=== PATIENT | female | born 1980 | race Caucasian/White ===

== ENCOUNTER → 2017-11-07 10:07 | Outpatient (CLI) | payer OTHER, SELFPAY ==
--- NOTE | 2017-11-07 10:09 | DI.US.S_ITS ---
PROCEDURE: US OB <= 14 WEEKS FETUS INDICATIONS: threatened ab OUTSIDE/PRIOR DATING DATA: Last menstrual period (LMP): Not available. LMP-based estimated date of delivery (MARCY): Not available. First dating scan (date and location): 11/07/17, this study. Estimated date of delivery (MARCY) from first dating scan: 06/23/18, plus or -5 days, assuming viable gestation. No cardiac activity was observed. TECHNIQUE: Real-time scanning was performed of the fetus and maternal pelvic organs, with image documentation. Endovaginal scanning was also performed to better visualize the fetus and maternal ovaries. COMPARISON: [facility], [place], KIDNEY/ URETER/BLADDER, 06/21/2014, 10:55. [facility], PELVIC COMPLETE, 06/21/2014, 12:38. [facility], OB COMPLETE LESS THAN 14 WKS, 10/18/2015, 16:40. [facility], OB COMPLETE LESS THAN 14 WKS, 10/27/2015, 15:34. [facility], PELVIC COMPLETE, 11/14/2015, 15:34. FINDINGS: Embryo: [place] rump length 1.2 cm correlates with a gestational age estimate of 7 weeks 3 days, but no cardiac activity was observed. Measurement variability in dating: +/- 4 weeks by LMP, +/- 7 days by mean sac diameter (use before 6 weeks gestation if crown-rump length not able to be measured), +/- 5 days by crown-rump length (up to 8 weeks 6 days gestation), +/- 7 days by crown-rump length (up to 13 weeks 6 days gestation). Maternal organs: Ovaries normal. Limited images through the kidneys demonstrate no hydronephrosis. Arcuate morphology of the uterus, right upper lateral positioning of the current gestational sac.. IMPRESSION: [place]-rump length of 1.2 cm correlates with a gestational age estimate of 7 weeks 3 days assuming viable gestation, but no cardiac activity was observed ( demise). The configuration of the upper uterus is arcuate in morphology, the gestational structures are located within the upper right margin of the endometrial space.. Dictated by: Varghese Ken M.D. on 11/07/2017 at 11:21 Approved by: Varghese Ken M.D. on 11/07/2017 at 11:29
== END ==
PROVIDERS: PCP Family Medicine; Visit Provider Obstetrics & Gynecology
DX: O20.0 Threatened abortion (principal)
CPT/HCPCS: 76801

== ENCOUNTER 2017-11-08 19:03 | Emergency (ER) | payer OTHER, SELFPAY ==
[2017-11-08 19:07] VITALS: BP 127/81; PULSE 112; RESP 23; TEMP 36.6; O2SAT 100; BMI 22.4
--- NOTE | 2017-11-08 19:29 | ED.PREGNANCY ---
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 She denies fever or chills and has had only minimal spotting but admits to very intense pelvic discomfort in the absence of provocation, palliation or radiation. She denies vaginal discharge or urinary complaints such as dysuria, frequency or urgency. She had a RhoGAM shot 2 days ago MD Complaint: vaginal bleeding Onset (ago): day(s) Pain Consistency: constant Location: pelvis Severity: moderate Quality: Aching, Burning and Constant Radiation: pelvis Relieving factors: none Exacerbating factors: movement Associated symptoms: nausea Vaginal discharge: none Vaginal bleeding: light OB History - Current : no complications OB History - Previous Pregnancies: miscarriage care: followed by OB Related Data Previous Rx's Medication Instructions Recorded alprazolam 0.5 mg PO QDAY #60 tab 02/12/17 ondansetron HCl [Zofran] 4 mg PO Q6-8H PRN #20 tab 11/08/17 tramadol [Ultram] 50 mg PO Q6H PRN #20 tab 11/08/17 Allergies Allergy/AdvReac Type Severity Reaction Status Date / Time hydromorphone [HYDROMORPHONE] AdvReac Severe severe Unverified 09/04/17 09:46 vomiting and dizziness amoxicillin [From AUGMENTIN] AdvReac Mild vomiting Unverified 09/04/17 09:46 ciprofloxacin [From CIPRO] AdvReac Mild vomiting Unverified 09/04/17 09:46 clavulanic acid AdvReac Mild vomiting Unverified 09/04/17 09:46 [From AUGMENTIN] favian [FAVIAN] AdvReac Mild vomiting Unverified 09/04/17 09:46 papaya [PAPAYA] AdvReac Mild vomiting Unverified 09/04/17 09:46 tramadol [TRAMADOL] AdvReac Mild vomiting Unverified 09/04/17 09:46 Review of Systems Review of Systems All systems reviewed & are unremarkable except as noted in HPI and below Constitutional Denies chills, Denies fever(s), Denies lethargy and Denies weakness Eyes Denies change in vision, Denies eye discharge, Denies irritation and Denies loss of vision ENT Ears, Nose, Mouth, and Throat: Denies change in voice, Denies neck pain and Denies sore throat Cardiovascular Denies chest pain, Denies irregular heart rhythm, Denies lightheadedness, Denies palpitations, Denies dyspnea, Denies dyspnea on exertion and Denies orthopnea Respiratory Denies cough, Denies dyspnea, Denies dyspnea on exertion and Denies wheezing Gastrointestinal Gastrointestinal: Denies abdominal pain, Denies change in bowel habits, Denies diarrhea, Denies nausea and Denies vomiting Genitourinary Reports abnormal vaginal bleeding, Denies hematuria, Reports pelvic pain, Denies flank pain, Denies urinary incontinence and Denies urinary urgency Musculoskeletal Denies neck pain Integumentary/Breasts Denies pruritus, Denies erythema, Denies rash and Denies wounds Neurologic Denies confusion, Denies loss of vision and Denies weakness Psychiatric Denies anxiety, Denies confusion, Denies depression, Denies homicidal ideation and Denies suicidal ideation Endocrine Denies palpitations Hematologic/Lymphatic Denies easy bruising Allergic/Immunologic Denies wheezing PMFSH - Past Medical History Medical history: Reports non-contributory 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 Extraoccular muscles are intact bilaterally. There is no subconjunctival hemorrhage or exudate. CHEST: Lungs are clear to auscultation bilaterally and free of wheezes, rales, or rhonchi. Heart rate is regular rhythm, there are no murmurs, clicks, rubs, or gallops. There is no chest wall tenderness. ABD: Abdomen is soft and moderately tender in her suprapubic region. There is no guarding or rebound. Bowel sounds are normal in all 4 quadrants. There is no mass or organomegaly. EXT: Full painless ROM of all extremities with no loss of sensation or strength. SKIN: Warm, pink, and dry. No erythema or rash Initial Vital Signs Initial Vital Signs: Vital Signs Temperature 97.8 F 11/08/17 19:07 Pulse Rate 112 H 11/08/17 19:07 Respiratory Rate 23 11/08/17 19:07 Blood Pressure 127/81 H 11/08/17 19:07 Pulse Oximetry 100 11/08/17 19:07 Course Orders Ordered: ED Orders 11/08/17 19:55 Basic Metabolic Panel Stat Complete Blood Count AUTO DIFF Stat HCG Quantitative Stat Discontinued Medications Sodium Chloride (Normal Saline 0.9%) 1,000 mls @ 1,000 mls/hr IV BOLUS ONE Stop: 11/08/17 20:44 Last Admin: 11/08/17 21:14 Dose: Not Given Misoprostol (Cytotec) 400 mcg PO NOW ONE Stop: 11/08/17 20:26 Last Admin: 11/08/17 21:14 Dose: Not Given Morphine Sulfate (Morphine) 4 mg IV NOW ONE Stop: 11/08/17 20:11 Last Admin: 11/08/17 20:12 Dose: 4 mg Ondansetron HCl (Zofran) 4 mg IV Q4HR PRN PRN Reason: Nausea And Vomiting Last Admin: 11/08/17 20:12 Dose: 4 mg Ondansetron HCl (Zofran Odt Prepack) 1 bottle MISC SEEINSTR ONE Stop: 11/08/17 21:05 Last Admin: 11/08/17 21:14 Dose: 1 bottle Tramadol HCl (Ultram 50mg Prepack) 1 bottle MISC SEEINSTR ONE Stop: 11/08/17 21:05 Last Admin: 11/08/17 21:14 Dose: 1 bottle Reevaluation(s) Reevaluation #1: Patient feels much better after above-stated medications. She refuses Cytotec given a bad experience in the past in which her pelvic discomfort was tremendously worsened after administration. She does state she just used the restroom and thinks she passed some tissue and now feels a bit better. She flushed the toilet and we are unable to see Consultations Consultation #1: Called to Dr. Ovalle whom recommends Cytotec 400 mg p.o. Vital Signs - 8 hr 11/08/17 19:07 11/08/17 20:23 11/08/17 21:18 Temperature 97.8 F 98.0 F Pulse Rate 112 H 71 72 Respiratory Rate 23 16 Blood Pressure 127/81 H Blood Pressure [Left Arm] 103/39 L 91/57 L Pulse Oximetry 100 99 99 MDM - OB/Uterine Contractions Lab Data Result diagrams: 11/08/17 19:55 11/08/17 19:55 Lab Results 11/08/17 11/08/17 11/08/17 Range/Units 19:55 19:55 19:55 WBC 12.2 H (4.5-11.0) X10^3/uL RBC 4.25 (4.0-5.2) X10^6/uL Hgb 12.7 (12.0-16.0) g/dL Hct 36.9 (36-46) % MCV 86.8 (80-100) fL MCH 29.9 (26-34) PG MCHC 34.5 (30-36) % RDW 12.0 (11.6-14.8) % Plt Count 307 (150-400) X10^3/uL Neut % (Auto) 68.4 (50-75) % Lymph % (Auto) 21.5 L (25-40) % [place] % (Auto) 6.4 (3-14) % Eos % (Auto) 3.0 (2-4) % Baso % (Auto) 0.7 (0-2) % Neut # (Auto) 8400 H (1262-8779) /uL Sodium 140 (137-145) mmol/L Potassium 4.5 (3.4-5.1) mmol/L Chloride 104 (98-107) mmol/L Carbon Dioxide 25 (22-32) mmol/L BUN 12 (7-17) mg/dL Creatinine 0.60 (0.52-1.04) mg/dL Estimated GFR > 60.0 (>60) mL/min BUN/Creatinine Ratio 20.0 (6-22) Glucose 93 (70-100) mg/dL Calcium 9.3 (8.4-10.2) mg/dL HCG, Quant 3269.6 mIU/mL Discharge Plan Departure Patient Disposition: Home Clinical Impression: , missed Discharge Date/Time: 11/08/17 21:25 Interventions: ED Discharge Assessment Last Done: 11/08/17 21:24 Instructions: DI for Miscarriage Activity Restrictions/Additional Instructions: *You have been diagnosed with [ missed ] *What to do: *Take medications as directed *Follow up with your primary care provider in 2-3 days, call for an appointment. Let them know you were seen in the Emergency Department and that we ask that you be seen in follow up *Return to ER if you should have any new, worsening or concerning symptoms Prescriptions: New ondansetron HCl [Zofran] 4 mg tablet 4 mg PO Q6-8H PRN (Reason: nausea and vomiting) Qty: 20 RF: 0 tramadol [Ultram] 50 mg tablet 50 mg PO Q6H PRN (Reason: pain) Qty: 20 RF: 0 No Action alprazolam 0.5 MG tablet 0.5 mg PO QDAY Qty: 60 RF: 5 Referrals: Jenifer Ovalle MD [Physician] -
[2017-11-08 20:02] LABS: Add Manual Diff / Slide Review NO; Basophils Percent Auto 0.7 % (0-2); Hematocrit 36.9 % (36-46); Hemoglobin 12.7 g/dL (12.0-16.0); Lymphocytes Percent Auto 21.5 % (25-40); Mean Corpuscular HGB Conc 34.5 % (30-36); Mean Corpuscular Hemoglobin 29.9 PG (26-34); Mean Corpuscular Volume 86.8 fL (80-100); Monocytes Percent Auto 6.4 % (3-14); Neutrophils Absolute Auto 8400 /uL (3000-5900); Neutrophils Percent Auto 68.4 % (50-75); Platelet Count 307 X10^3/uL (150-400); Red Blood Cell Count 4.25 X10^6/uL (4.0-5.2); White Blood Cell Count 12.2 X10^3/uL (4.5-11.0)
[2017-11-08] MEDS: ONDANSETRON 4 MG/2 ML INJ IV (20:12)
[2017-11-08] MEDS: MORPHINE 4 MG/ML INJ IV (20:12)
[2017-11-08 20:13] LABS: Blood Urea Nitrogen 12 mg/dL (7-17); Calcium 9.3 mg/dL (8.4-10.2); Carbon Dioxide 25 mmol/L (22-32); Chloride 104 mmol/L (98-107); Estimated Glomerular Filt Rate > 60.0 mL/min (>60); Glucose 93 mg/dL (70-100); Potassium 4.5 mmol/L (3.4-5.1); Sodium 140 mmol/L (137-145)
[2017-11-08 20:14] LABS: HEMOLYSIS 85 (0-50)
[2017-11-08 20:23] VITALS: BP 103/39; PULSE 71; RESP 16; TEMP 36.7; O2SAT 99
--- NOTE | 2017-11-08 20:25 | PC.NURSE ---
pt reports feeling passed sac while in the restroom.
[2017-11-08 20:38] LABS: HCG Quantitative /Beta subunit 3269.6 mIU/mL
[2017-11-08] MEDS: ONDANSETRON 4 MG ODT PREPACK 1 BOTTLE MISC (21:14)
[2017-11-08] MEDS: TRAMADOL 50 MG PREPACK 1 BOTTLE MISC (21:14)
[2017-11-08 21:18] VITALS: BP 91/57; PULSE 72; O2SAT 99
== END 2017-11-08 21:25 | disposition home or self-care (01) ==
PROVIDERS: Emergency Provider Emergency Medicine; PCP Family Medicine
DX: O02.1 Missed abortion (principal)
CPT/HCPCS: 36591; 80048; 84702; 85025; 96374; 96375; 99282; 99284; J2270; J2405

== ENCOUNTER → 2017-11-24 15:22 | Outpatient (CLI) | payer OTHER, SELFPAY | PROVIDERS: PCP Family Medicine; Visit Provider Obstetrics & Gynecology | DX: O03.9 Complete or unspecified spontaneous abortion without complication (principal) | CPT/HCPCS: 36415 ==

== ENCOUNTER → 2018-06-09 08:07 | Outpatient (CLI) | payer OTHER, SELFPAY ==
[2018-06-09 09:21] LABS: Add Manual Diff / Slide Review NO; Basophils Absolute Auto 0 /uL (0-100); Basophils Percent Auto 0.5 % (0-2); Eosinophils Absolute Auto 100 /uL (0-450); Eosinophils Percent Auto 0.9 % (2-4); Hemoglobin 14.1 g/dL (12.0-16.0); Lymphocytes Absolute Auto 2000 /uL (1100-4500); Lymphocytes Percent Auto 26.5 % (25-40); Mean Corpuscular HGB Conc 34.4 % (30-36); Mean Corpuscular Hemoglobin 30.9 PG (26-34); Mean Corpuscular Volume 89.9 fL (80-100); Monocytes Absolute Auto 500 /uL (0-900); Monocytes Percent Auto 7.1 % (3-14); Neutrophils Absolute Auto 4800 /uL (1500-7000); Platelet Count 305 X10^3/uL (150-400); Red Blood Cell Count 4.56 X10^6/uL (4.0-5.2); Red Cell Distribution Width 13.5 % (11.6-14.8); White Blood Cell Count 7.4 X10^3/uL (4.5-11.0)
[2018-06-09 09:43] LABS: Alanine Aminotransferase 26 IU/L (9-52); Albumin 4.4 g/dL (3.5-5.0); Albumin Globulin Ratio 1.5 (1.0-2.8); Alkaline Phosphatase 57 U/L (38-126); Aspartate Aminotransferase 27 IU/L (14-36); BUN Creatinine Ratio 18.3 (6-22); Bilirubin Total 0.8 mg/dL (0.2-1.3); Blood Urea Nitrogen 11 mg/dL (7-17); Calcium 9.3 mg/dL (8.4-10.2); Carbon Dioxide 22 mmol/L (22-32); Chloride 103 mmol/L (98-107); Cholesterol 232 mg/dL (140-199); Estimated Glomerular Filt Rate > 60.0 mL/min (>60); Glucose 81 mg/dL (70-100); HDL Cholesterol 59 mg/dL (40-60); HEMOLYSIS < 15 (0-50); LDL Cholesterol Calculated 150 mg/dL (<100); Potassium 4.1 mmol/L (3.4-5.1); Sodium 138 mmol/L (137-145); Total Protein 7.4 g/dL (6.3-8.2); Triglycerides 114 mg/dL (35-150)
[2018-06-09 09:59] LABS: Free T3, Triiodothyronine Free 3.31 pg/mL (2.77-5.27); Free T4, Direct Thyroxine 1.01 ng/dL (0.78-2.19)
[2018-06-09 10:20] LABS: Ferritin 40.9 ng/mL (6.27-137)
[2018-06-10 15:12] LABS: Thyroid Peroxidase Antibodies 1 IU/mL (< 9)
== END ==
PROVIDERS: PCP Family Medicine; Visit Provider Naturopath
DX: Z00.00 Encounter for general adult medical examination without abnormal findings (principal); R53.83 Other fatigue; Z83.49 Family history of other endocrine, nutritional and metabolic diseases
CPT/HCPCS: 36415; 80053; 80061; 82728; 84439; 84443; 84481; 85025; 86376

== ENCOUNTER → 2018-11-23 15:13 | Outpatient (CLI) | payer OTHER, SELFPAY ==
[2018-11-23 20:10] LABS: Urine N gonorrhoeae NOT DETECTED
[2018-11-23 20:12] LABS: Urine Chlamydia NOT DETECTED
== END ==
PROVIDERS: PCP Family Medicine; Visit Provider Specialist
DX: N76.0 Acute vaginitis (principal)
CPT/HCPCS: 87491; 87591

== ENCOUNTER → 2019-01-05 10:04 | Outpatient (CLI) | payer OTHER, SELFPAY ==
[2019-01-05 12:18] LABS: Appearance Urine UA CLEAR; Bilirubin Urine UA NEGATIVE (NEGATIVE); Color Urine UA YELLOW; Glucose Urine UA NEGATIVE (Negative); Ketones Urine UA NEGATIVE (NEGATIVE); Leukocyte Esterase Urine UA TRACE (NEGATIVE); Nitrite Urine UA NEGATIVE (Negative); Occult Blood Urine UA TRACE-LYSED (Negative); Protein Urine UA NEGATIVE (Negative); Specific Gravity Urine UA <=1.005 (1.000-1.035); Urobilinogen Urine UA 0.2 E.U./dL (0.2)
[2019-01-05 12:20] LABS: pH Urine UA 5.5 (4.5-8.0)
[2019-01-05 12:30] LABS: Bacteria Urine Occasional (0-1); Culture Indicated Urine Specimen Cultured; RBC Urine 0-1/HPF (0-5/HPF); Squamous Epithelial Cell Urine 1-5 /HPF (0-5/HPF); WBC Urine 0-1/HPF (0-5/HPF)
[2019-01-05 13:46] LABS: Urine N gonorrhoeae NOT DETECTED
[2019-01-05 13:51] LABS: Urine Chlamydia NOT DETECTED
== END ==
PROVIDERS: PCP Family Medicine; Visit Provider Nurse Practitioner
DX: R30.0 Dysuria (principal); R35.0 Frequency of micturition; Z72.51 High risk heterosexual behavior
CPT/HCPCS: 81003; 81015; 87077; 87086; 87147; 87491; 87591

== ENCOUNTER → 2019-01-26 07:15 | Outpatient (CLI) | payer OTHER, SELFPAY | PROVIDERS: PCP Family Medicine; Visit Provider Family Medicine | DX: N39.0 Urinary tract infection, site not specified (principal); R30.0 Dysuria | CPT/HCPCS: 87077; 87086; 87186 ==

== ENCOUNTER → 2019-01-28 08:53 | Outpatient (CLI) | payer OTHER, SELFPAY ==
[2019-01-28 09:51] LABS: Vitamin D 25 Hydroxy (D3) 60.6 ng/mL (30.0-100.0)
[2019-01-28 10:31] LABS: HIV 1 & 2 Ab/Ag 4th Gen Combo NEGATIVE (NEGATIVE)
== END ==
PROVIDERS: PCP Family Medicine; Visit Provider Obstetrics & Gynecology
DX: Z00.00 Encounter for general adult medical examination without abnormal findings (principal); R79.89 Other specified abnormal findings of blood chemistry
CPT/HCPCS: 36415; 82306; 87389

== ENCOUNTER → 2019-02-12 17:12 | Outpatient (CLI) | payer OTHER, SELFPAY | PROVIDERS: PCP Family Medicine; Visit Provider Nurse Practitioner | DX: N94.9 Unspecified condition associated with female genital organs and menstrual cycle (principal); R30.0 Dysuria | CPT/HCPCS: 87086; 87210 ==

== ENCOUNTER → 2020-01-24 09:47 | Outpatient (CLI) | payer OTHER, SELFPAY ==
[2020-01-24 12:11] LABS: Add Manual Diff / Slide Review NO; Basophils Absolute Auto 0 /uL (0-100); Basophils Percent Auto 0.6 % (0-2); Eosinophils Absolute Auto 100 /uL (0-450); Eosinophils Percent Auto 1.5 % (2-4); Hematocrit 43.2 % (36-46); Hemoglobin 14.3 g/dL (12.0-16.0); Lymphocytes Absolute Auto 1700 /uL (1100-4500); Lymphocytes Percent Auto 28.5 % (25-40); Mean Corpuscular Hemoglobin 30.6 PG (26-34); Mean Corpuscular Volume 92.8 fL (80-100); Monocytes Absolute Auto 600 /uL (0-900); Monocytes Percent Auto 9.3 % (3-14); Neutrophils Absolute Auto 3600 /uL (1500-7000); Neutrophils Percent Auto 60.1 % (50-75); Platelet Count 344 X10^3/uL (150-400); Red Blood Cell Count 4.65 X10^6/uL (4.0-5.2); Red Cell Distribution Width 12.1 % (11.6-14.8); White Blood Cell Count 5.9 X10^3/uL (4.5-11.0)
[2020-01-24 12:50] LABS: Alanine Aminotransferase 31 IU/L (<35); Albumin 4.3 g/dL (3.5-5.0); Albumin Globulin Ratio 1.5 (1.0-2.8); Alkaline Phosphatase 42 U/L (38-126); Aspartate Aminotransferase 35 IU/L (14-36); BUN Creatinine Ratio 12.7 (6-22); Bilirubin Total 0.5 mg/dL (0.2-1.3); Blood Urea Nitrogen 7 mg/dL (7-17); Calcium 9.3 mg/dL (8.4-10.2); Carbon Dioxide 20 mmol/L (22-32); Chloride 107 mmol/L (98-107); Cholesterol 201 mg/dL (140-199); Estimated Glomerular Filt Rate > 60.0 mL/min (>60); Globulin 2.9 g/dL (1.7-4.1); Glucose 70 mg/dL (70-100); HDL Cholesterol 37 mg/dL (40-60); HEMOLYSIS < 15 (0-50); LDL Cholesterol Calculated 145 mg/dL (<100); Potassium 4.6 mmol/L (3.4-5.1); Sodium 137 mmol/L (137-145); Total Protein 7.2 g/dL (6.3-8.2); Triglycerides 96 mg/dL (35-150)
[2020-01-24 13:08] LABS: Free T3, Triiodothyronine Free 2.71 pg/mL (2.77-5.27); Free T4, Direct Thyroxine 1.14 ng/dL (0.78-2.19)
[2020-01-24 13:21] LABS: Thyroid Stimulating Hormone 1.84 uIU/mL (0.47-4.68)
[2020-01-26 07:27] LABS: Ferritin 56 ng/mL (6-137)
== END ==
PROVIDERS: PCP Family Medicine; Referring Provider Family Medicine; Visit Provider Family Medicine
DX: L65.9 Nonscarring hair loss, unspecified (principal)
CPT/HCPCS: 36415; 80053; 80061; 82728; 83001; 83002; 84439; 84443; 84481; 85025

== ENCOUNTER → 2020-03-24 12:16 | Outpatient (CLI) | payer OTHER, SELFPAY ==
[2020-03-24 12:21] LABS: Bacteria Urine None Seen
[2020-03-24 12:51] LABS: Appearance Urine UA CLEAR; Bilirubin Urine UA NEGATIVE (NEGATIVE); Color Urine UA YELLOW; Glucose Urine UA NEGATIVE (Negative); Ketones Urine UA NEGATIVE (NEGATIVE); Leukocyte Esterase Urine UA NEGATIVE (NEGATIVE); Nitrite Urine UA NEGATIVE (Negative); Occult Blood Urine UA 3+ (Negative); Protein Urine UA NEGATIVE (Negative); Specific Gravity Urine UA <=1.005 (1.000-1.035); Urobilinogen Urine UA 0.2 E.U./dL (0.2)
[2020-03-24 12:52] LABS: pH Urine UA 6.5 (4.5-8.0)
[2020-03-24 13:13] LABS: Culture Indicated Urine Cult Not Indicated; RBC Urine 1-5/HPF (0-5/HPF); Squamous Epithelial Cell Urine 0-1 /HPF (0-5/HPF); WBC Urine 0-1/HPF (0-5/HPF)
== END ==
PROVIDERS: PCP Family Medicine; Referring Provider Family Medicine; Visit Provider Family Medicine
DX: R30.0 Dysuria (principal); R35.0 Frequency of micturition
CPT/HCPCS: 81001

== ENCOUNTER → 2020-06-09 08:39 | Outpatient (CLI) | payer OTHER, SELFPAY ==
[2020-06-09 09:47] LABS: Cholesterol 244 mg/dL (140-199); HDL Cholesterol 50 mg/dL (40-60); LDL Cholesterol Calculated 167 mg/dL (<100); Triglycerides 136 mg/dL (35-150)
[2020-06-09 10:13] LABS: Free T3, Triiodothyronine Free 3.13 pg/mL (2.77-5.27); Free T4, Direct Thyroxine 1.08 ng/dL (0.78-2.19)
[2020-06-09 10:27] LABS: Thyroid Stimulating Hormone 1.01 uIU/mL (0.47-4.68)
== END ==
PROVIDERS: PCP Family Medicine; Referring Provider Family Medicine; Visit Provider Family Medicine
DX: E03.9 Hypothyroidism, unspecified (principal); E78.00 Pure hypercholesterolemia, unspecified
CPT/HCPCS: 36415; 80061; 84439; 84443; 84481

== ENCOUNTER → 2020-09-08 07:59 | Outpatient (CLI) | payer OTHER, SELFPAY ==
[2020-09-08 10:27] LABS: Cholesterol 266 mg/dL (140-199); HDL Cholesterol 51 mg/dL (40-60); LDL Cholesterol Calculated 157 mg/dL (<100); Triglycerides 289 mg/dL (35-150)
[2020-09-08 10:35] LABS: Free T3, Triiodothyronine Free 3.63 pg/mL (2.77-5.27); Free T4, Direct Thyroxine 0.87 ng/dL (0.78-2.19)
[2020-09-08 10:49] LABS: Thyroid Stimulating Hormone 1.43 uIU/mL (0.47-4.68)
== END ==
PROVIDERS: PCP Family Medicine; Referring Provider Family Medicine; Visit Provider Family Medicine
DX: E03.9 Hypothyroidism, unspecified (principal); E78.00 Pure hypercholesterolemia, unspecified
CPT/HCPCS: 36415; 80061; 84439; 84443; 84481

== ENCOUNTER → 2020-10-13 09:19 | Outpatient (CLI) | payer OTHER, SELFPAY | PROVIDERS: PCP Family Medicine; Visit Provider Registered Nurse | DX: N39.0 Urinary tract infection, site not specified (principal) | CPT/HCPCS: 87077; 87086; 87186 ==

== ENCOUNTER → 2020-12-13 08:15 | Outpatient (CLI) | payer OTHER, SELFPAY | PROVIDERS: PCP Family Medicine; Visit Provider Physician Assistant | DX: R30.9 Painful micturition, unspecified (principal) | CPT/HCPCS: 87077; 87086; 87186 ==

== ENCOUNTER → 2021-03-09 09:21 | Outpatient (CLI) | payer OTHER, SELFPAY | PROVIDERS: PCP Family Medicine; Visit Provider Physician Assistant | DX: Z20.822 Contact with and (suspected) exposure to COVID-19 (principal); N34.3 Urethral syndrome, unspecified | CPT/HCPCS: 87086 ==

== ENCOUNTER → 2021-03-21 11:41 | Outpatient (CLI) | payer OTHER, SELFPAY | PROVIDERS: PCP Family Medicine; Visit Provider Registered Nurse Diabetes Educator | DX: R30.0 Dysuria (principal) | CPT/HCPCS: 87086 ==

== ENCOUNTER → 2021-04-18 10:14 | Outpatient (CLI) | payer OTHER, SELFPAY ==
[2021-04-18 13:11] LABS: Urine N gonorrhoeae NOT DETECTED
[2021-04-18 14:03] LABS: Urine Chlamydia NOT DETECTED
== END ==
PROVIDERS: PCP Family Medicine; Visit Provider Physician Assistant
DX: R30.0 Dysuria (principal)
CPT/HCPCS: 87077; 87086; 87186; 87491; 87591

== ENCOUNTER → 2021-04-26 12:24 | Outpatient (CLI) | payer OTHER, SELFPAY ==
--- NOTE | 2021-04-26 12:26 | DI.CT.S_ITS ---
PROCEDURE: CT KIDNEY URETER BLADDER (KUB) INDICATIONS: dysuria/ frequency TECHNIQUE: Axial sections were acquired from the lung bases to the pubic symphysis. Coronal and sagittal reformats were performed. For radiation dose reduction, the following was used: automated exposure control, adjustment of mA and/or kV according to patient size. COMPARISON: None. FINDINGS: Image quality: Excellent. Lung bases: Unremarkable. Heart: No significant findings. URINARY: Right Kidney: No stones or hydronephrosis. Right Ureter: No hydroureter. Left Kidney: No stones or hydronephrosis. Left Ureter: No hydroureter. Bladder: Normal wall thickness. No stones. ABDOMEN: Liver: Unremarkable. Gallbladder: Unremarkable. Biliary ducts: Unremarkable. Pancreas: Unremarkable. Spleen: Unremarkable. Adrenal Glands: Unremarkable. Stomach and Bowel: Stomach, small bowel loops, and colon are unremarkable. A normal appendix is incidentally noted. Mild distal colonic diverticulosis is seen, without findings of active diverticulitis. Peritoneum: No abnormal intraperitoneal fluid. No free air. Ventral Wall: No hernia. Abdominal Nodes: No enlarged retroperitoneal or mesenteric lymph nodes. Vessels: Aorta and inferior vena cava are normal in size. PELVIS: Pelvic Organs: The uterus appears normal for age. No adnexal masses are seen. Pelvic Nodes: Unremarkable. Miscellaneous: No inguinal hernias are seen. Bones: Mild levoconvex scoliotic curvature is noted. IMPRESSION: No imaging explanation is found for this patient's presenting symptoms. No findings of kidney stones or obstructive uropathy. Dictated by: Wilman Harman M.D. on 04/26/2021 at 14:34 Approved by: Wilman Harman M.D. on 04/26/2021 at 14:35
== END ==
PROVIDERS: PCP Family Medicine; Referring Provider Physician Assistant; Visit Provider Physician Assistant
DX: R30.0 Dysuria (principal); R35.0 Frequency of micturition; K57.90 Diverticulosis of intestine, part unspecified, without perforation or abscess without bleeding
CPT/HCPCS: 74176

== ENCOUNTER → 2021-07-09 07:44 | Outpatient (CLI) | payer OTHER, SELFPAY | PROVIDERS: PCP Family Medicine; Visit Provider Physician Assistant | DX: R30.0 Dysuria (principal) | CPT/HCPCS: 87086 ==

== ENCOUNTER → 2021-08-15 14:42 | Outpatient (CLI) | payer OTHER, SELFPAY ==
[2021-08-15 17:31] LABS: Add Manual Diff / Slide Review NO; Basophils Absolute Auto 100 /uL (0-100); Basophils Percent Auto 0.6 % (0-2); Eosinophils Absolute Auto 100 /uL (0-450); Eosinophils Percent Auto 0.7 % (2-4); Hematocrit 41.2 % (36-46); Hemoglobin 14.3 g/dL (12.0-16.0); Lymphocytes Absolute Auto 2000 /uL (1100-4500); Lymphocytes Percent Auto 21.4 % (25-40); Mean Corpuscular HGB Conc 34.8 % (30-36); Mean Corpuscular Hemoglobin 31.5 PG (26-34); Mean Corpuscular Volume 90.6 fL (80-100); Monocytes Absolute Auto 600 /uL (0-900); Neutrophils Absolute Auto 6600 /uL (1500-7000); Neutrophils Percent Auto 71.3 % (50-75); Platelet Count 342 X10^3/uL (150-400); Red Blood Cell Count 4.55 X10^6/uL (4.0-5.2); Red Cell Distribution Width 13.2 % (11.6-14.8); White Blood Cell Count 9.3 X10^3/uL (4.5-11.0)
[2021-08-15 17:51] LABS: HEMOLYSIS < 15 (0-50); Iron 130 ug/dL (37-170)
[2021-08-15 18:04] LABS: Percent Iron Saturation 37 % (15-50); Total Iron Binding Capacity 348 ug/dL (265-497); Transferrin 271 mg/dL (206-381)
[2021-08-15 18:09] LABS: Follicle Stimulating Hormone 1.22 mIU/mL; Luteinizing Hormone 0.481 mIU/mL
[2021-08-15 18:18] LABS: Free T4, Direct Thyroxine 1.14 ng/dL (0.78-2.19)
[2021-08-15 18:26] LABS: Ferritin 114 ng/mL (6-137)
[2021-08-15 18:31] LABS: Thyroid Stimulating Hormone 0.049 uIU/mL (0.47-4.68)
[2021-08-17 13:10] LABS: ANA Screen, IFA Negative (.)
[2021-08-20 11:49] LABS: Percent Free Testosterone 1.43 % (0.50-2.80); Testosterone Free 0.37 ng/dL (0.10-0.85); Testosterone Total 25.6 ng/dL (.)
[2021-08-28 09:21] LABS: Triiodothyronine T3 Reverse 13.1 ng/dL (9.2-24.1)
== END ==
PROVIDERS: PCP Family Medicine; Referring Provider Obstetrics & Gynecology; Visit Provider Obstetrics & Gynecology
DX: L65.9 Nonscarring hair loss, unspecified (principal); N90.4 Leukoplakia of vulva
CPT/HCPCS: 36415; 82728; 83001; 83002; 83540; 83550; 84402; 84403; 84439; 84443; 84481; 84482; 85025; 86038

== ENCOUNTER → 2022-07-07 10:17 | Outpatient (CLI) | payer OTHER, SELFPAY ==
[2022-07-07 11:23] LABS: Influenza A - CEPHEID Flu A NEGATIVE (NEGATIVE); Influenza B - CEPHEID Flu B NEGATIVE (NEGATIVE); Respiratory Syncytial Virus Negative (Negative)
[2022-07-07 11:47] LABS: COVID-19 CEPHEID 4-PLEX PCR Negative (Negative)
== END ==
PROVIDERS: PCP Family Medicine; Visit Provider Physician Assistant
DX: R05.9 Cough, unspecified (principal)
CPT/HCPCS: 0241U

== ENCOUNTER → 2022-07-07 13:30 | Outpatient (CLI) | payer OTHER, SELFPAY ==
--- NOTE | 2022-07-07 13:32 | DI.RAD.S_ITS ---
PROCEDURE: XR CHEST 2V INDICATIONS: Cough x 1 month TECHNIQUE: 2 views of the chest were acquired. COMPARISON: [facility], , CHEST 2 VIEW, 12/20/2006, 19:00. FINDINGS: Surgical changes and devices: None. Lungs and pleura: Lungs are clear. No pleural effusions or pneumothorax. Mediastinum: Mediastinal contours are normal. Heart size is normal. Bones and chest wall: No suspicious bony abnormalities. Soft tissues appear unremarkable. IMPRESSION: Normal two view chest x-ray Approved by: Brandon Thomas M.D. on 07/07/2022 at 14:36
== END ==
PROVIDERS: PCP Family Medicine; Referring Provider Physician Assistant; Visit Provider Physician Assistant
DX: R05.9 Cough, unspecified (principal)
CPT/HCPCS: 0241U; 71046

== ENCOUNTER 2022-12-20 07:04 | Emergency (ER) | payer OTHER, SELFPAY ==
[2022-12-20] VITALS (8 sets, daily range): BP systolic 103–125; BP diastolic 55–85; PULSE 78–112; RESP 18; TEMP 37.1; O2SAT 98–100; BMI 20.1
--- NOTE | 2022-12-20 07:38 | DI.CT.S_ITS ---
PROCEDURE: CT KIDNEY URETER BLADDER (KUB) INDICATIONS: flank pain TECHNIQUE: Axial sections were acquired from the lung bases to the pubic symphysis. Coronal and sagittal reformats were performed. For radiation dose reduction, the following was used: automated exposure control, adjustment of mA and/or kV according to patient size. COMPARISON: [facility], CT, CT KIDNEY URETER BLADDER (KUB), 04/26/2021, 12:31. FINDINGS: Image quality: Excellent. Lung bases: Unremarkable. Heart: No significant findings. URINARY: Right Kidney: No stones or hydronephrosis. Right Ureter: No hydroureter. Left Kidney: No stones or hydronephrosis. Left Ureter: No hydroureter. Bladder: Normal wall thickness. No stones. ABDOMEN: Liver: Hepatic steatosis. Gallbladder: Unremarkable. Biliary ducts: Unremarkable. Pancreas: Unremarkable. Spleen: Unremarkable. Adrenal Glands: Unremarkable. Stomach and Bowel: Stomach, small bowel loops, and colon are unremarkable. Appendix is normal. Peritoneum: No abnormal intraperitoneal fluid. No free air. Ventral Wall: No hernia. Abdominal Nodes: No enlarged retroperitoneal or mesenteric lymph nodes. Vessels: Aorta and inferior vena cava are normal in size. PELVIS: Pelvic Organs: Unremarkable. Pelvic Nodes: Unremarkable. Miscellaneous: No inguinal hernias are seen. Bones: L5 pars defect. IMPRESSION: No renal or ureteral calculi. Dictated by: Dorota Lynch M.D. on 12/20/2022 at 8:26 Approved by: Dorota Lynch M.D. on 12/20/2022 at 8:33
--- NOTE | 2022-12-20 07:42 | ED.ABDPAIN ---
HPI - Abdominal Pain General Chief Complaint: Urogenital-Female Stated Complaint: kidney stone Time Seen by Provider: 12/20/22 07:36 Source: patient Mode of arrival: Ambulatory History of Present Illness HPI narrative: Patient brought here by for complaints of possible kidney stone. Patient states has had kidney stones in the past. Has had surgeries for removal in the past. Patient states pain started about 2 days ago. Not specifically unilateral but bilateral lower abdominal pain radiating to the back. No urinary urgency or frequency. Can not get comfortable position. No fever chills. Has had morphine in the past without allergic reaction. Nothing makes it better or worse. Started slowly 2 days ago. LMP now. Denies . Related Data Home Medications Medication Instructions Recorded Confirmed cetirizine 10 mg tablet (Zyrtec) 10 mg PO DAILY PRN 07/23/22 10/16/22 Previous Rx's Medication Instructions Recorded clobetasol 0.05 % topical ointment See Rx Instructions .Route 06/11/19 .COMPLEX #30 grams estradiol 0.01% (0.1 mg/gram) See Rx Instructions .Route 08/17/21 vaginal cream .COMPLEX #42.5 grams disulfiram 250 mg tablet See Rx Instructions .Route 12/20/21 .COMPLEX #30 tabs alprazolam 1 mg tablet 1 mg PO BID-TID PRN anxiety #120 08/09/22 tabs Allergies Allergy/AdvReac Type Severity Reaction Status Date / Time hydromorphone [HYDROMORPHONE] AdvReac Severe severe Verified 10/16/22 15:36 vomiting and dizziness levothyroxine AdvReac Intermediate Bloating Verified 10/16/22 15:36 amoxicillin [From AUGMENTIN] AdvReac Mild vomiting Verified 10/16/22 15:36 ciprofloxacin [From CIPRO] AdvReac Mild vomiting Verified 10/16/22 15:36 clavulanic acid AdvReac Mild vomiting Verified 10/16/22 15:36 [From AUGMENTIN] favian [FAVIAN] AdvReac Mild vomiting Verified 10/16/22 15:36 papaya [PAPAYA] AdvReac Mild vomiting Verified 10/16/22 15:36 tramadol [TRAMADOL] AdvReac Mild vomiting Verified 10/16/22 15:36 Review of Systems Review of Systems Narrative: GENERAL: negative chills, fatigue, malaise, fever, sweats. HEENT: negative sinus pain, ear pain, sore throat RESPIRATORY: negative dyspnea, cough CARDIOVASCULAR: negative chest pain, palpitations GASTROINTESTINAL: negative nausea, vomiting, positive abdominal pain : negative dysuria, frequency, hematuria MUSCULOSKELETAL: negative muscle or bony pain SKIN: negative rash, skin lesions NEUROLOGIC: negative weakness, numbness ROS Unobtainable: All systems reviewed & are unremarkable except as noted in HPI and below Patient History Medical History Chronic seasonal allergic rhinitis Alcohol abuse Irregular periods/menstrual cycles Moderate mixed hyperlipidemia not requiring statin therapy Borderline hypothyroidism Alopecia Lichen sclerosus et atrophicus of the vulva Depression Anxiety GERD (gastroesophageal reflux disease) Surgical History History of nephrolithotomy with removal of calculi (2012) History of third molar tooth extraction (1998) Status post delivery (2008) Family History Mother Thyroid disease Father Heart valve disorder Social History Smoking Status: Former smoker Smoking Status: Former smoker Substance Use Type: does not use Exam Narrative Exam Narrative: GENERAL: in no distress, not toxic not dyspneic HEAD: Normocephalic. EYES: Pupils equal round ENT: Mucous membranes moist. NECK: Trachea midline. CARDIOVASCULAR: Regular rate and rhythm RESPIRATORY: Clear to auscultation. Breath sounds equal bilaterally. No wheezes, rales, or rhonchi. GASTROINTESTINAL: Abdomen soft, non-tender, abdomen is soft flat nontender no peritoneal signs bowel sounds are present. No CVA tenderness. No pain out of proportion to exam. EXTREMITIES: No gross deformities. BACK: No flank tenderness. NEURO: AOx4. SKIN: Warm and dry PSYCH: Not anxious, is cooperative Initial Vital Signs Initial Vital Signs: Vital Signs Pulse Rate 108 H 12/20/22 07:23 Blood Pressure 125/85 12/20/22 07:23 Pulse Oximetry 98 12/20/22 07:23 Course Orders Ordered: ED Orders 12/20/22 10:05 Urine Culture Stat Urine Microscopic Stat Discontinued Medications Sodium Chloride (Normal Saline 0.9%) 1,000 mls @ 1,000 mls/hr IV BOLUS ONE Stop: 12/20/22 08:35 Last Infusion: 12/20/22 08:47 Dose: Infused Documented By: Admin: 12/20/22 07:49 Dose: 1,000 mls/hr Documented By: GERARD Morphine Sulfate (Morphine 4 Mg/Ml Inj) 2 mg IV NOW ONE Stop: 12/20/22 07:38 Last Admin: 12/20/22 07:49 Dose: 2 mg Documented By: GERARD Morphine Sulfate (Morphine 4 Mg/Ml Inj) 4 mg IV NOW ONE Stop: 12/20/22 08:28 Last Admin: 12/20/22 08:33 Dose: 4 mg Documented By: GERARD Ondansetron HCl (Ondansetron 4 Mg/2 Ml Inj) 4 mg IV NOW PRN PRN Reason: Nausea And Vomiting Last Admin: 12/20/22 07:49 Dose: 4 mg Documented By: GERARD Vital Signs Vital signs: Vital Signs - 8 hr 12/20/22 07:23 12/20/22 07:23 12/20/22 07:24 Temperature 98.7 F Pulse Rate 108 H 112 H Respiratory Rate 18 Blood Pressure 125/85 125/85 Pulse Oximetry 98 12/20/22 07:30 12/20/22 07:30 12/20/22 08:20 Temperature Pulse Rate 101 H 105 H Respiratory Rate Blood Pressure 106/61 Pulse Oximetry 99 99 12/20/22 08:26 12/20/22 08:26 12/20/22 08:30 Temperature Pulse Rate 91 H Respiratory Rate Blood Pressure 110/70 108/66 Pulse Oximetry 100 12/20/22 08:30 12/20/22 09:00 12/20/22 09:00 Temperature Pulse Rate 92 H 94 H Respiratory Rate Blood Pressure 112/55 L Pulse Oximetry 100 99 12/20/22 09:30 12/20/22 09:30 Temperature Pulse Rate 78 Respiratory Rate Blood Pressure 103/68 Pulse Oximetry 98 MDM - Abdominal Pain Lab Data 12/20/22 07:20 12/20/22 07:20 Labs: Lab Results 12/20/22 12/20/22 Range/Units 07:20 10:05 WBC 6.7 (4.5-11.0) X10^3/uL RBC 4.36 (4.0-5.2) X10^6/uL Hgb 14.4 (12.0-16.0) g/dL Hct 41.3 (36-46) % MCV 94.8 (80-100) fL MCH 33.1 (26-34) PG MCHC 34.9 (30-36) % RDW 13.2 (11.6-14.8) % Plt Count 298 (150-400) X10^3/uL Neut % (Auto) 65.1 (50-75) % Lymph % (Auto) 23.4 L (25-40) % [place] % (Auto) 7.4 (3-14) % Eos % (Auto) 2.8 (2-4) % Baso % (Auto) 1.3 (0-2) % Neut # (Auto) 4400 (5874-9188) /uL Lymph # (Auto) 1600 (6883-9761) /uL [place] # (Auto) 500 (0-900) /uL Eos # (Auto) 200 (0-450) /uL Baso # (Auto) 100 (0-100) /uL Sodium 134 L (137-145) mmol/L Potassium 4.2 (3.4-5.1) mmol/L Chloride 103 (98-107) mmol/L Carbon Dioxide 10 L (22-32) mmol/L BUN 7 (7-17) mg/dL Creatinine 0.60 (0.52-1.04) mg/dL Estimated GFR > 60 (>60) mL/min BUN/Creatinine Ratio 11.7 (6-22) Glucose 274 H (70-100) mg/dL Calcium 9.6 (8.4-10.2) mg/dL Total Bilirubin 0.7 (0.2-1.3) mg/dL AST 32 (14-36) IU/L ALT 34 (<35) IU/L Alkaline Phosphatase 102 (38-126) U/L Total Protein 7.5 (6.3-8.2) g/dL Albumin 4.2 (3.5-5.0) g/dL Globulin 3.3 (1.7-4.1) g/dL Albumin/Globulin Ratio 1.3 (1.0-2.8) Lipase 61 (23-300) U/L Serum , Qual Negative (Negative) Urine RBC None seen (0-5/HPF) Urine WBC 1-5/hpf (0-5/HPF) Ur Squamous Epith Cells 0-1 /hpf (0-5/HPF) Urine Bacteria Occasional (0-1) (None) Ur Culture Indicated? Specimen cultured Point of care testing: Urine Dip Bedside Urine Glucose Negative Bedside Urine Bilirubin - Negative Bedside Urine Ketone +++ 80 Urine Specific [place] 1.030 Bedside Urine Occult Blood +++ Bedside Urine pH 6.0 Bedside Urine Protein + 30 Bedside Urine Urobilinogen - Negative Bedside Urine Nitrite - Negative Bedside Urine Leukocytes - Negative Esterase MDM Narrative Medical decision making narrative: Patient brought here by for complaints of possible kidney stone. Patient states has had kidney stones in the past. Has had surgeries for removal in the past. Patient states pain started about 2 days ago. Not specifically unilateral but bilateral lower abdominal pain radiating to the back. No urinary urgency or frequency. Can not get comfortable position. No fever chills. Has had morphine in the past without allergic reaction. Nothing makes it better or worse. Started slowly 2 days ago. LMP now. Denies . After history and exam CBC CMP urinalysis test CT KUB morphine Zofran normal saline MDM CC: Abdominal pain Complicating co-morbidities: History of kidney stone Data collected from: Patient Medical records reviewed: No recent ER visit Differential considered: Includes but not limited to kidney stone cystitis pyelonephritis diverticulitis diverticulosis appendicitis bowel obstruction Exam documented above, pertinent findings include: Nontender abdomen Lab Test results independently reviewed as above. Pertinent findings: WBC 6.7 hemoglobin 14.4 sodium 134 potassium 4.2 bicarb 10 BUN 7 creatinine 0.6 GFR greater than 60 negative Urinalysis negative nitrite negative leukocyte, positive ketones, positive blood likely secondary to patient on menstrual cycle Imaging studies independently reviewed: CT abdomen pelvis no acute findings Treatments: Morphine Zofran normal saline Re-evaluations: 10:22 a.m.. Patient doing much better. Reviewed with patient, at bedside, results. They are reassuring at this time. However return precautions reviewed with them. Appendicitis precautions reviewed with them. Not toxic at discharge. Did desire discharge home Discussion: Appropriate for discharge home. Exam and laboratory studies imaging are reassuring. Nontoxic at discharge. Pain is controlled. is driving. Referral for general surgeon provided. Patient and desire discharge home. No prescriptions indicated at this time. Diagnosis: Abdominal pain Discharge Plan Departure Patient Disposition: Home Clinical Impression: Abdominal pain Qualifiers: Abdominal location: unspecified location Qualified Code(s): R10.9 - Unspecified abdominal pain Instructions: DI for Abdominal Pain-Adult Activity Restrictions/Additional Instructions: No driving or operating machinery today. Please call provided general surgery office with Dr. Aguilar on Friday for office re-evaluation and possible endoscopy. Return if worse if any questions or concerns. At this time laboratory studies and imaging are reassuring. No prescriptions or antibiotics are indicated. Prescriptions: No Action clobetasol 0.05 % ointment See Rx Instructions .ROUTE .COMPLEX Qty: 30 2RF Dose Instruction: Apply topically to affected area(s) once every morning Rx Instructions: Apply topically to affected area(s) once every morning estradiol 0.01 % (0.1 mg/gram) cream See Rx Instructions .ROUTE .COMPLEX Qty: 42.5 0RF Dose Instruction: Apply 0.3 grams vaginally to affected area every night until next visit Rx Instructions: Apply 0.3 grams vaginally to affected area every night until next visit disulfiram 250 mg tablet See Rx Instructions .ROUTE .COMPLEX Qty: 30 0RF Dose Instruction: TAKE ONE TABLET BY MOUTH ONE TIME DAILY Rx Instructions: TAKE ONE TABLET BY MOUTH ONE TIME DAILY alprazolam 1 mg tablet 1 mg PO BID-TID PRN (Reason: anxiety) Qty: 120 3RF cetirizine [Zyrtec] 10 mg tablet 10 mg PO DAILY PRN Referrals: Bari Chacon DO [Primary Care Provider] - Stand Alone Forms: Patient Portal/API
[2022-12-20 07:47] LABS: Alanine Aminotransferase 34 IU/L (<35); Albumin 4.2 g/dL (3.5-5.0); Albumin Globulin Ratio 1.3 (1.0-2.8); Alkaline Phosphatase 102 U/L (38-126); Aspartate Aminotransferase 32 IU/L (14-36); BUN Creatinine Ratio 11.7 (6-22); Bilirubin Total 0.7 mg/dL (0.2-1.3); Blood Urea Nitrogen 7 mg/dL (7-17); Calcium 9.6 mg/dL (8.4-10.2); Carbon Dioxide 10 mmol/L (22-32); Chloride 103 mmol/L (98-107); Estimated Glomerular Filt Rate > 60 mL/min (>60); Globulin 3.3 g/dL (1.7-4.1); Glucose 274 mg/dL (70-100); HEMOLYSIS < 15 (0-50); Lipase 61 U/L (23-300); Potassium 4.2 mmol/L (3.4-5.1); Sodium 134 mmol/L (137-145); Total Protein 7.5 g/dL (6.3-8.2)
[2022-12-20] MEDS: MORPHINE 4 MG/ML INJ 2 MG IV (07:49)
[2022-12-20] MEDS: ONDANSETRON 4 MG/2 ML INJ IV (07:49)
[2022-12-20] MEDS: SODIUM CHLORIDE 0.9% 1,000 ML 1000 ML IV (07:49)
[2022-12-20 07:50] LABS: Pregnancy Test Serum,Qual Negative (Negative)
[2022-12-20 07:54] LABS: Add Manual Diff / Slide Review NO; Basophils Absolute Auto 100 /uL (0-100); Basophils Percent Auto 1.3 % (0-2); Eosinophils Absolute Auto 200 /uL (0-450); Eosinophils Percent Auto 2.8 % (2-4); Hematocrit 41.3 % (36-46); Hemoglobin 14.4 g/dL (12.0-16.0); Lymphocytes Absolute Auto 1600 /uL (1100-4500); Lymphocytes Percent Auto 23.4 % (25-40); Mean Corpuscular HGB Conc 34.9 % (30-36); Mean Corpuscular Hemoglobin 33.1 PG (26-34); Mean Corpuscular Volume 94.8 fL (80-100); Monocytes Absolute Auto 500 /uL (0-900); Monocytes Percent Auto 7.4 % (3-14); Neutrophils Absolute Auto 4400 /uL (1500-7000); Neutrophils Percent Auto 65.1 % (50-75); Platelet Count 298 X10^3/uL (150-400); Red Blood Cell Count 4.36 X10^6/uL (4.0-5.2); Red Cell Distribution Width 13.2 % (11.6-14.8); White Blood Cell Count 6.7 X10^3/uL (4.5-11.0)
[2022-12-20] MEDS: MORPHINE 4 MG/ML INJ IV (08:33)
[2022-12-20 10:13] LABS: Bacteria Urine Occasional (0-1); Culture Indicated Urine Specimen Cultured; RBC Urine None Seen (0-5/HPF); Squamous Epithelial Cell Urine 0-1 /HPF (0-5/HPF); WBC Urine 1-5/HPF (0-5/HPF)
== END 2022-12-20 10:30 | disposition home or self-care (01) ==
PROVIDERS: Emergency Provider Emergency Medicine; PCP Family Medicine
DX: R10.9 Unspecified abdominal pain (principal); Z87.442 Personal history of urinary calculi
CPT/HCPCS: 36415; 74176; 80053; 81003; 81015; 83690; 84703; 85025; 87086; 93005; 99284; J2270; J2405

== ENCOUNTER 2022-12-21 08:11 | Inpatient (IN) | payer OTHER, SELFPAY ==
[2022-12-21] VITALS (36 sets, daily range): BP systolic 94–121; BP diastolic 55–80; PULSE 84–120; RESP 12–38; TEMP 36.6–37.3; O2SAT 94–100; BMI 20.1
--- NOTE | 2022-12-21 08:21 | DI.US.S_ITS ---
PROCEDURE: US ABDOMEN LIMITED INDICATIONS: Upper abd pain, ? gallstone TECHNIQUE: Real-time focused scanning was performed of the abdomen, with image documentation. COMPARISON: None. FINDINGS: The liver demonstrates normal size. The liver demonstrates generalized moderately increased echogenicity. This decreases ultrasound sensitivity for detection of hepatic masses. The gallbladder is overall not well seen. No findings of gallstones or sludge are seen. The gallbladder wall is not thickened, measuring 3 mm or less. No specific pericholecystic fluid is seen. The sonographic Maharaj sign is negative. There is no biliary dilatation, the common bile duct measures 6 mm. There is a potential pancreatic head mass measuring 2.9 x 2.4 x 3.3 cm. IMPRESSION: No gallstones are seen. Potential pancreatic head mass. Differential diagnosis includes artifact from a duodenal diverticulum. Please consider pancreas protocol CT or MRI (without and with contrast) for further evaluation. Additional findings: Fatty liver infiltration Dictated by: Wilman Harman M.D. on 12/21/2022 at 8:48 Approved by: Wilman Harman M.D. on 12/21/2022 at 8:52
--- NOTE | 2022-12-21 08:22 | ED.GENADULT ---
HPI - General Adult General Chief complaint: Abdominal Pain Stated complaint: poss hernia, increased pain t-1 Time Seen by Provider: 12/21/22 08:15 History of Present Illness HPI narrative: Otherwise healthy 42-year-old woman now with 3 days of abdominal pain, seen in the emergency department yesterday complaining of lower abdominal pain with negative abdominal CT, negative serum , no evidence of bladder infection, pyelonephritis, kidney stone or hydronephrosis. Was better after fluids and small dose of narcotic. Once the narcotic wore off she began vomiting has continued to vomit all night is now more orthostatic and the pain is focused on the upper abdomen. She denies fevers, does not smoke marijuana or tobacco. She has not noticed blood in her emesis. She presents in acute pain, tachycardic, poor overall perfusion and obviously dehydrated from the persistent vomiting. Related Data Home Medications Medication Instructions Recorded Confirmed cetirizine 10 mg tablet (Zyrtec) 10 mg PO DAILY 07/23/22 12/21/22 Previous Rx's Medication Instructions Recorded clobetasol 0.05 % topical ointment See Rx Instructions .Route 06/11/19 .COMPLEX #30 grams estradiol 0.01% (0.1 mg/gram) See Rx Instructions .Route 08/17/21 vaginal cream .COMPLEX #42.5 grams alprazolam 1 mg tablet 1 mg PO BID-TID PRN anxiety #120 08/09/22 tabs Allergies Allergy/AdvReac Type Severity Reaction Status Date / Time hydromorphone [HYDROMORPHONE] AdvReac Severe severe Verified 12/21/22 08:34 vomiting and dizziness levothyroxine AdvReac Intermediate Bloating Verified 12/21/22 08:34 amoxicillin [From AUGMENTIN] AdvReac Mild vomiting Verified 12/21/22 08:34 ciprofloxacin [From CIPRO] AdvReac Mild vomiting Verified 12/21/22 08:34 clavulanic acid AdvReac Mild vomiting Verified 12/21/22 08:34 [From AUGMENTIN] favian [FAVIAN] AdvReac Mild vomiting Verified 12/21/22 08:34 papaya [PAPAYA] AdvReac Mild vomiting Verified 12/21/22 08:34 tramadol [TRAMADOL] AdvReac Mild vomiting Verified 12/21/22 08:34 Review of Systems Review of Systems Narrative: Pertinent positive and negative findings as per HPI Patient History Medical History Chronic seasonal allergic rhinitis Alcohol abuse Irregular periods/menstrual cycles Moderate mixed hyperlipidemia not requiring statin therapy Borderline hypothyroidism Alopecia Lichen sclerosus et atrophicus of the vulva Depression Anxiety GERD (gastroesophageal reflux disease) Surgical History History of nephrolithotomy with removal of calculi (2012) History of third molar tooth extraction (1998) Status post delivery (2008) Family History Mother Thyroid disease Father Heart valve disorder Social History household members: spouse and children Smoking Status: Former smoker alcohol intake: current Smoking Status: Former smoker Substance Use Type: does not use Exam Narrative Exam Narrative: General: Appears unwell, tachycardic. Able to give a complete and coherent history. HEENT: Dry mucous membranes, normal sclera with reactive pupils, Respiratory: Lungs are clear to auscultation, no wheezing no rales no rhonchi. Full and symmetrical air movement Cardiac: Tachycardic but otherwise Regular rate and rhythm no murmurs no bruits Abdomen: Soft, tender in the upper abdomen including epigastrium and right upper quadrant, there is no rebound or guarding. Hypoactive bowel tones, no flank pain Skin: Poor perfusion throughout Neurologic: Grossly neurologically intact with no obvious asymmetries or abnormalities Extremities: No trauma, well perfused Psych: Cooperative, appropriate insight and affect Initial Vital Signs Initial Vital Signs: Vital Signs Pulse Rate 118 H 12/21/22 08:17 Respiratory Rate 27 H 12/21/22 08:17 Pulse Oximetry 99 12/21/22 08:17 Course Orders Ordered: ED Orders 12/21/22 08:21 US abdomen limited Stat 12/21/22 08:40 Complete Blood Count AUTO DIFF Stat Comprehensive Metabolic Panel Stat Ketones (Beta-Hydroxybutyrate) Stat Lipase Stat Respiratory Panel (Film Array) Stat 12/21/22 10:10 Basic Metabolic Panel Q4H 12/21/22 10:12 VBG [Venous Blood Gas] Stat 12/21/22 10:14 CT Abdomen Pancreatic Protocol Stat 12/21/22 10:30 Arterial Blood Gas Stat 12/21/22 10:39 Urine Microscopic Stat 12/21/22 14:35 Basic Metabolic Panel Q4H 12/21/22 18:30 Basic Metabolic Panel Q4H Acetaminophen (Acetaminophen 325 Mg Tablet) 650 mg PO Q6H PRN PRN Reason: Fever/Mild Pain (1-3) INSULIN DRIP PREMIX (Myxredlin Drip Premix) 100 unit in 100 mls @ 4.672 mls/hr IV TITRATE YRIS; Protocol Last Admin: 12/21/22 12:09 Dose: 0.1 unit/kg/hr, 4.672 mls/hr Documented By: ASHLEY Co-signed By: JEREMY Dextrose/Sodium Chloride (Dextrose 5%-0.45% Ns) 1,000 mls @ 70 mls/hr IV CONT YRIS Last Admin: 12/21/22 12:09 Dose: 70 mls/hr Documented By: ASHLEY Loratadine (Loratadine 10 Mg Tablet) 10 mg PO DAILY YRIS Lorazepam (Lorazepam 2 Mg/Ml Inj) 0.5 mg IV Q6HR PRN PRN Reason: Anxiety Melatonin (Melatonin 3 Mg Tablet) 6 mg PO BEDTIME PRN PRN Reason: Insomnia Metoclopramide HCl (Metoclopramide 10 Mg/2 Ml Inj) 10 mg IV Q6HR PRN PRN Reason: Nausea And Vomiting Morphine Sulfate (Morphine 2 Mg/Ml Inj) 2 mg IV Q3HR PRN PRN Reason: Pain, Moderate (4-6) Last Admin: 12/21/22 15:07 Dose: 2 mg Documented By: NERIS Naloxone HCl (Naloxone 0.4 Mg/Ml Vial) 0.2 mg IV Q2MIN PRN PRN Reason: Opiate Reversal Ondansetron HCl (Ondansetron 4 Mg/2 Ml Inj) 4 mg IV Q4HR PRN PRN Reason: Nausea And Vomiting Last Admin: 12/21/22 13:11 Dose: 4 mg Documented By: JEREMY Ondansetron HCl (Ondansetron 4 Mg/2 Ml Inj) 4 mg IV Q4HR PRN PRN Reason: Nausea And Vomiting Polyethylene Glycol (Polyethylene Glycol 3350 17 Gm Powd.Pack) 17 gm PO DAILY PRN PRN Reason: Constipation Sennosides (Sennosides 8.6 Mg Tablet) 8.6 mg PO BID PRN PRN Reason: Constipation Discontinued Medications Hydromorphone HCl (Hydromorphone 0.5 Mg Inj) 0.5 mg IV Q15MIN PRN PRN Reason: Pain, Stop: 12/21/22 13:10 Last Admin: 12/21/22 11:13 Dose: 0.5 mg Documented By: ASHLEY Sodium Chloride (Normal Saline 0.9%) 1,000 mls @ 1,000 mls/hr IV BOLUS ONE Stop: 12/21/22 09:17 Last Infusion: 12/21/22 11:02 Dose: Infused Documented By: Admin: 12/21/22 08:51 Dose: 1,000 mls/hr Documented By: ASHLEY Sodium Chloride (Normal Saline 0.9%) 1,000 mls @ 1,000 mls/hr IV BOLUS ONE Stop: 12/21/22 10:55 Last Infusion: 12/21/22 12:13 Dose: Infused Documented By: Admin: 12/21/22 10:58 Dose: 1,000 mls/hr Documented By: JEREMY Ondansetron HCl (Ondansetron 4 Mg/2 Ml Inj) 4 mg IV NOW ONE Stop: 12/21/22 08:19 Last Admin: 12/21/22 08:51 Dose: 4 mg Documented By: ASHLEY Pantoprazole Sodium (Pantoprazole 40 Mg Vial) 40 mg IV NOW ONE Stop: 12/21/22 11:15 Last Admin: 12/21/22 11:50 Dose: 40 mg Documented By: ASHLEY Vital Signs Vital signs: Vital Signs - 8 hr 12/21/22 08:17 12/21/22 08:21 12/21/22 08:30 Temperature 98.1 F Pulse Rate 118 H 120 H 118 H Respiratory Rate 27 H 22 26 H Blood Pressure 119/76 Pulse Oximetry 99 100 99 Oxygen Delivery Method Room Air 12/21/22 08:34 12/21/22 08:34 12/21/22 09:00 Temperature Pulse Rate 112 H 113 H Respiratory Rate 23 25 H Blood Pressure 119/76 Pulse Oximetry 98 99 Oxygen Delivery Method 12/21/22 09:30 12/21/22 10:00 12/21/22 10:04 Temperature Pulse Rate 112 H 102 H Respiratory Rate 30 H 25 H Blood Pressure 121/79 Pulse Oximetry 100 100 Oxygen Delivery Method 12/21/22 10:04 12/21/22 10:33 12/21/22 10:57 Temperature Pulse Rate 102 H 109 H Respiratory Rate 24 Blood Pressure 113/74 Pulse Oximetry 100 94 Oxygen Delivery Method Room Air 12/21/22 10:57 12/21/22 11:00 12/21/22 11:00 Temperature Pulse Rate 114 H 107 H Respiratory Rate 26 H 26 H Blood Pressure 121/80 Pulse Oximetry 98 100 Oxygen Delivery Method 12/21/22 11:30 12/21/22 11:48 12/21/22 11:48 Temperature Pulse Rate 113 H 116 H Respiratory Rate 23 23 Blood Pressure 108/70 Pulse Oximetry 100 100 Oxygen Delivery Method 12/21/22 12:00 12/21/22 12:00 12/21/22 12:30 Temperature Pulse Rate 109 H Respiratory Rate 22 Blood Pressure 107/71 114/80 Pulse Oximetry 100 Oxygen Delivery Method 12/21/22 12:30 12/21/22 13:00 12/21/22 13:00 Temperature Pulse Rate 109 H 112 H Respiratory Rate 22 24 Blood Pressure 107/72 Pulse Oximetry 99 99 Oxygen Delivery Method Room Air Medical Decision Making Lab Data 12/21/22 08:40 12/21/22 14:35 Labs: Lab Results 12/21/22 12/21/22 12/21/22 Range/Units 08:40 10:10 10:12 WBC 8.8 (4.5-11.0) X10^3/uL RBC 4.34 (4.0-5.2) X10^6/uL Hgb 14.1 (12.0-16.0) g/dL Hct 41.6 (36-46) % MCV 95.9 (80-100) fL MCH 32.4 (26-34) PG MCHC 33.8 (30-36) % RDW 13.1 (11.6-14.8) % Plt Count 276 (150-400) X10^3/uL Neut % (Auto) 82.3 H (50-75) % Lymph % (Auto) 7.6 L (25-40) % Dickey % (Auto) 9.4 (3-14) % Eos % (Auto) 0.4 L (2-4) % Baso % (Auto) 0.3 (0-2) % Neut # (Auto) 7300 H (3731-7354) /uL Lymph # (Auto) 700 L (3146-3619) /uL Dickey # (Auto) 800 (0-900) /uL Eos # (Auto) 0 (0-450) /uL Baso # (Auto) 0 (0-100) /uL VBG pH 7.08 L* (7.33-7.43) VBG pCO2 < 18.0 L (45-50) mmHg VBG pO2 39 (35-45) mmHg VBG HCO3 5 L (24-28) mmol/L VBG Total CO2 6 L (24-29) mmol/L VBG O2 Saturation 56 L (70-75) % VBG Base Excess -25.0 L (0-4) mmol/L Sodium 135 L 136 L (137-145) mmol/L Potassium 4.3 4.0 (3.4-5.1) mmol/L Chloride 106 111 H (98-107) mmol/L Carbon Dioxide < 5 L* < 5 L* (22-32) mmol/L BUN 6 L 5 L (7-17) mg/dL Creatinine 0.74 0.57 (0.52-1.04) mg/dL Estimated GFR > 60 > 60 (>60) mL/min BUN/Creatinine Ratio 8.1 8.8 (6-22) Glucose 308 H 272 H (70-100) mg/dL Hemoglobin A1c 10.4 H (4.0-6.0) % Calcium 10.6 H 9.3 (8.4-10.2) mg/dL Magnesium 1.8 (1.6-2.3) mg/dL Total Bilirubin 0.5 (0.2-1.3) mg/dL AST 26 (14-36) IU/L ALT 29 (<35) IU/L Alkaline Phosphatase 98 (38-126) U/L Total Protein 7.5 (6.3-8.2) g/dL Albumin 4.2 (3.5-5.0) g/dL Globulin 3.3 (1.7-4.1) g/dL Albumin/Globulin Ratio 1.3 (1.0-2.8) Lipase 889 H D (23-300) U/L TSH 1.08 (0.47-4.68) uIU/mL Urine RBC (0-5/HPF) Urine WBC (0-5/HPF) Ur Squamous Epith Cells (0-5/HPF) Amorphous Sediment Urine Bacteria (None) Ur Culture Indicated? Ketones 10.98 H (<0.27) mmol/L Chlamy pneumoniae PCR Not detected (Not Detect) Adenovirus (PCR) Not detected (Not Detect) B.parapertussis DNA PCR Not detected (Not Detecte) Coronavirus OC43 (PCR) Not detected (Not Detect) Coronavirus HKU1 (PCR) Not detected (Not Detect) Coronavirus 229E (PCR) Not detected (Not Detect) SARS-CoV-2 (PCR) Not detected (Not Detecte) Coronavirus NL63 (PCR) Not detected (Not Detect) Human Metapneumovir PCR Not detected (Not Detect) Influenza A (PCR) Not detected (Not Detect) Influenza Type B (PCR) Not detected (Not Detect) M. pneumoniae (PCR) Not detected (Not Detect) Parainfluenza 1 (PCR) Not detected (Not Detect) Parainfluenza 2 (PCR) Not detected (Not Detect) Parainfluenza 3 (PCR) Not detected (Not Detect) Parainfluenza 4 (PCR) Not detected (Not Detect) RSV (PCR) Not detected (Not Detect) Entero/Rhino (PCR) Not detected (Not Detect) 12/21/22 Range/Units 10:39 WBC (4.5-11.0) X10^3/uL RBC (4.0-5.2) X10^6/uL Hgb (12.0-16.0) g/dL Hct (36-46) % MCV (80-100) fL MCH (26-34) PG MCHC (30-36) % RDW (11.6-14.8) % Plt Count (150-400) X10^3/uL Neut % (Auto) (50-75) % Lymph % (Auto) (25-40) % Dickey % (Auto) (3-14) % Eos % (Auto) (2-4) % Baso % (Auto) (0-2) % Neut # (Auto) (3341-4287) /uL Lymph # (Auto) (7694-6258) /uL Dickey # (Auto) (0-900) /uL Eos # (Auto) (0-450) /uL Baso # (Auto) (0-100) /uL VBG pH (7.33-7.43) VBG pCO2 (45-50) mmHg VBG pO2 (35-45) mmHg VBG HCO3 (24-28) mmol/L VBG Total CO2 (24-29) mmol/L VBG O2 Saturation (70-75) % VBG Base Excess (0-4) mmol/L Sodium (137-145) mmol/L Potassium (3.4-5.1) mmol/L Chloride (98-107) mmol/L Carbon Dioxide (22-32) mmol/L BUN (7-17) mg/dL Creatinine (0.52-1.04) mg/dL Estimated GFR (>60) mL/min BUN/Creatinine Ratio (6-22) Glucose (70-100) mg/dL Hemoglobin A1c (4.0-6.0) % Calcium (8.4-10.2) mg/dL Magnesium (1.6-2.3) mg/dL Total Bilirubin (0.2-1.3) mg/dL AST (14-36) IU/L ALT (<35) IU/L Alkaline Phosphatase (38-126) U/L Total Protein (6.3-8.2) g/dL Albumin (3.5-5.0) g/dL Globulin (1.7-4.1) g/dL Albumin/Globulin Ratio (1.0-2.8) Lipase (23-300) U/L TSH (0.47-4.68) uIU/mL Urine RBC 1-5/hpf (0-5/HPF) Urine WBC None seen (0-5/HPF) Ur Squamous Epith Cells None seen (0-5/HPF) Amorphous Sediment 1+ Urine Bacteria None seen (None) Ur Culture Indicated? Cult not indicated Ketones (<0.27) mmol/L Chlamy pneumoniae PCR (Not Detect) Adenovirus (PCR) (Not Detect) B.parapertussis DNA PCR (Not Detecte) Coronavirus OC43 (PCR) (Not Detect) Coronavirus HKU1 (PCR) (Not Detect) Coronavirus 229E (PCR) (Not Detect) SARS-CoV-2 (PCR) (Not Detecte) Coronavirus NL63 (PCR) (Not Detect) Human Metapneumovir PCR (Not Detect) Influenza A (PCR) (Not Detect) Influenza Type B (PCR) (Not Detect) M. pneumoniae (PCR) (Not Detect) Parainfluenza 1 (PCR) (Not Detect) Parainfluenza 2 (PCR) (Not Detect) Parainfluenza 3 (PCR) (Not Detect) Parainfluenza 4 (PCR) (Not Detect) RSV (PCR) (Not Detect) Entero/Rhino (PCR) (Not Detect) Point of Care Testing Test Results Negative Glucose POC 281 Urine Dip Bedside Urine Glucose 1000 mg/dl Bedside Urine Bilirubin - Negative Bedside Urine Ketone +++ 80 Urine Specific Aguilar 1.030 Bedside Urine Occult Blood +++ Bedside Urine pH 5.5 Bedside Urine Protein + 30 Bedside Urine Urobilinogen - Negative Bedside Urine Nitrite - Negative Bedside Urine Leukocytes - Negative Esterase Point of care testing: Point of Care Testing Test Results Negative Glucose POC 281 Urine Dip Bedside Urine Glucose 1000 mg/dl Bedside Urine Bilirubin - Negative Bedside Urine Ketone +++ 80 Urine Specific Aguilar 1.030 Bedside Urine Occult Blood +++ Bedside Urine pH 5.5 Bedside Urine Protein + 30 Bedside Urine Urobilinogen - Negative Bedside Urine Nitrite - Negative Bedside Urine Leukocytes - Negative Esterase MDM Narrative Medical decision making narrative: CC: Persistent abdominal pain, this is an acute issue uncertain prognosis Complicating co-morbidities: Patient was seen yesterday with lower abdominal pain CT scan was unremarkable lab work was reassuring she felt better after fluids and Zofran. After discharge symptoms worsened she is been vomiting all night clinically significantly dehydrated and now with significant upper abdominal pain yet still no rebound or guarding Data collected from: patient, significant other Medical records reviewed: Entire workup including ER note from yesterday for similar problem is reviewed Differential considered: Cholelithiasis, cholecystitis, retained common duct stone, pancreatitis, gastritis given workup from yesterday I do not suspect pyelonephritis, bowel obstruction, kidney stone, or complications. With no fever, no elevated or significantly decreased blood count yesterday and no other signs of infection, I do not suspect an acute infectious etiology nor sepsis at this time Exam documented above, pertinent findings include: Tender in the upper abdomen without rebound or guarding. Significant dehydration Lab Test results independently reviewed as above. Pertinent findings: CBC is unremarkable Chemistries show carbon dioxide less than 5 which gives her an anion gap of 24, moderate change from yesterday. Glucose is elevated at 308 without a diagnosis of diabetes. Calcium is increased to 10.6. Lipase is now elevated at almost 900. Also a change from yesterday Positive ketones, pH of 7.0 9 on venous blood gas Viral panel is unremarkable Independently reviewed EKG sinus tachycardia at 1:20 a.m.. Normal intervals, normal axis. No acute ischemic changes Imaging studies independently reviewed: CT KUB scan from yesterday is independently reviewed and discussed with on-call Radiology today. In retrospect no obvious pancreatic abnormalities. Consultations: Ultrasound preliminary results reviewed with tech. She is had the study was technically difficult, she did not see obvious gallbladder abnormalities however she was concerned that there may be a mass at the head of the pancreas. Discussion with Radiology, will go ahead and order CT scan of the abdomen and pelvis with contrast, pancreatic protocol. Treatments: Fluids, insulin drip Re-evaluations: 10am labs are reviewed. Possibility of DKA with severe abdominal pain is entertained. She is not a known diabetic however blood sugars are significantly elevated. Lipase is increasing anion gap is currently 24. Will add venous blood gas and ketones as well as another L of fluid and 2nd CT scan. Patient is updated of concerns and findings 1015 findings reviewed with patient. Now that pain isn't quite as severe breathing pattern actually could well be Kussmaul type breathing. Discussion: 42-year-old woman presents with abdominal pain labs show that she is in DKA with a pH of 7.09, positive ketones, an anion gap of 24. I suspect that her abdominal pain is secondary to her acute DKA. She has never been diagnosed with diabetes. CT scan of the abdomen did not show any significant findings again. On further questioning she notes that she has been increasingly hungry, eating more but losing weight. She denies polydipsia or polyuria. She is been started on an insulin drip in the emergency department. Will be admitted to the intensive care unit for further treatment. Critical Care Time Critical Care Time Critical Care Time: Yes Total Critical Care Time: 37 Attestation: Critical care time is separate from other billable procedures. There is a high probability of a significant, sudden or life-threatening deterioration that requires my full and direct attention, intervention and personal management. This critical care time includes consultation with family and other consulting doctors, review of records, and interpretation of data from labs, EKGs and imaging as well as managements of DKA, new diagnosis of diabetes Discharge Plan Departure Patient Disposition: Admitted As Inpatient Clinical Impression: DKA (diabetic ketoacidosis) Qualifiers: Diabetes mellitus type: type 1 Diabetes mellitus complication detail: without coma Qualified Code(s): E10.10 - Type 1 diabetes mellitus with ketoacidosis without coma Admit Date/Time: 12/21/22 13:00 Admit Provider: Don Hernandez
[2022-12-21] MEDS: ONDANSETRON 4 MG/2 ML INJ IV ×3 (08:51→21:21)
[2022-12-21] MEDS: SODIUM CHLORIDE 0.9% 1,000 ML 1000 ML IV ×2 (08:51→10:58)
[2022-12-21 08:52] LABS: Add Manual Diff / Slide Review NO; Basophils Absolute Auto 0 /uL (0-100); Basophils Percent Auto 0.3 % (0-2); Eosinophils Absolute Auto 0 /uL (0-450); Eosinophils Percent Auto 0.4 % (2-4); Hematocrit 41.6 % (36-46); Hemoglobin 14.1 g/dL (12.0-16.0); Lymphocytes Absolute Auto 700 /uL (1100-4500); Lymphocytes Percent Auto 7.6 % (25-40); Mean Corpuscular HGB Conc 33.8 % (30-36); Mean Corpuscular Hemoglobin 32.4 PG (26-34); Mean Corpuscular Volume 95.9 fL (80-100); Monocytes Absolute Auto 800 /uL (0-900); Monocytes Percent Auto 9.4 % (3-14); Neutrophils Absolute Auto 7300 /uL (1500-7000); Neutrophils Percent Auto 82.3 % (50-75); Platelet Count 276 X10^3/uL (150-400); Red Blood Cell Count 4.34 X10^6/uL (4.0-5.2); Red Cell Distribution Width 13.1 % (11.6-14.8); White Blood Cell Count 8.8 X10^3/uL (4.5-11.0)
[2022-12-21 09:10] LABS: Alanine Aminotransferase 29 IU/L (<35); Albumin 4.2 g/dL (3.5-5.0); Albumin Globulin Ratio 1.3 (1.0-2.8); Alkaline Phosphatase 98 U/L (38-126); Aspartate Aminotransferase 26 IU/L (14-36); BUN Creatinine Ratio 8.1 (6-22); Bilirubin Total 0.5 mg/dL (0.2-1.3); Blood Urea Nitrogen 6 mg/dL (7-17); Calcium 10.6 mg/dL (8.4-10.2); Chloride 106 mmol/L (98-107); Estimated Glomerular Filt Rate > 60 mL/min (>60); Globulin 3.3 g/dL (1.7-4.1); Glucose 308 mg/dL (70-100); HEMOLYSIS < 15 (0-50); Lipase 889 U/L (23-300); Potassium 4.3 mmol/L (3.4-5.1); Sodium 135 mmol/L (137-145); Total Protein 7.5 g/dL (6.3-8.2)
[2022-12-21 09:22] LABS: Carbon Dioxide < 5 mmol/L (22-32)
[2022-12-21 10:12] LABS: Adenovirus Not Detected (Not Detect); B. parapertussis Not Detected (Not Detecte); Bordetella pertussis Not Detected (Not Detect); Chlamydophila pneumoniae Not Detected (Not Detect); Coronavirus 229E Not Detected (Not Detect); Coronavirus HKU1 Not Detected (Not Detect); Coronavirus NL 63 Not Detected (Not Detect); Coronavirus OC43 Not Detected (Not Detect); Human Metapneumovirus Not Detected (Not Detect); Human Rhinovirus/Enterovirus Not Detected (Not Detect); Influenza A(No subj detected) Not Detected (Not Detect); Influenza B Not Detected (Not Detect); Mycoplasma pneumoniae Not Detected (Not Detect); Parainfluenza Virus 1 Not Detected (Not Detect); Parainfluenza Virus 2 Not Detected (Not Detect); Parainfluenza Virus 3 Not Detected (Not Detect); Parainfluenza Virus 4 Not Detected (Not Detect); Respiratory Syncytial Virus Not Detected (Not Detect); SARS- CoV-2 Not Detected (Not Detecte)
--- NOTE | 2022-12-21 10:14 | DI.CT.S_ITS ---
PROCEDURE: CT ABDOMEN PANCREATIC PROTOCOL INDICATIONS: persistent abdominal pain, ? abnormal Ultrasound TECHNIQUE: After the administration of intravenous contrast, 3 mm thick pancreatic-phase images acquired from the diaphragm to the iliac crests. 3 mm thick coronal and sagittal reformats were performed. For radiation dose reduction, the following was used: automated exposure control, adjustment of mA and/or kV according to patient size. COMPARISON: [facility], CT, ABDOMEN/PELVIS WITH CONTRAST, 03/11/2013, 11:26. [facility], US, US ABDOMEN LIMITED, 12/21/2022, 9:15. [facility], CT, CT KIDNEY URETER BLADDER (KUB), 12/20/2022, 7:58. FINDINGS: Image quality: Excellent. Lung bases: Lung bases are clear. Heart size is normal. Pancreas: In this patient with this given history, scrutiny is given to the pancreatic head. No definite masses are seen. The pancreas enhances uniformly. No pancreatic ductal dilatation is seen. There is a small amount of inflammatory change seen adjacent to the pancreas. Other solid organs: Diffuse fatty liver infiltration is noted. Gallbladder wall is not thickened. Biliary system is non dilated. Spleen is normal in size and enhancement. No adrenal nodules. Kidneys are normal in size and enhancement, without hydronephrosis. Peritoneum and bowel: The duodenum adjacent to the pancreas is abnormal, with tortuosity and 2 diverticula. There is a small amount of regional inflammatory change. The proximal small bowel is otherwise unremarkable. The stomach is moderately distended with fluid. No significant colonic abnormality is seen. Nodes and vessels: No retroperitoneal or mesenteric adenopathy by size criteria. Aorta and inferior vena cava are normal in size. Bones: No suspicious bony lesions. No vertebral body compression fractures. Mild levoconvex scoliotic curvature is noted. Miscellaneous: No ventral hernias. IMPRESSION: A pancreatic head mass is not confirmed on this CT study. 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 This patient has a tortuous duodenum, with 2 diverticula seen. There is moderate fluid distention of the stomach. A mild degree of inflammatory change can be seen adjacent to the pancreas and within the right upper quadrant. Differential diagnosis includes pancreatitis, duodenal diverticular disease, and peptic ulcer disease. Additional findings: Fatty liver infiltration Dictated by: Wilman Harman M.D. on 12/21/2022 at 10:05 Transcribed by: CAROLYN on 12/21/2022 at 10:11 Approved by: Wilman Harman M.D. on 12/21/2022 at 10:37
[2022-12-21 10:17] LABS: Ketones (Beta-Hydroxybutyrate) 10.98 mmol/L (<0.27)
[2022-12-21 10:27] LABS: pH VBG 7.08 (7.33-7.43)
[2022-12-21 10:28] LABS: HCO3 VBG 5 mmol/L (24-28); PCO2 VBG < 18.0 mmHg (45-50); PO2 VBG 39 mmHg (35-45); Total CO2 VBG 6 mmol/L (24-29)
[2022-12-21 10:29] LABS: Oxygen Saturation VBG 56 % (70-75)
[2022-12-21 10:45] LABS: BUN Creatinine Ratio 8.8 (6-22); Blood Urea Nitrogen 5 mg/dL (7-17); Calcium 9.3 mg/dL (8.4-10.2); Chloride 111 mmol/L (98-107); Estimated Glomerular Filt Rate > 60 mL/min (>60); Glucose 272 mg/dL (70-100); HEMOLYSIS 27 (0-50); Sodium 136 mmol/L (137-145)
[2022-12-21 10:46] LABS: Carbon Dioxide < 5 mmol/L (22-32)
[2022-12-21] MEDS: HYDROMORPHONE 0.5 MG INJ IV (11:13)
[2022-12-21 11:18] LABS: Amorphous Sediment Urine 1+; Bacteria Urine None Seen; Culture Indicated Urine Cult Not Indicated; RBC Urine 1-5/HPF (0-5/HPF); Squamous Epithelial Cell Urine None Seen (0-5/HPF); WBC Urine None Seen (0-5/HPF)
[2022-12-21] MEDS: PANTOPRAZOLE 40 MG VIAL IV ×3 (11:50→20:59)
[2022-12-21] MEDS: INSULIN DRIP PREMIX 100 UNIT/100 ML PLAST..BAG IV (12:09)
[2022-12-21] MEDS: DEXTROSE 5%-0.45% NS 1,000 ML 70 ML IV (12:09)
[2022-12-21 13:31] LABS: Magnesium 1.8 mg/dL (1.6-2.3)
[2022-12-21 13:34] LABS: Hemoglobin A1C% w Est Avg Glu 10.4 % (4.0-6.0)
--- NOTE | 2022-12-21 14:02 | PM.HP.1 ---
History of Present Illness History of Present Illness Date Patient Seen: 12/21/22 Time Patient Seen: 16:34 Chief complaint: poss hernia, increased pain t-1 Narrative: Emmy Neri is a 42yo F with PMH of alcohol use, depression, anxiety, lichen sclerosis, and GERD who presents with acute abd pain and found to be in DKA with pancreatitis. Patient came to the ED with LQ abd pain yesterday and was sent home after nothing was found. Then around 3:30pm she developed acute onset epigastric abd pain with intractable NV. Came back to ED where CT abd showed some mild peripancreatic edema and lipase 889. Also with gap of 20 with bicarb 7, ketones 10.98 consistent with DKA. A1c 10.5%. Patient has no diabetes history. She drinks 3 hard seltzers most days but will skip a day now and then. No withdrawal history. She notes current stabbing epigastric pain radiating to her back. No CP, SOB, dizziness, diarrhea, or dysuria. [facility] Medical History Chronic seasonal allergic rhinitis Alcohol abuse Irregular periods/menstrual cycles Moderate mixed hyperlipidemia not requiring statin therapy Borderline hypothyroidism Alopecia Lichen sclerosus et atrophicus of the vulva Depression Anxiety GERD (gastroesophageal reflux disease) Surgical History History of nephrolithotomy with removal of calculi (2012) History of third molar tooth extraction (1998) Status post delivery (2008) Family History Mother Thyroid disease Father Heart valve disorder Social History household members: spouse and children Smoking Status: Former smoker alcohol intake: current Meds Home Medications and Allergies Home Medications Medication Instructions Recorded Confirmed Type clobetasol 0.05 % topical ointment See Rx Instructions .Route 06/11/19 10/16/22 Rx .COMPLEX #30 grams estradiol 0.01% (0.1 mg/gram) See Rx Instructions .Route 08/17/21 10/16/22 Rx vaginal cream .COMPLEX #42.5 grams cetirizine 10 mg tablet (Zyrtec) 10 mg PO DAILY 07/23/22 12/21/22 History alprazolam 1 mg tablet 1 mg PO BID-TID PRN anxiety #120 08/09/22 12/21/22 Rx tabs Allergies Allergy/AdvReac Type Severity Reaction Status Date / Time hydromorphone [HYDROMORPHONE] AdvReac Severe severe Verified 12/21/22 08:34 vomiting and dizziness levothyroxine AdvReac Intermediate Bloating Verified 12/21/22 08:34 amoxicillin [From AUGMENTIN] AdvReac Mild vomiting Verified 12/21/22 08:34 ciprofloxacin [From CIPRO] AdvReac Mild vomiting Verified 12/21/22 08:34 clavulanic acid AdvReac Mild vomiting Verified 12/21/22 08:34 [From AUGMENTIN] favian [FAVIAN] AdvReac Mild vomiting Verified 12/21/22 08:34 papaya [PAPAYA] AdvReac Mild vomiting Verified 12/21/22 08:34 tramadol [TRAMADOL] AdvReac Mild vomiting Verified 12/21/22 08:34 Review of Systems Review of Systems Narrative: All other systems reviewed with the patient and are negative unless otherwise stated. Exam Vital Signs (past 8 hours): - 12/21/22 08:17 12/21/22 08:21 12/21/22 08:30 Temperature 98.1 F Pulse Rate 118 H 120 H 118 H Respiratory Rate 27 H 22 26 H Blood Pressure 119/76 Pulse Oximetry 99 100 99 Oxygen Delivery Method Room Air 12/21/22 08:34 12/21/22 08:34 12/21/22 09:00 Temperature Pulse Rate 112 H 113 H Respiratory Rate 23 25 H Blood Pressure 119/76 Pulse Oximetry 98 99 Oxygen Delivery Method 12/21/22 09:30 12/21/22 10:00 12/21/22 10:04 Temperature Pulse Rate 112 H 102 H Respiratory Rate 30 H 25 H Blood Pressure 121/79 Pulse Oximetry 100 100 Oxygen Delivery Method 12/21/22 10:04 12/21/22 10:33 12/21/22 10:57 Temperature Pulse Rate 102 H 109 H Respiratory Rate 24 Blood Pressure 113/74 Pulse Oximetry 100 94 Oxygen Delivery Method 12/21/22 10:57 12/21/22 11:00 12/21/22 11:00 Temperature Pulse Rate 114 H 107 H Respiratory Rate 26 H 26 H Blood Pressure 121/80 Pulse Oximetry 98 100 Oxygen Delivery Method 12/21/22 11:30 12/21/22 11:48 12/21/22 11:48 Temperature Pulse Rate 113 H 116 H Respiratory Rate 23 23 Blood Pressure 108/70 Pulse Oximetry 100 100 Oxygen Delivery Method 12/21/22 12:00 12/21/22 12:00 12/21/22 12:30 Temperature Pulse Rate 109 H Respiratory Rate 22 Blood Pressure 107/71 114/80 Pulse Oximetry 100 Oxygen Delivery Method 12/21/22 12:30 12/21/22 13:00 12/21/22 13:00 Temperature Pulse Rate 109 H 112 H Respiratory Rate 22 24 Blood Pressure 107/72 Pulse Oximetry 99 99 Oxygen Delivery Method Room Air 12/21/22 13:30 12/21/22 13:30 Temperature Pulse Rate 109 H Respiratory Rate 19 Blood Pressure 98/70 Pulse Oximetry 99 Oxygen Delivery Method Oxygen Delivery Method Room Air Narrative Exam Narrative: GEN: mild distress due to pain HEENT: moist mucous membranes, PERRL NECK: trachea midline, no JVD CV: regular rate and rhythm, no murmurs PULM: clear bilaterally ABD: guarding, epigastric tenderness, mildly distended, no organomegaly EXT: warm and well perfused with no edema NEURO: awake, alert, oriented, no focal deficits Objective Labs 12/21/22 08:40 12/21/22 14:35 Labs: Laboratory Results - last 24 hr 12/21/22 12/21/22 12/21/22 08:40 10:10 10:12 WBC 8.8 RBC 4.34 Hgb 14.1 Hct 41.6 MCV 95.9 MCH 32.4 MCHC 33.8 RDW 13.1 Plt Count 276 Neut % (Auto) 82.3 H Lymph % (Auto) 7.6 L Hancock % (Auto) 9.4 Eos % (Auto) 0.4 L Baso % (Auto) 0.3 Neut # (Auto) 7300 H Lymph # (Auto) 700 L Hancock # (Auto) 800 Eos # (Auto) 0 Baso # (Auto) 0 VBG pH 7.08 L* VBG pCO2 < 18.0 L VBG pO2 39 VBG HCO3 5 L VBG Total CO2 6 L VBG O2 Saturation 56 L VBG Base Excess -25.0 L Sodium 135 L 136 L Potassium 4.3 4.0 Chloride 106 111 H Carbon Dioxide < 5 L* < 5 L* BUN 6 L 5 L Creatinine 0.74 0.57 Estimated GFR > 60 > 60 BUN/Creatinine Ratio 8.1 8.8 Glucose 308 H 272 H Hemoglobin A1c 10.4 H Calcium 10.6 H 9.3 Magnesium 1.8 Total Bilirubin 0.5 AST 26 ALT 29 Alkaline Phosphatase 98 Total Protein 7.5 Albumin 4.2 Globulin 3.3 Albumin/Globulin Ratio 1.3 Lipase 889 H D Urine RBC Urine WBC Ur Squamous Epith Cells Amorphous Sediment Urine Bacteria Ur Culture Indicated? Ketones 10.98 H Chlamy pneumoniae PCR Not detected Adenovirus (PCR) Not detected B.parapertussis DNA PCR Not detected Coronavirus OC43 (PCR) Not detected Coronavirus HKU1 (PCR) Not detected Coronavirus 229E (PCR) Not detected SARS-CoV-2 (PCR) Not detected Coronavirus NL63 (PCR) Not detected Human Metapneumovir PCR Not detected Influenza A (PCR) Not detected Influenza Type B (PCR) Not detected M. pneumoniae (PCR) Not detected Parainfluenza 1 (PCR) Not detected Parainfluenza 2 (PCR) Not detected Parainfluenza 3 (PCR) Not detected Parainfluenza 4 (PCR) Not detected RSV (PCR) Not detected Entero/Rhino (PCR) Not detected 12/21/22 10:39 WBC RBC Hgb Hct MCV MCH MCHC RDW Plt Count Neut % (Auto) Lymph % (Auto) Hancock % (Auto) Eos % (Auto) Baso % (Auto) Neut # (Auto) Lymph # (Auto) Hancock # (Auto) Eos # (Auto) Baso # (Auto) VBG pH VBG pCO2 VBG pO2 VBG HCO3 VBG Total CO2 VBG O2 Saturation VBG Base Excess Sodium Potassium Chloride Carbon Dioxide BUN Creatinine Estimated GFR BUN/Creatinine Ratio Glucose Hemoglobin A1c Calcium Magnesium Total Bilirubin AST ALT Alkaline Phosphatase Total Protein Albumin Globulin Albumin/Globulin Ratio Lipase Urine RBC 1-5/hpf Urine WBC None seen Ur Squamous Epith Cells None seen Amorphous Sediment 1+ Urine Bacteria None seen Ur Culture Indicated? Cult not indicated Ketones Chlamy pneumoniae PCR Adenovirus (PCR) B.parapertussis DNA PCR Coronavirus OC43 (PCR) Coronavirus HKU1 (PCR) Coronavirus 229E (PCR) SARS-CoV-2 (PCR) Coronavirus NL63 (PCR) Human Metapneumovir PCR Influenza A (PCR) Influenza Type B (PCR) M. pneumoniae (PCR) Parainfluenza 1 (PCR) Parainfluenza 2 (PCR) Parainfluenza 3 (PCR) Parainfluenza 4 (PCR) RSV (PCR) Entero/Rhino (PCR) Assessment & Plan Assessment & Plan narrative: # acute DKA in setting of newly diagnosed DM1 -gap 20, bicarb 7, VBG pH 7.08, A1c 10.5% -no prior history of diabetes -insulin drip per protocol -q4h BMP's -will need outpatient endo referral from PCP for ongoing management # likely acute pancreatitis, cannot rule out PUD -epigastric pain, inflammation on CT around pancreas, lipase 889. Unclear etiology. Abd US negative for biliary pathology or gallstones. -morphine IV PRN -clear liquids, go to NPO if still having abd pain -gen surg consulted and discussed the case, will consider for possible EGD to rule out PUD given CT has mod distended stomach with fluids and severe epigastric pain -PPI IV BID -IVF # nausea and vomiting -due to pancreatitis and/or DKA -antiemetics PRN Code status is full code. DVT prophylaxis with SCDs. Proxy is spouse Quang. I have reviewed home meds and used all available resources to reconcile the home meds. Case discussed with ED physician/APC and patient will be admitted to the hospitalist service for further workup and management. This patient will be admitted as ICU and will require greater than 2 midnights of hospital time to treat acute DKA and pancreatitis.
[2022-12-21 14:04] LABS: TSH w/ Reflex to FT4 1.08 uIU/mL (0.47-4.68)
[2022-12-21 14:55] LABS: BUN Creatinine Ratio 7.4 (6-22); Blood Urea Nitrogen 4 mg/dL (7-17); Calcium 9.3 mg/dL (8.4-10.2); Chloride 111 mmol/L (98-107); Estimated Glomerular Filt Rate > 60 mL/min (>60); Glucose 214 mg/dL (70-100); HEMOLYSIS < 15 (0-50); Potassium 3.5 mmol/L (3.4-5.1); Sodium 136 mmol/L (137-145)
[2022-12-21 15:04] LABS: Carbon Dioxide 7 mmol/L (22-32)
[2022-12-21] MEDS: MORPHINE 2 MG/ML INJ IV ×4 (15:07→23:42)
[2022-12-21] MEDS: POTASSIUM CHLORIDE IN WATER 10 MEQ/100 ML PIGGYBACK 100 MEQ IV ×3 (17:00→23:16)
[2022-12-21 17:29] LABS: HDL Cholesterol 66 mg/dL (40-60)
[2022-12-21 17:34] LABS: MRSA (Nasal) PCR Not Detected (Not Detect)
[2022-12-21 17:37] LABS: Cholesterol 539 mg/dL (140-199); Triglycerides 1499 mg/dL (35-150)
[2022-12-21 19:05] LABS: BUN Creatinine Ratio 7.7 (6-22); Blood Urea Nitrogen 4 mg/dL (7-17); Calcium 9.3 mg/dL (8.4-10.2); Carbon Dioxide 10 mmol/L (22-32); Chloride 110 mmol/L (98-107); Estimated Glomerular Filt Rate > 60 mL/min (>60); Glucose 161 mg/dL (70-100); HEMOLYSIS < 15 (0-50); Potassium 3.4 mmol/L (3.4-5.1); Sodium 132 mmol/L (137-145)
[2022-12-21] MEDS: DEXTROSE 10 % IN WATER 1,000 ML 47.2 ML IV (21:21)
[2022-12-21 22:40] LABS: BUN Creatinine Ratio 8.7 (6-22); Blood Urea Nitrogen 4 mg/dL (7-17); Calcium 9.6 mg/dL (8.4-10.2); Carbon Dioxide 10 mmol/L (22-32); Chloride 110 mmol/L (98-107); Estimated Glomerular Filt Rate > 60 mL/min (>60); Glucose 144 mg/dL (70-100); HEMOLYSIS 30 (0-50); Potassium 2.9 mmol/L (3.4-5.1); Sodium 132 mmol/L (137-145)
[2022-12-22] VITALS (36 sets, daily range): BP systolic 88–117; BP diastolic 55–75; PULSE 84–106; RESP 10–20; TEMP 36.3–37.2; O2SAT 83–100
[2022-12-22] MEDS: POTASSIUM CHLORIDE IN WATER 10 MEQ/100 ML PIGGYBACK 100 MEQ IV ×3 (00:17→02:31)
[2022-12-22 02:32] LABS: Add Manual Diff / Slide Review NO; Basophils Absolute Auto 0 /uL (0-100); Basophils Percent Auto 0.4 % (0-2); Eosinophils Absolute Auto 100 /uL (0-450); Hematocrit 34.1 % (36-46); Hemoglobin 11.8 g/dL (12.0-16.0); Lymphocytes Absolute Auto 400 /uL (1100-4500); Mean Corpuscular HGB Conc 34.7 % (30-36); Mean Corpuscular Hemoglobin 32.9 PG (26-34); Mean Corpuscular Volume 94.8 fL (80-100); Monocytes Absolute Auto 700 /uL (0-900); Monocytes Percent Auto 10.5 % (3-14); Neutrophils Absolute Auto 5600 /uL (1500-7000); Neutrophils Percent Auto 82.1 % (50-75); Platelet Count 210 X10^3/uL (150-400); Red Cell Distribution Width 13.1 % (11.6-14.8); White Blood Cell Count 6.8 X10^3/uL (4.5-11.0)
[2022-12-22 02:33] LABS: Lipase 335 U/L (23-300)
[2022-12-22] MEDS: MORPHINE 2 MG/ML INJ IV ×6 (02:34→21:16)
[2022-12-22 02:35] LABS: BUN Creatinine Ratio 6.3 (6-22); Blood Urea Nitrogen 3 mg/dL (7-17); Calcium 9.5 mg/dL (8.4-10.2); Carbon Dioxide 13 mmol/L (22-32); Chloride 111 mmol/L (98-107); Estimated Glomerular Filt Rate > 60 mL/min (>60); Glucose 147 mg/dL (70-100); HEMOLYSIS 31 (0-50); Potassium 3.7 mmol/L (3.4-5.1); Sodium 132 mmol/L (137-145)
[2022-12-22 02:42] LABS: Triglycerides 656 mg/dL (35-150)
[2022-12-22] MEDS: DEXTROSE 5%-0.45% NS 1,000 ML 70 ML IV (05:55)
[2022-12-22 06:24] LABS: BUN Creatinine Ratio 6.5 (6-22); Blood Urea Nitrogen 3 mg/dL (7-17); Calcium 9.6 mg/dL (8.4-10.2); Carbon Dioxide 15 mmol/L (22-32); Chloride 107 mmol/L (98-107); Estimated Glomerular Filt Rate > 60 mL/min (>60); Glucose 168 mg/dL (70-100); HEMOLYSIS < 15 (0-50); Potassium 3.6 mmol/L (3.4-5.1); Sodium 132 mmol/L (137-145)
--- NOTE | 2022-12-22 09:16 | CM.DANOTE ---
Addendum entered by JUAN M Posada 12/23/22 13:12: ADD: According to Dr Hernandez, patient with new dx of diabetes and will likely discharge on lantus, with close follow up with PCP expected. Home no needs from this CM team still anticipated. JW Original Note: DCP Assessment Note: Patient is a 42yo F here following DKA/abdominal pain. PCP Bari Roberts and self pay DYE HOUSE WORKER reviewed EMR. Per RN, patient is still improving but in a lot of pain. DYE HOUSE WORKER entered room and introduced self and role. Patient resting in bed. Patient lives at home with spouse Bari ([phone]) and 13 yr old son. Patient is IADLs/drives at baseline. No DME. Patient reports likely having no needs from CM team at this time. Plan: d/c home with spouse in POV when medically stable. Likely no needs. CM team will continue to follow as needed. JUAN M Langston Discharge Planning/Care Management CM Discharge Assessment Start: 12/22/22 09:14 Freq: Status: Active Protocol: Document 12/22/22 09:15 (Rec: 12/22/22 09:16 [id number]) Discharge Planning Assessment Assigned [employer] Architect JUAN M Vazquez DPOA/Assigned Designee Name Bari Neri (spouse) Contact Information [phone] Advance Directives? No History Provided By Patient,Medical Record Prior Living Arrangements House Household Members spouse,children Comment 13yr old son Type of transporation used prior to Drives own vehicle admit Independent with ADL's Yes Is patient alert and oriented? Yes Discharge Plan Home Transportation Arrangement in POV Referrals Initiated None needed Whiteboard Updated in Patient Room with Yes name and ext. # of [employer] Architect Review Status In Process Next Review Type Continued Stay Review
[2022-12-22] MEDS: PANTOPRAZOLE 40 MG VIAL IV ×2 (09:18→21:16)
[2022-12-22 09:33] LABS: Triglycerides 419 mg/dL (35-150)
[2022-12-22] MEDS: gemfibroziL 600 MG TABLET PO ×2 (09:57→16:11)
[2022-12-22] MEDS: INSULIN GLARGINE 100 UNIT/ML 3ML PEN 15 UNIT SUBCUT (09:57)
--- NOTE | 2022-12-22 14:36 | P.PN_ITS ---
Subjective Subjective Interval history: Patient's abd pain marginally better. Insulin drip weaned off and transitioned to SQ lantus. TG now at 400 so started po gemfibrozil. Patient tolerating very little po. Exam Vital Signs (past 8 hours): - 12/22/22 06:41 12/22/22 07:04 12/22/22 07:05 Temperature Pulse Rate 90 Respiratory Rate 17 Blood Pressure 113/63 Pulse Oximetry 100 83 L 12/22/22 07:05 12/22/22 07:30 12/22/22 08:00 Temperature 97.5 F L Pulse Rate 98 H 95 H 89 Respiratory Rate 20 12 12 Blood Pressure Pulse Oximetry 99 97 98 12/22/22 08:00 12/22/22 08:30 12/22/22 09:00 Temperature Pulse Rate 91 H 93 H Respiratory Rate 13 15 Blood Pressure 115/63 Pulse Oximetry 99 99 12/22/22 09:00 12/22/22 09:30 12/22/22 10:00 Temperature Pulse Rate 96 H 97 H Respiratory Rate 14 14 Blood Pressure 101/70 Pulse Oximetry 12/22/22 10:30 12/22/22 11:00 12/22/22 11:30 Temperature Pulse Rate 98 H 96 H 96 H Respiratory Rate 14 15 12 Blood Pressure Pulse Oximetry 12/22/22 12:00 12/22/22 12:30 12/22/22 13:00 Temperature Pulse Rate 104 H 95 H 92 H Respiratory Rate 18 15 13 Blood Pressure Pulse Oximetry 12/22/22 13:06 12/22/22 13:06 12/22/22 13:30 Temperature Pulse Rate 98 H 96 H Respiratory Rate 14 15 Blood Pressure 108/74 Pulse Oximetry Oxygen Delivery Method Room Air Oxygen Flow Rate 0 Narrative Exam Narrative: GEN: mild distress due to pain HEENT: moist mucous membranes, PERRL NECK: trachea midline, no JVD CV: regular rate and rhythm, no murmurs PULM: clear bilaterally ABD: epigastric tenderness, mildly distended, no organomegaly EXT: warm and well perfused with no edema NEURO: awake, alert, oriented, no focal deficits Objective Labs 12/22/22 02:14 12/22/22 06:03 Labs: Laboratory Results - last 24 hr 12/21/22 12/21/22 12/21/22 08:40 14:00 14:35 WBC RBC Hgb Hct MCV MCH MCHC RDW Plt Count Neut % (Auto) Lymph % (Auto) Millard % (Auto) Eos % (Auto) Baso % (Auto) Neut # (Auto) Lymph # (Auto) Millard # (Auto) Eos # (Auto) Baso # (Auto) Sodium 136 L Potassium 3.5 Chloride 111 H Carbon Dioxide 7 L* BUN 4 L Creatinine 0.54 Estimated GFR > 60 BUN/Creatinine Ratio 7.4 Glucose 214 H Lactate Calcium 9.3 Triglycerides 1499 H Cholesterol 539 H LDL Cholesterol, Calc TNP HDL Cholesterol 66 H Lipase Nasal Screen MRSA (PCR) Cancelled 12/21/22 12/21/22 12/21/22 16:00 18:35 22:21 WBC RBC Hgb Hct MCV MCH MCHC RDW Plt Count Neut % (Auto) Lymph % (Auto) Millard % (Auto) Eos % (Auto) Baso % (Auto) Neut # (Auto) Lymph # (Auto) Millard # (Auto) Eos # (Auto) Baso # (Auto) Sodium 132 L 132 L Potassium 3.4 2.9 L Chloride 110 H 110 H Carbon Dioxide 10 L 10 L BUN 4 L 4 L Creatinine 0.52 0.46 L Estimated GFR > 60 > 60 BUN/Creatinine Ratio 7.7 8.7 Glucose 161 H 144 H Lactate 1.0 Calcium 9.3 9.6 Triglycerides Cholesterol LDL Cholesterol, Calc HDL Cholesterol Lipase Nasal Screen MRSA (PCR) Not detected 12/22/22 12/22/22 12/22/22 02:14 06:03 09:15 WBC 6.8 RBC 3.60 L Hgb 11.8 L Hct 34.1 L MCV 94.8 MCH 32.9 MCHC 34.7 RDW 13.1 Plt Count 210 Neut % (Auto) 82.1 H Lymph % (Auto) 6.0 L Millard % (Auto) 10.5 Eos % (Auto) 1.0 L Baso % (Auto) 0.4 Neut # (Auto) 5600 Lymph # (Auto) 400 L Millard # (Auto) 700 Eos # (Auto) 100 Baso # (Auto) 0 Sodium 132 L 132 L Potassium 3.7 3.6 Chloride 111 H 107 Carbon Dioxide 13 L 15 L BUN 3 L 3 L Creatinine 0.48 L 0.46 L Estimated GFR > 60 > 60 BUN/Creatinine Ratio 6.3 6.5 Glucose 147 H 168 H Lactate Calcium 9.5 9.6 Triglycerides 656 H 419 H Cholesterol LDL Cholesterol, Calc HDL Cholesterol Lipase 335 H D Nasal Screen MRSA (PCR) [facility] Medical History Chronic seasonal allergic rhinitis Alcohol abuse Irregular periods/menstrual cycles Moderate mixed hyperlipidemia not requiring statin therapy Borderline hypothyroidism Alopecia Lichen sclerosus et atrophicus of the vulva Depression Anxiety GERD (gastroesophageal reflux disease) Surgical History History of nephrolithotomy with removal of calculi (2012) History of third molar tooth extraction (1998) Status post delivery (2008) Family History Mother Thyroid disease Father Heart valve disorder Social History household members: spouse and children Smoking Status: Former smoker alcohol intake: current Assessment & Plan Assessment & Plan narrative: # acute DKA in setting of newly diagnosed DM1, DKA now resolved -gap 20, bicarb 7, VBG pH 7.08, A1c 10.5% -no prior history of diabetes -insulin drip per protocol -will need outpatient endo referral from PCP for ongoing management -weaned off insulin drip to 15 units lantus daily # acute pancreatitis 2/2 to hypertriglyceridemia -epigastric pain, inflammation on CT around pancreas, lipase 889. Abd US negative for biliary pathology or gallstones. -etiology likely due to TG level of 1500 -morphine IV PRN -clear liquids, advance as tolerated -IVF -TG now <500 so insulin drip weaned off and started po gemfibrozil # nausea and vomiting, resolved -due to pancreatitis and/or DKA -antiemetics PRN Code status is full code. DVT prophylaxis with SCDs. Proxy is spouse Quang. I have reviewed home meds and used all available resources to reconcile the home meds. Dispo: 1-2 days pending improvement in abd pain and advancing of diet.
[2022-12-22] MEDS: LORazepam 2 MG/ML INJ 0.5 MG IV (22:24)
[2022-12-23 04:00] VITALS: BP 111/73; PULSE 80; RESP 18; O2SAT 98
[2022-12-23 05:21] LABS: Add Manual Diff / Slide Review NO; Basophils Absolute Auto 0 /uL (0-100); Basophils Percent Auto 0.6 % (0-2); Eosinophils Absolute Auto 300 /uL (0-450); Eosinophils Percent Auto 5.6 % (2-4); Hematocrit 32.9 % (36-46); Hemoglobin 11.4 g/dL (12.0-16.0); Lymphocytes Absolute Auto 800 /uL (1100-4500); Mean Corpuscular HGB Conc 34.7 % (30-36); Mean Corpuscular Hemoglobin 32.4 PG (26-34); Mean Corpuscular Volume 93.3 fL (80-100); Monocytes Absolute Auto 600 /uL (0-900); Monocytes Percent Auto 11.3 % (3-14); Neutrophils Absolute Auto 3700 /uL (1500-7000); Neutrophils Percent Auto 67.5 % (50-75); Platelet Count 221 X10^3/uL (150-400); Red Blood Cell Count 3.53 X10^6/uL (4.0-5.2); Red Cell Distribution Width 13.4 % (11.6-14.8); White Blood Cell Count 5.5 X10^3/uL (4.5-11.0)
[2022-12-23 05:47] LABS: Lipase 96 U/L (23-300)
[2022-12-23 05:48] LABS: Triglycerides 412 mg/dL (35-150)
[2022-12-23 05:49] LABS: BUN Creatinine Ratio 6.3 (6-22); Blood Urea Nitrogen 3 mg/dL (7-17); Calcium 8.9 mg/dL (8.4-10.2); Carbon Dioxide 13 mmol/L (22-32); Chloride 103 mmol/L (98-107); Estimated Glomerular Filt Rate > 60 mL/min (>60); Glucose 251 mg/dL (70-100); HEMOLYSIS < 15 (0-50); Potassium 2.9 mmol/L (3.4-5.1); Sodium 133 mmol/L (137-145)
[2022-12-23 07:49] LABS: Magnesium 1.7 mg/dL (1.6-2.3)
[2022-12-23 08:00] VITALS: BP 111/66; PULSE 112; RESP 18; TEMP 36.7; O2SAT 98
[2022-12-23] MEDS: POTASSIUM CHLORIDE 20 MEQ TAB 40 MEQ PO ×2 (08:19→12:01)
[2022-12-23] MEDS: SODIUM CHLORIDE 0.9% FLUSH 10 ML IV (08:21)
[2022-12-23] MEDS: PANTOPRAZOLE 40 MG VIAL IV (08:21)
[2022-12-23] MEDS: gemfibroziL 600 MG TABLET PO ×2 (08:21→16:58)
[2022-12-23] MEDS: INSULIN GLARGINE 100 UNIT/ML 3ML PEN 15 UNIT SUBCUT (08:25)
[2022-12-23] MEDS: MORPHINE 2 MG/ML INJ IV ×2 (08:44→12:01)
[2022-12-23] MEDS: MAGNESIUM SULFATE 2 GM/50 ML PIGGYBACK IV (09:53)
[2022-12-23] MEDS: ONDANSETRON 4 MG/2 ML INJ IV ×2 (12:04→20:07)
[2022-12-23] MEDS: INSULIN LISPRO 100 UNIT/ML 3ML VIAL SUBCUT ×3 (12:11→16:59)
[2022-12-23 14:24] LABS: Fractionated Inspired Oxygen 21; HCO3 VBG 17 mmol/L (24-28); Oxygen Saturation VBG 26 % (70-75); PCO2 VBG 33.1 mmHg (45-50); PO2 VBG 19 mmHg (35-45); Total CO2 VBG 17 mmol/L (24-29); pH VBG 7.31 (7.33-7.43)
[2022-12-23 14:32] LABS: BUN Creatinine Ratio 6.1 (6-22); Blood Urea Nitrogen 3 mg/dL (7-17); Calcium 8.5 mg/dL (8.4-10.2); Carbon Dioxide 18 mmol/L (22-32); Chloride 103 mmol/L (98-107); Estimated Glomerular Filt Rate > 60 mL/min (>60); Glucose 192 mg/dL (70-100); HEMOLYSIS < 15 (0-50); Potassium 3.4 mmol/L (3.4-5.1); Sodium 132 mmol/L (137-145)
[2022-12-23 15:39] VITALS: BP 103/63; PULSE 100; RESP 18; TEMP 36.3; O2SAT 100
--- NOTE | 2022-12-23 16:34 | P.PN_ITS ---
Subjective Subjective Interval history: Patient advancing diet to clears. Still having abd pain. Lantus increased due to high BG and mealtime insulin added. Exam Vital Signs (past 8 hours): - 12/23/22 15:39 Temperature 97.3 F L Pulse Rate 100 H Respiratory Rate 18 Blood Pressure 103/63 Pulse Oximetry 100 Oxygen Flow Rate 0 Oxygen Delivery Method Room Air Oxygen Flow Rate 0 Narrative Exam Narrative: GEN: appears uncomfortable HEENT: moist mucous membranes, PERRL NECK: trachea midline, no JVD CV: regular rate and rhythm, no murmurs PULM: clear bilaterally ABD: epigastric tenderness, mildly distended, no organomegaly EXT: warm and well perfused with no edema NEURO: awake, alert, oriented, no focal deficits Objective Labs 12/23/22 05:01 12/23/22 14:10 Labs: Laboratory Results - last 24 hr 12/21/22 12/23/22 12/23/22 10:12 05:01 07:41 WBC 5.5 RBC 3.53 L Hgb 11.4 L Hct 32.9 L MCV 93.3 MCH 32.4 MCHC 34.7 RDW 13.4 Plt Count 221 Neut % (Auto) 67.5 Lymph % (Auto) 15.0 L Franklin % (Auto) 11.3 Eos % (Auto) 5.6 H Baso % (Auto) 0.6 Neut # (Auto) 3700 Lymph # (Auto) 800 L Franklin # (Auto) 600 Eos # (Auto) 300 Baso # (Auto) 0 VBG pH VBG pCO2 VBG pO2 VBG HCO3 VBG Total CO2 VBG O2 Saturation VBG Base Excess FiO2 Not Reportable Sodium 133 L Potassium 2.9 L Chloride 103 Carbon Dioxide 13 L BUN 3 L Creatinine 0.48 L Estimated GFR > 60 BUN/Creatinine Ratio 6.3 Glucose 251 H Calcium 8.9 Magnesium 1.7 Triglycerides 412 H Lipase 96 D 12/23/22 12/23/22 14:10 14:12 WBC RBC Hgb Hct MCV MCH MCHC RDW Plt Count Neut % (Auto) Lymph % (Auto) Franklin % (Auto) Eos % (Auto) Baso % (Auto) Neut # (Auto) Lymph # (Auto) Franklin # (Auto) Eos # (Auto) Baso # (Auto) VBG pH 7.31 L VBG pCO2 33.1 L VBG pO2 19 L VBG HCO3 17 L VBG Total CO2 17 L VBG O2 Saturation 26 L VBG Base Excess -10.0 L FiO2 21 Sodium 132 L Potassium 3.4 Chloride 103 Carbon Dioxide 18 L BUN 3 L Creatinine 0.49 L Estimated GFR > 60 BUN/Creatinine Ratio 6.1 Glucose 192 H Calcium 8.5 Magnesium Triglycerides Lipase PFSH Medical History Chronic seasonal allergic rhinitis Alcohol abuse Irregular periods/menstrual cycles Moderate mixed hyperlipidemia not requiring statin therapy Borderline hypothyroidism Alopecia Lichen sclerosus et atrophicus of the vulva Depression Anxiety GERD (gastroesophageal reflux disease) Surgical History History of nephrolithotomy with removal of calculi (2012) History of third molar tooth extraction (1998) Status post delivery (2008) Family History Mother Thyroid disease Father Heart valve disorder Social History household members: spouse and children Smoking Status: Former smoker alcohol intake: current Assessment & Plan Assessment & Plan narrative: # acute DKA in setting of newly diagnosed DM1, DKA now resolved -gap 20, bicarb 7, VBG pH 7.08, A1c 10.5% -no prior history of diabetes -insulin drip per protocol, now off -will need outpatient endo referral from PCP for ongoing management -weaned off insulin drip to 20 units lantus BID, after 24 hours req on insulin drip was 63 units # acute pancreatitis 2/2 to hypertriglyceridemia -epigastric pain, inflammation on CT around pancreas, lipase 889. Abd US negative for biliary pathology or gallstones. -etiology likely due to TG level of 1500 -morphine IV PRN, po oxy PRN -clear liquids, advance as tolerated -IVF -TG now <500 so insulin drip weaned off and started po gemfibrozil # nausea and vomiting, resolved -due to pancreatitis and/or DKA -antiemetics PRN Code status is full code. DVT prophylaxis with SCDs. Proxy is spouse Quang. I have reviewed home meds and used all available resources to reconcile the home meds. Dispo: 1-2 days pending improvement in abd pain and advancing of diet.
[2022-12-23] MEDS: OXYCODONE IR 5 MG TABLET PO (17:00)
[2022-12-23] MEDS: SODIUM CHLORIDE 0.9% 1,000 ML 150 ML IV ×2 (17:00→23:08)
[2022-12-23 17:56] VITALS: BP 112/76; PULSE 114; RESP 18; TEMP 36.6; O2SAT 100
[2022-12-23 20:58] VITALS: BP 113/75; PULSE 100; RESP 16; TEMP 36.1; O2SAT 100
[2022-12-23] MEDS: INSULIN GLARGINE 100 UNIT/ML 3ML PEN 20 UNIT SUBCUT (21:17)
[2022-12-23] MEDS: PANTOPRAZOLE DR 40 MG TABLET PO (21:17)
[2022-12-23] MEDS: HYDROCODONE/ACET 10/325 TABLET 1 TAB PO (22:03)
--- NOTE | 2022-12-23 23:58 | PC.NURSE ---
Patient is alert and oriented. Breath sounds CTA with RA sat of 100%. HRR but tachycardic with rate in low 100's. Complained of nausea earlier and was medicated with zofran with resolution of nausea. BT present and is passing flatus but has had no recorded BM since 12/19. Is currently on clear liquid diet and tolerating well. Up to bathroom with SBA and denies dysuria. Is able to turn herself in bed. Refusing SCD's and use of continuous oximetry. When hs insulin administered attempted to teach patient but she declines; spouse watched administration and asked appropriate questions. Complained of sharp pressure like pain in epigastric area but stated the po oxycodone was causing her heart to race, made her feel jumpy and increased her startle reaction to loud noises. Discussion at bedside held as patient wanting IV Morphine. Reminded her that MD is wanting her to try to limit pain meds to po to enable discharge home so patient, along with spouse, discussed options presented earlier by MD and requested I contact publication distributor MD. Dr. Hunt contacted and changed po meds to vicodin. When vicodin brought to patient bedside she stated that med doesn't work for me. Discussed options again: allergy to dilaudid, not tolerating oxycodone and unable to use percocet as it contains oxycodone. Patient verbalized understanding and agreed to try vicodin but assured that if it did not work publication distributor MD would be contacted again. When reassessed patient states took the edge off and stated she did not need MD contacted at this time. Fall risk score is moderate but calling appropriately so alarm not activated at this time.
[2022-12-24 01:00] VITALS: BP 94/61; PULSE 82; RESP 18; TEMP 36.1; O2SAT 92
[2022-12-24 04:09] VITALS: BP 99/63; PULSE 83; RESP 19; TEMP 36.3; O2SAT 100
[2022-12-24] MEDS: ONDANSETRON 4 MG/2 ML INJ IV (04:55)
[2022-12-24] MEDS: HYDROCODONE/ACET 5/325 TABLET 1 TAB PO ×3 (04:56→20:09)
[2022-12-24] MEDS: SODIUM CHLORIDE 0.9% FLUSH 10 ML IV ×3 (04:56→20:10)
[2022-12-24 05:07] LABS: Add Manual Diff / Slide Review NO; Basophils Absolute Auto 0 /uL (0-100); Basophils Percent Auto 0.7 % (0-2); Eosinophils Absolute Auto 300 /uL (0-450); Eosinophils Percent Auto 7.3 % (2-4); Hematocrit 31.1 % (36-46); Hemoglobin 10.8 g/dL (12.0-16.0); Lymphocytes Absolute Auto 900 /uL (1100-4500); Lymphocytes Percent Auto 24.1 % (25-40); Mean Corpuscular HGB Conc 34.6 % (30-36); Mean Corpuscular Hemoglobin 32.3 PG (26-34); Mean Corpuscular Volume 93.4 fL (80-100); Monocytes Absolute Auto 400 /uL (0-900); Monocytes Percent Auto 11.2 % (3-14); Neutrophils Absolute Auto 2200 /uL (1500-7000); Neutrophils Percent Auto 56.7 % (50-75); Platelet Count 237 X10^3/uL (150-400); Red Blood Cell Count 3.33 X10^6/uL (4.0-5.2); Red Cell Distribution Width 13.4 % (11.6-14.8); White Blood Cell Count 3.9 X10^3/uL (4.5-11.0)
[2022-12-24 05:16] LABS: Triglycerides 223 mg/dL (35-150)
[2022-12-24 05:17] LABS: Calcium 7.8 mg/dL (8.4-10.2); Carbon Dioxide 21 mmol/L (22-32); Chloride 106 mmol/L (98-107); Estimated Glomerular Filt Rate > 60 mL/min (>60); Glucose 157 mg/dL (70-100); HEMOLYSIS < 15 (0-50); Sodium 134 mmol/L (137-145)
[2022-12-24 05:23] LABS: BUN Creatinine Ratio 4.5 (6-22); Blood Urea Nitrogen < 2 mg/dL (7-17)
[2022-12-24 08:00] VITALS: BP 117/65; PULSE 85; RESP 16; TEMP 36.7; O2SAT 100
[2022-12-24] MEDS: PANTOPRAZOLE DR 40 MG TABLET PO ×2 (08:15→20:10)
[2022-12-24] MEDS: POTASSIUM CHLORIDE 20 MEQ TAB 40 MEQ PO (08:16)
[2022-12-24] MEDS: gemfibroziL 600 MG TABLET PO ×2 (08:16→17:31)
[2022-12-24] MEDS: POTASSIUM CHLORIDE IN WATER 10 MEQ/100 ML PIGGYBACK 100 MEQ IV ×2 (08:19→11:00)
[2022-12-24] MEDS: INSULIN GLARGINE 100 UNIT/ML 3ML PEN 20 UNIT SUBCUT ×2 (08:19→21:53)
[2022-12-24] MEDS: INSULIN LISPRO 100 UNIT/ML 3ML VIAL SUBCUT ×4 (08:19→17:27)
[2022-12-24] MEDS: IBUPROFEN 400 MG TABLET 800 MG PO (09:46)
[2022-12-24 12:00] VITALS: BP 116/63; PULSE 72; RESP 18; TEMP 36.7; O2SAT 98
[2022-12-24 16:00] VITALS: BP 112/80; PULSE 92; RESP 16; TEMP 36.1
--- NOTE | 2022-12-24 16:41 | DIET.CONS ---
Dietary Consultation Note Admission Date: 12/21/2022 13:00 Assessment: 42y F admitted for pancreatitis found to have new onset JOHNNIE (A1c 10.5) with elevated TGs (1499) and lipase (889) referred to nutrition for DM education. Pt with no hx diabetes. Has hx elevated LDL ~150 x4y, HDL WNL ~60 and TG WNL 96-136. Pt has no prior A1c in EMR and all BGs prior to admission 70-110 range from 9056-1490. Pt states she was 90# in high school and has maintained 100-105# frame since then. Pt practices intermittent fasting, which for her means skipping breakfast and only eating lunch and dinner daily. Usual meals include protein, vegetables and grains at one of the two meals. 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 Pt drinks 3 etoh seltzers nightly, no s/sx etoh withdrawal during hospital stay. Pt expresses fear of eating due to pancreatitis pain and is confused whether or not she can eat carbs or not now. Ht: 152.4 cm Wt: 41 kg BMI: 20.1 UBW: 41kg Last BM: 12/19/22 (12/21/22 13:12) MNA: Terrell Score: 21 Diet: 12/24/22 Dinner Carbohydrate Consistent Diet Diet Modifications: low fat Carbohydrate level: Medium (3 CHO) Reflex DM orders: No Food Texture: Level 7 - Regular Liquid Consistency: Level 0 - Thin Nutrition Percent Meal Consumed 50% 12/24/22 08:00 Percent Meal Consumed 50% 12/23/22 17:58 Percent Meal Consumed 75% 12/23/22 15:40 Percent Meal Consumed 10% 12/23/22 09:23 Labs: RBC 3.33 X10^6/uL (4.0-5.2) L 12/24/22 04:43 Hgb 10.8 g/dL (12.0-16.0) L 12/24/22 04:43 Hct 31.1 % (36-46) L 12/24/22 04:43 Creatinine 0.44 mg/dL (0.52-1.04) L 12/24/22 04:43 Hemoglobin A1c 10.4 % (4.0-6.0) H 12/21/22 08:40 Lactate 1.0 mmol/L (0.7-2.1) 12/21/22 18:35 Nutrition Diagnosis: altered nutrition related laboratory values (A1c) r/t endocrine dysfunction aeb A1c 10.5, no prior Hx elevated BG, pt admitted with acute pancreatitis, pt requiring short and long acting insulin to keep BGs in range this hospitalization. Interventions: 1. Educated pt on JOHNNIE, difference between T1DM and T2DM. 2. Reviewed MNT for JOHNNIE including consistent intake carbohydrates. Pt can continue her regular home diet as it moderates carbohydrate foods with focus on protein and high fiber whole food sources of carbs. 3. Provided listening support and answered nutrition related questions for pt. 4. Assisted pt in ordering appropriate dinner and breakfast. EER: 30-45g CHO/meal Monitoring/Evaluations: Recc referral to endocrinology and DM education program for further support, workup and education. Electronically Signed by: Cindy Chambers 12/24/22 16:41 [address] [id number]
[2022-12-24] MEDS: HYDROCORTISONE 1% CREAM 28 GM 1 APPLIC TOP (17:32)
--- NOTE | 2022-12-24 18:22 | P.PN_ITS ---
Subjective Subjective Interval history: Abd pain improving. Trying to advance diet to solids today. Exam Vital Signs (past 8 hours): - 12/24/22 12:00 12/24/22 16:00 Temperature 98.1 F 96.9 F L Pulse Rate 72 92 H Respiratory Rate 18 16 Blood Pressure 116/63 112/80 Pulse Oximetry 98 Oxygen Flow Rate 0 100 Oxygen Delivery Method Room Air Oxygen Flow Rate 100 Narrative Exam Narrative: GEN: appears more comfortable today HEENT: moist mucous membranes, PERRL NECK: trachea midline, no JVD CV: regular rate and rhythm, no murmurs PULM: clear bilaterally ABD: epigastric tenderness improving, distention improving, no organomegaly EXT: warm and well perfused with no edema NEURO: awake, alert, oriented, no focal deficits Objective Labs 12/24/22 04:43 12/24/22 04:43 Labs: Laboratory Results - last 24 hr 12/24/22 04:43 WBC 3.9 L RBC 3.33 L Hgb 10.8 L Hct 31.1 L MCV 93.4 MCH 32.3 MCHC 34.6 RDW 13.4 Plt Count 237 Neut % (Auto) 56.7 Lymph % (Auto) 24.1 L [place] % (Auto) 11.2 Eos % (Auto) 7.3 H Baso % (Auto) 0.7 Neut # (Auto) 2200 Lymph # (Auto) 900 L [place] # (Auto) 400 Eos # (Auto) 300 Baso # (Auto) 0 Sodium 134 L Potassium 3.0 L Chloride 106 Carbon Dioxide 21 L BUN < 2 L Creatinine 0.44 L Estimated GFR > 60 BUN/Creatinine Ratio 4.5 L Glucose 157 H Calcium 7.8 L Triglycerides 223 H [facility] Medical History Chronic seasonal allergic rhinitis Alcohol abuse Irregular periods/menstrual cycles Moderate mixed hyperlipidemia not requiring statin therapy Borderline hypothyroidism Alopecia Lichen sclerosus et atrophicus of the vulva Depression Anxiety GERD (gastroesophageal reflux disease) Surgical History History of nephrolithotomy with removal of calculi (2012) History of third molar tooth extraction (1998) Status post delivery (2008) Family History Mother Thyroid disease Father Heart valve disorder Social History household members: spouse and children Smoking Status: Former smoker alcohol intake: current Assessment & Plan Assessment & Plan narrative: # acute DKA in setting of newly diagnosed DM1, DKA now resolved -gap 20, bicarb 7, VBG pH 7.08, A1c 10.5% -no prior history of diabetes -insulin drip per protocol, now off -will need outpatient endo referral from PCP for ongoing management -weaned off insulin drip to 20 units lantus BID, after 24 hours req on insulin drip was 63 units # acute pancreatitis 2/2 to hypertriglyceridemia -epigastric pain, inflammation on CT around pancreas, lipase 889. Abd US negative for biliary pathology or gallstones. -etiology likely due to TG level of 1500 -morphine IV PRN, po oxy PRN -clear liquids, advance as tolerated -IVF -TG now <500 so insulin drip weaned off and started po gemfibrozil -advancing diet to solids # nausea and vomiting, resolved -due to pancreatitis and/or DKA -antiemetics PRN Code status is full code. DVT prophylaxis with SCDs. Proxy is spouse Quang. I have reviewed home meds and used all available resources to reconcile the home meds. Dispo: Likely home on 12/25.
[2022-12-24 20:33] VITALS: BP 96/61; PULSE 83; RESP 18; TEMP 36.4; O2SAT 100
[2022-12-24] MEDS: LORazepam 2 MG/ML INJ 0.5 MG IV (22:04)
[2022-12-25 05:06] VITALS: BP 116/73; PULSE 76; RESP 18; TEMP 36.2; O2SAT 97
[2022-12-25 05:36] LABS: Add Manual Diff / Slide Review NO; Basophils Absolute Auto 0 /uL (0-100); Basophils Percent Auto 0.7 % (0-2); Eosinophils Absolute Auto 300 /uL (0-450); Eosinophils Percent Auto 10.7 % (2-4); Hematocrit 32.6 % (36-46); Hemoglobin 11.5 g/dL (12.0-16.0); Lymphocytes Absolute Auto 1100 /uL (1100-4500); Lymphocytes Percent Auto 34.3 % (25-40); Mean Corpuscular HGB Conc 35.2 % (30-36); Mean Corpuscular Hemoglobin 32.8 PG (26-34); Mean Corpuscular Volume 93.4 fL (80-100); Monocytes Absolute Auto 400 /uL (0-900); Monocytes Percent Auto 14.2 % (3-14); Neutrophils Absolute Auto 1200 /uL (1500-7000); Neutrophils Percent Auto 40.1 % (50-75); Platelet Count 277 X10^3/uL (150-400); Red Cell Distribution Width 13.3 % (11.6-14.8); White Blood Cell Count 3.1 X10^3/uL (4.5-11.0)
[2022-12-25] MEDS: PANTOPRAZOLE DR 40 MG TABLET PO (06:12)
[2022-12-25] MEDS: gemfibroziL 600 MG TABLET PO (06:12)
[2022-12-25 06:38] LABS: BUN Creatinine Ratio 7.8 (6-22); Blood Urea Nitrogen 5 mg/dL (7-17); Calcium 9.4 mg/dL (8.4-10.2); Carbon Dioxide 26 mmol/L (22-32); Chloride 103 mmol/L (98-107); Estimated Glomerular Filt Rate > 60 mL/min (>60); Glucose 91 mg/dL (70-100); HEMOLYSIS < 15 (0-50); Potassium 3.1 mmol/L (3.4-5.1); Sodium 137 mmol/L (137-145)
[2022-12-25 06:42] LABS: Triglycerides 176 mg/dL (35-150)
[2022-12-25] MEDS: INSULIN GLARGINE 100 UNIT/ML 3ML PEN 20 UNIT SUBCUT (08:40)
[2022-12-25] MEDS: HYDROCODONE/ACET 5/325 TABLET 1 TAB PO (08:42)
[2022-12-25] MEDS: SODIUM CHLORIDE 0.9% FLUSH 10 ML IV (08:46)
[2022-12-25 09:00] VITALS: BP 105/72; PULSE 86; RESP 18; TEMP 37.1; O2SAT 98
[2022-12-25] MEDS: POTASSIUM CHLORIDE 20 MEQ TAB 40 MEQ PO (10:19)
--- NOTE | 2022-12-25 10:44 | CM.DPC ---
DCP Cont. Pt to d/c home today, OP f/u with Endocrinology. Family to transport home when ready for d/c. Met w/pt at bedside, discussed plan to d/c today and that the RN/Hospitalist will discuss medications and d/c instructions later today. She has a plan to f/u with her PCP to obtain a referral for OP Endocrinology f/u. Spouse will transport home. No further CM needs identified at this time.
[2022-12-25] MEDS: INSULIN LISPRO 100 UNIT/ML 3ML VIAL SUBCUT ×2 (13:20)
--- NOTE | 2022-12-25 13:27 | PM.DS.1 ---
History of Present Illness History of Present Illness Chief complaint: poss hernia, increased pain t-1 Narrative: Emmy Neri is a 42yo F with PMH of alcohol use, depression, anxiety, lichen sclerosis, and GERD who presents with acute abd pain and found to be in DKA with pancreatitis. Patient came to the ED with LQ abd pain yesterday and was sent home after nothing was found. Then around 3:30pm she developed acute onset epigastric abd pain with intractable NV. Came back to ED where CT abd showed some mild peripancreatic edema and lipase 889. Also with gap of 20 with bicarb 7, ketones 10.98 consistent with DKA. A1c 10.5%. Patient has no diabetes history. She drinks 3 hard seltzers most days but will skip a day now and then. No withdrawal history. She notes current stabbing epigastric pain radiating to her back. No CP, SOB, dizziness, diarrhea, or dysuria. Discharge Providers Provider Date of admission: 12/21/22 13:00 Discharge Date: 12/25/22 Primary care physician: Bari Chacon DO Consults: 12/21/22 13:10 Consult to Dietitian, Adult Routine Comment: Reason For Exam: DKA, no former history of diabetes Discharge provider: Don Hernandez DO Summary Hospital Course Discharge Diagnosis: # acute DKA in setting of newly diagnosed DM1, DKA now resolved -gap 20, bicarb 7, VBG pH 7.08, A1c 10.5% -no prior history of diabetes -insulin drip per protocol, now off -will need outpatient endo referral from PCP for ongoing management -weaned off insulin drip to 15 units lantus BID, after 24 hours req on insulin drip was 63 units # acute pancreatitis 2/2 to hypertriglyceridemia -epigastric pain, inflammation on CT around pancreas, lipase 889. Abd US negative for biliary pathology or gallstones. -etiology likely due to TG level of 1500 -morphine IV PRN, po oxy PRN -clear liquids, advance as tolerated -IVF -TG now <500 so insulin drip weaned off and started po gemfibrozil -advancing diet to solids # nausea and vomiting, resolved -due to pancreatitis and/or DKA -antiemetics PRN Hospital Course: Admitted for new-onset type 1 diabetes with DKA as well as triglyceride-induced pancreatitis with TG of 1500. Put on insulin drip and DKA resolved. Transitioned to lantus 15u BID. Insulin drip also lowered triglycerides to 200's. Placed on po gemfibrozil. Educated on new diagnosis of DM1. Will get referral to endo for ongoing management. Given scripts for lantus 15u BID and lispro 5u TID with meals until then. Also given glucometer and script sent for lancets, strips and needles for pens. Able to advance diet to solids before discharge. Exam Vital Signs (past 8 hours): - 12/25/22 09:00 Temperature 98.7 F Pulse Rate 86 Respiratory Rate 18 Blood Pressure 105/72 Pulse Oximetry 98 Oxygen Delivery Method Room Air Oxygen Flow Rate 100 Narrative Exam Narrative: GEN: appears more comfortable today HEENT: moist mucous membranes, PERRL NECK: trachea midline, no JVD CV: regular rate and rhythm, no murmurs PULM: clear bilaterally ABD: epigastric tenderness improving, distention improving, no organomegaly EXT: warm and well perfused with no edema NEURO: awake, alert, oriented, no focal deficits Objective Labs 12/25/22 04:59 12/25/22 04:59 Labs: Laboratory Results - last 24 hr 12/25/22 04:59 WBC 3.1 L RBC 3.50 L Hgb 11.5 L Hct 32.6 L MCV 93.4 MCH 32.8 MCHC 35.2 RDW 13.3 Plt Count 277 Neut % (Auto) 40.1 L Lymph % (Auto) 34.3 [place] % (Auto) 14.2 H Eos % (Auto) 10.7 H Baso % (Auto) 0.7 Neut # (Auto) 1200 L Lymph # (Auto) 1100 [place] # (Auto) 400 Eos # (Auto) 300 Baso # (Auto) 0 Sodium 137 Potassium 3.1 L Chloride 103 Carbon Dioxide 26 BUN 5 L Creatinine 0.64 Estimated GFR > 60 BUN/Creatinine Ratio 7.8 Glucose 91 Calcium 9.4 Triglycerides 176 H [facility] Medical History Chronic seasonal allergic rhinitis Alcohol abuse Irregular periods/menstrual cycles Moderate mixed hyperlipidemia not requiring statin therapy Borderline hypothyroidism Alopecia Lichen sclerosus et atrophicus of the vulva Depression Anxiety GERD (gastroesophageal reflux disease) Surgical History History of nephrolithotomy with removal of calculi (2012) History of third molar tooth extraction (1998) Status post delivery (2008) Family History Mother Thyroid disease Father Heart valve disorder Social History household members: spouse and children Smoking Status: Former smoker alcohol intake: current Discharge Plan Discharge Plan Patient Disposition: Home Provider Discharge Comment: You were diagnosed with likely type 1 diabetes. You will now need to be on insulin and check your blood sugars daily. I've provided instructions for this. Please get into to see endocrinology. You also had pancreatitis from high cholesterol. So you are on a new cholesterol medication. Discharge orders & Medications Prescriptions: New hydrocodone-acetaminophen 5-325 mg Tablet 1 tab PO Q6HR PRN (Reason: Pain, Moderate (4-6)) Qty: 30 0RF gemfibrozil 600 mg Tablet 600 mg PO BIDAC Qty: 60 0RF insulin glargine [Lantus Solostar U-100 Insulin] 100 unit/mL (3 mL) Insulin Pen 30 unit SUBCUT DAILY Qty: 15 0RF insulin lispro 100 unit/mL insulin pen 5 unit SUBCUT AC Qty: 15 0RF ondansetron 4 mg tablet,disintegrating 4 mg PO Q6-8H PRN (Reason: nausea and vomiting) Qty: 30 0RF (DME) lancets 33 gauge misc See Rx Instructions .Route Qty: 100 0RF Rx Instructions: Use to test once daily (DME) pen needle, diabetic [Pen Needle] 32 gauge x 5/32 needle See Rx Instructions .Route Qty: 400 0RF Rx Instructions: Use to inject up to 4x daily (DME) Accu-Chek Guide test strips Strip See Rx Instructions .Route Qty: 400 0RF Rx Instructions: Use to check up to 4x daily Continued alprazolam 1 mg tablet 1 mg PO BID-TID PRN (Reason: anxiety) Qty: 120 3RF cetirizine [Zyrtec] 10 mg tablet 10 mg PO DAILY No Action (DME) FreeStyle Josh 2 [place] Misc See Rx Instructions .Route Qty: 1 0RF Rx Instructions: As directed Follow up/Referrals: Bari Chacon, [Primary Care Provider] - 01/07/23 1:30 pm (appt:01/07 @ 1:[address] quiroz please arrive 15 min prior to your schedduled appointment time ) Visit Report/Discharge Packet Stand Alone Forms: Patient Portal/API, Stroke Signs & Symptoms Discharge Data Primary Care Provider: Bari Chacon Discharges patient from system. Discharge Date/Time: 12/25/22 15:35
--- NOTE | 2022-12-25 16:17 | PC.NURSE ---
Patient is A&Ox4, VSS, afebrile on RA. She reports mild- moderate upper abdominal pain controlled well with prn pain med hydrocodone 5/325mg today. She is able to tolerate breakfast and lunch. MD with Pharmacoepidemiologist at bedside explaining new medications and managing blood glucose. Patient verbalizes understanding of medications, blood sugar management and plan to follow up with PCP in 2 weeks with plan for client director referral. She is escorted to entrance via wheel chair at 1535 by RN for discharge home with Aunt arriving in a private vehicle this afternoon at approx
== END 2022-12-25 15:35 | disposition home or self-care (01) | DRG 637 ==
LOC: ED 12:36 → AC 13:01 → ICU 13:11 → AC 12-22 22:13
PROVIDERS: Internal Medicine; Admitting Provider Student in an Organized Health Care Education/Training Program; Emergency Provider Emergency Medicine; PCP Family Medicine; Referring Provider Emergency Medicine; Visit Provider Student in an Organized Health Care Education/Training Program
DX: E10.10 Type 1 diabetes mellitus with ketoacidosis without coma (principal); K85.90 Acute pancreatitis without necrosis or infection, unspecified; R10.9 Unspecified abdominal pain; E78.1 Pure hyperglyceridemia; F41.9 Anxiety disorder, unspecified; Z87.891 Personal history of nicotine dependence; Z87.442 Personal history of urinary calculi
CPT/HCPCS: 36415; 74170; 74176; 76705; 80048; 80053; 80061; 81003; 81015; 81025; 82009; 82805; 82962; 83036; 83605; 83690; 83735; 84443; 84478; 84703; 85025; 87086; 87633; 87797; 93005; 96374; 96375; 96376; 99284; 99285; 99291; C9113; J1170; J2060; J2270; J2405; J3475; Q9967

== ENCOUNTER → 2023-01-07 08:47 | Outpatient (CLI) | payer OTHER, SELFPAY ==
[2022-12-21 13:12] VITALS: BMI 20.1
[2023-01-07 10:03] LABS: Add Manual Diff / Slide Review NO; Basophils Absolute Auto 100 /uL (0-100); Basophils Percent Auto 1.8 % (0-2); Eosinophils Absolute Auto 300 /uL (0-450); Eosinophils Percent Auto 7.1 % (2-4); Hematocrit 36.2 % (36-46); Hemoglobin 12.2 g/dL (12.0-16.0); Lymphocytes Absolute Auto 1800 /uL (1100-4500); Mean Corpuscular HGB Conc 33.9 % (30-36); Mean Corpuscular Hemoglobin 31.6 PG (26-34); Mean Corpuscular Volume 93.4 fL (80-100); Monocytes Absolute Auto 500 /uL (0-900); Monocytes Percent Auto 10.7 % (3-14); Neutrophils Absolute Auto 2000 /uL (1500-7000); Neutrophils Percent Auto 42.4 % (50-75); Platelet Count 441 X10^3/uL (150-400); Red Blood Cell Count 3.87 X10^6/uL (4.0-5.2); Red Cell Distribution Width 12.3 % (11.6-14.8); White Blood Cell Count 4.7 X10^3/uL (4.5-11.0)
[2023-01-07 10:19] LABS: HEMOLYSIS < 15 (0-50); Iron 59 ug/dL (37-170)
[2023-01-07 10:28] LABS: BUN Creatinine Ratio 12.3 (6-22); Blood Urea Nitrogen 7 mg/dL (7-17); Calcium 9.8 mg/dL (8.4-10.2); Carbon Dioxide 23 mmol/L (22-32); Chloride 105 mmol/L (98-107); Estimated Glomerular Filt Rate > 60 mL/min (>60); Glucose 133 mg/dL (70-100); HEMOLYSIS < 15 (0-50); Potassium 4.5 mmol/L (3.4-5.1); Sodium 137 mmol/L (137-145)
[2023-01-07 10:33] LABS: Percent Iron Saturation 16 % (15-50); Total Iron Binding Capacity 363 ug/dL (265-497); Transferrin 289 mg/dL (206-381)
[2023-01-07 10:57] LABS: Ferritin 60 ng/mL (6-137)
[2023-01-08 07:10] LABS: C Peptide 0.9 ng/mL (1.1-4.4); Insulin Level Total 1.8 uIU/mL (2.6-24.9)
== END ==
PROVIDERS: PCP Family Medicine; Referring Provider Physician Assistant; Visit Provider Physician Assistant
DX: E11.9 Type 2 diabetes mellitus without complications (principal); E11.10 Type 2 diabetes mellitus with ketoacidosis without coma; K85.90 Acute pancreatitis without necrosis or infection, unspecified; D64.9 Anemia, unspecified
CPT/HCPCS: 36415; 80048; 82728; 83525; 83540; 83550; 84443; 84681; 85025; 86337

== ENCOUNTER → 2023-01-10 12:49 | Outpatient (CLI) | payer OTHER, SELFPAY ==
[2022-12-21 13:12] VITALS: BMI 20.1
--- NOTE | 2023-01-10 | DI.CT.S_ITS ---
PROCEDURE: CT SINUS SCREEN WO CON INDICATIONS: Chronic pansinusitis TECHNIQUE: Noncontrast 3.0 mm axial images acquired from the frontal sinuses to the mid-sella, with coronal and sagittal reformats. For radiation dose reduction, the following was used: automated exposure control, adjustment of mA and/or kV according to patient size. COMPARISON: None. FINDINGS: Image quality: Excellent. Maxillary Sinuses: There is moderate mucosal thickening within the maxillary sinuses, left worse than right. There is demineralization of the medial nuñez of the maxillary sinuses. Ethmoid Air Cells: Moderate mucosal thickening can be seen within the ethmoid air cells, right worse than left. There is demineralization of the ethmoid air cell septations. Sphenoid Sinuses: No bony remodeling or destruction. Mild mucosal thickening can be seen involving the anterior sphenoid sinuses. Frontal Sinuses: The right frontal sinus is poorly developed and is completely opacified. Mild mucosal thickening can be seen involving the inferior medial left frontal sinus. Ostiomeatal Complexes: The ostiomeatal complexes are constitutionally narrowed, with further narrowing by soft tissue thickening, left worse than right. The ostiomeatal complexes are demineralized. Miscellaneous: Visualized intra-orbital contents are normal. No uche bullosa or paradoxical turbinate curvature. There is mild leftward nasal septal deviation. Incidental note is made of a metallic body ornamentation artifact. IMPRESSION: Widespread paranasal sinus disease can be seen, which is worst within the maxillary sinuses and within the right frontal sinus. Highly narrowed ostiomeatal complexes, with soft tissue thickening. Areas of bony demineralization are seen, which are consistent with chronic sinusitis. The appearance of the sinuses is clearly worse than in 2013. Dictated by: Wilman Harman M.D. on 01/10/2023 at 12:50 Approved by: Wilman Harman M.D. on 01/10/2023 at 12:54
== END ==
PROVIDERS: PCP Family Medicine; Referring Provider Otolaryngology; Visit Provider Otolaryngology
DX: J34.89 Other specified disorders of nose and nasal sinuses (principal); J32.4 Chronic pansinusitis; J34.2 Deviated nasal septum
CPT/HCPCS: 70486

== ENCOUNTER → 2023-01-30 08:58 | Outpatient (CLI) | payer OTHER, SELFPAY ==
[2022-12-21 13:12] VITALS: BMI 20.1
[2023-01-30 11:23] LABS: Hemoglobin A1C% w Est Avg Glu 9.2 % (4.0-6.0)
[2023-01-30 11:39] LABS: Free T4, Direct Thyroxine 0.94 ng/dL (0.78-2.19)
[2023-01-30 11:54] LABS: Thyroid Stimulating Hormone 0.572 uIU/mL (0.47-4.68)
[2023-01-30 11:59] LABS: Ferritin 33 ng/mL (6-137)
[2023-01-30 12:13] LABS: Vitamin B12 268 pg/mL (239-931)
[2023-01-31 23:30] LABS: Thyroid Peroxidase Antibodies <9 IU/mL (0-34)
== END ==
PROVIDERS: PCP Family Medicine; Referring Provider Physician Assistant; Visit Provider Physician Assistant
DX: G47.00 Insomnia, unspecified (principal); E11.9 Type 2 diabetes mellitus without complications; L65.9 Nonscarring hair loss, unspecified
CPT/HCPCS: 36415; 82607; 82728; 83036; 84439; 84443; 86376

== ENCOUNTER → 2023-02-19 07:59 | Outpatient (CLI) | payer OTHER, SELFPAY ==
[2022-12-21 13:12] VITALS: BMI 20.1
[2023-02-19 09:08] LABS: Alanine Aminotransferase 18 IU/L (<35); Albumin 3.6 g/dL (3.5-5.0); Albumin Globulin Ratio 1.4 (1.0-2.8); Alkaline Phosphatase 40 U/L (38-126); Aspartate Aminotransferase 22 IU/L (14-36); BUN Creatinine Ratio 17.3 (6-22); Bilirubin Total 0.6 mg/dL (0.2-1.3); Blood Urea Nitrogen 9 mg/dL (7-17); Calcium 9.2 mg/dL (8.4-10.2); Carbon Dioxide 25 mmol/L (22-32); Chloride 106 mmol/L (98-107); Cholesterol 224 mg/dL (140-199); Estimated Glomerular Filt Rate > 60 mL/min (>60); Globulin 2.6 g/dL (1.7-4.1); Glucose 155 mg/dL (70-100); HDL Cholesterol 48 mg/dL (40-60); HEMOLYSIS < 15 (0-50); LDL Cholesterol Calculated 151 mg/dL (<100); Potassium 4.2 mmol/L (3.4-5.1); Sodium 138 mmol/L (137-145); Total Protein 6.2 g/dL (6.3-8.2); Triglycerides 124 mg/dL (35-150)
[2023-02-20 05:18] LABS: Apolipoprotein B 119 mg/dL (<90)
[2023-02-21 10:55] LABS: GAD-65 Antibody <5.0 U/mL (0.0-5.0)
[2023-02-21 12:36] LABS: Antipancreatic Islet Cells Negative (Neg:<1:1)
[2023-02-22 03:15] LABS: Lipoprotein (a) 8.8 nmol/L (<75.0)
== END ==
PROVIDERS: PCP Family Medicine; Referring Provider Family Medicine; Visit Provider Family Medicine
DX: E78.1 Pure hyperglyceridemia (principal); D64.9 Anemia, unspecified; E11.9 Type 2 diabetes mellitus without complications; E03.9 Hypothyroidism, unspecified; E78.5 Hyperlipidemia, unspecified; E11.10 Type 2 diabetes mellitus with ketoacidosis without coma
CPT/HCPCS: 36415; 80053; 80061; 82172; 83695; 86341

== ENCOUNTER 2023-03-01 08:08 | Emergency (ER) | payer OTHER, SELFPAY ==
[2022-12-21 13:12] VITALS: BMI 20.1
[2023-03-01] VITALS (9 sets, daily range): BP systolic 142; BP diastolic 73; PULSE 82–103; RESP 18; TEMP 36.8; O2SAT 97–100
--- NOTE | 2023-03-01 08:44 | ED.GENADULT ---
HPI - General Adult General Chief complaint: Diabetic Problem Stated complaint: ketones in urine, elevated sugar level Time Seen by Provider: 03/01/23 08:40 Source: patient Mode of arrival: Family Vehicle History of Present Illness HPI narrative: Patient is a 42-year-old female with newly diagnosed insulin-dependent diabetes. She has a continuous glucose monitor the last 3 nights she reports that it has been waking her up elevated. This morning it is 200. She is not had fever chills or infectious symptoms. She is no abdominal pain nausea vomiting. She reports that she takes metformin once daily and Lantus 20 units at night. She was worried because this morning she had ketones. She was previously admitted to ICU sober with DKA. She does sound like she is congested however she reports that she has had chronic nasal congestion and postnasal drip since May and it has not changed. Related Data Home Medications Medication Instructions Recorded Confirmed cetirizine 10 mg tablet (Zyrtec) 10 mg PO DAILY 07/23/22 02/24/23 Previous Rx's Medication Instructions Recorded alprazolam 1 mg tablet 1 mg PO BID-TID PRN anxiety #120 08/09/22 tabs blood sugar diagnostic (Accu-Chek #400 ea 12/25/22 Guide test strips) insulin lispro 100 unit/mL 5 unit (0.05 mL) SUBCUT AC #15 mL 12/25/22 subcutaneous pen ondansetron 4 mg disintegrating 4 mg PO Q6-8H PRN nausea and 12/25/22 tablet vomiting #30 tabs pen needle, diabetic 32 gauge x #400 ea 12/25/2232 (Pen Needle) lancets 33 gauge (OneTouch Delica #200 ea 01/13/23 Plus Lancet) metformin 500 mg tablet,extended 500 mg PO DAILY #90 tabs 01/31/23 release 24hr gemfibrozil 600 mg tablet 600 mg PO BIDAC #40 tabs 02/04/23 flash glucose scanning reader #1 ea 02/10/23 (FreeStyle Josh 2 [place]) flash glucose sensor (FreeStyle #2 ea 02/10/23 Josh 2 Sensor kit) rosuvastatin 5 mg tablet (Crestor) See Rx Instructions PO .nightly 02/24/23 #180 tabs insulin glargine 100 unit/mL (3 30 unit (0.3 mL) SUBCUT DAILY #15 02/27/23 mL) subcutaneous pen (Lantus mL Solostar U-100 Insulin) Allergies Allergy/AdvReac Type Severity Reaction Status Date / Time hydromorphone [HYDROMORPHONE] AdvReac Severe severe Verified 03/01/23 09:14 vomiting and dizziness levothyroxine AdvReac Intermediate Bloating Verified 03/01/23 09:14 amoxicillin [From AUGMENTIN] AdvReac Mild vomiting Verified 03/01/23 09:14 ciprofloxacin [From CIPRO] AdvReac Mild vomiting Verified 03/01/23 09:14 clavulanic acid AdvReac Mild vomiting Verified 03/01/23 09:14 [From AUGMENTIN] favian [FAVIAN] AdvReac Mild vomiting Verified 03/01/23 09:14 papaya [PAPAYA] AdvReac Mild vomiting Verified 03/01/23 09:14 tramadol [TRAMADOL] AdvReac Mild vomiting Verified 03/01/23 09:14 Patient History Medical History (Updated 03/01/23 @ 09:54 by Cathy John DO) UTI (urinary tract infection) Urinary frequency Hair loss Chronic seasonal allergic rhinitis Irregular periods/menstrual cycles Moderate mixed hyperlipidemia not requiring statin therapy Borderline hypothyroidism Alopecia Lichen sclerosus et atrophicus of the vulva Depression Anxiety GERD (gastroesophageal reflux disease) Surgical History History of nephrolithotomy with removal of calculi (2012) History of third molar tooth extraction (1998) Status post delivery (2008) Family History Mother Thyroid disease Father Heart valve disorder Social History household members: spouse and children Smoking Status: Former smoker alcohol intake: current Smoking Status: Former smoker tobacco type: cigarettes alcohol intake frequency: 0-2 drinks per day Substance Use Type: does not use Exam Initial Vital Signs Initial Vital Signs: Vital Signs Pulse Rate 101 H 03/01/23 08:28 Pulse Oximetry 100 03/01/23 08:28 GENERAL: Alert 42-year-old female and in no acute distress. HEENT: Head atraumatic,EOMI, pupils reactive, face symmetric, moist mucous membranes CARDIOVASCULAR: Regular rate and rhythm without murmurs, rubs or gallops. RESPIRATORY: Breath sounds equal bilaterally, no wheezes rales or rhonchi. ABDOMEN: Soft, nontender. Normoactive bowel sounds all 4 quadrants. No guarding or rebound. EXTREMITIES: Normal range of motion, no clubbing or edema. Neurovascularly intact NEUROLOGICAL: Alert and oriented x4.Normal gait and speech. SKIN: Warm, dry, no laceration, no petechiae, no rashes or lesions. Course Orders Ordered: ED Orders 03/01/23 08:28 CBC Auto Diff [Complete Blood Count AUTO DIFF] Stat CMP [Comprehensive Metabolic Panel] Stat Ketones (Beta-Hydroxybutyrate) Stat Lactate (Lactic Acid) Stat 03/01/23 08:39 VBG [Venous Blood Gas] Stat 03/01/23 09:54 Urine Culture Stat Urine Microscopic Stat Discontinued Medications Sodium Chloride (Normal Saline 0.9%) 1,000 mls @ 1,000 mls/hr IV BOLUS ONE Stop: 03/01/23 10:01 Last Infusion: 03/01/23 10:10 Dose: Infused Documented By: Admin: 03/01/23 09:10 Dose: 1,000 mls/hr Documented By: THEO Vital Signs Vital signs: Vital Signs - 8 hr 03/01/23 08:28 03/01/23 08:30 03/01/23 08:33 Temperature 98.2 F Pulse Rate 101 H 100 H 82 Respiratory Rate 18 Blood Pressure 142/73 H Pulse Oximetry 100 100 99 Oxygen Delivery Method Room Air 03/01/23 08:45 03/01/23 09:00 03/01/23 09:15 Temperature Pulse Rate 103 H 97 H 98 H Respiratory Rate Blood Pressure Pulse Oximetry 100 99 99 Oxygen Delivery Method 03/01/23 09:30 03/01/23 09:45 03/01/23 10:00 Temperature Pulse Rate 94 H 89 83 Respiratory Rate Blood Pressure Pulse Oximetry 97 100 100 Oxygen Delivery Method Medical Decision Making Lab Data 03/01/23 08:28 03/01/23 08:28 Labs: Lab Results 03/01/23 03/01/23 03/01/23 Range/Units 08:28 08:39 09:54 WBC 4.8 (4.5-11.0) X10^3/uL RBC 4.44 (4.0-5.2) X10^6/uL Hgb 13.5 (12.0-16.0) g/dL Hct 40.5 (36-46) % MCV 91.2 (80-100) fL MCH 30.4 (26-34) PG MCHC 33.3 (30-36) % RDW 12.7 (11.6-14.8) % Plt Count 281 (150-400) X10^3/uL Neut % (Auto) 42.8 L (50-75) % Lymph % (Auto) 31.4 (25-40) % [place] % (Auto) 15.3 H (3-14) % Eos % (Auto) 9.7 H (2-4) % Baso % (Auto) 0.8 (0-2) % Neut # (Auto) 2100 (8334-0455) /uL Lymph # (Auto) 1500 (8395-0015) /uL [place] # (Auto) 700 (0-900) /uL Eos # (Auto) 500 H (0-450) /uL Baso # (Auto) 0 (0-100) /uL VBG pH 7.41 (7.33-7.43) VBG pCO2 36.0 L (45-50) mmHg VBG pO2 25 L (35-45) mmHg VBG HCO3 23 L (24-28) mmol/L VBG Total CO2 24 (24-29) mmol/L VBG O2 Saturation 48 L (70-75) % VBG Base Excess -2.0 L (0-4) mmol/L FiO2 21 Sodium 135 L (137-145) mmol/L Potassium 4.2 (3.4-5.1) mmol/L Chloride 104 (98-107) mmol/L Carbon Dioxide 22 (22-32) mmol/L BUN 12 (7-17) mg/dL Creatinine 0.50 L (0.52-1.04) mg/dL Estimated GFR > 60 (>60) mL/min BUN/Creatinine Ratio 24.0 H (6-22) Glucose 211 H (70-100) mg/dL Lactate 1.1 (0.7-2.1) mmol/L Calcium 9.2 (8.4-10.2) mg/dL Total Bilirubin 0.5 (0.2-1.3) mg/dL AST 30 (14-36) IU/L ALT 21 (<35) IU/L Alkaline Phosphatase 53 (38-126) U/L Total Protein 7.6 (6.3-8.2) g/dL Albumin 4.2 (3.5-5.0) g/dL Globulin 3.4 (1.7-4.1) g/dL Albumin/Globulin Ratio 1.2 (1.0-2.8) Urine RBC None seen (0-5/HPF) Urine WBC 0-1/hpf (0-5/HPF) Ur Squamous Epith Cells 0-1 /hpf (0-5/HPF) Urine Bacteria Occasional (0-1) (None) Urine Mucus 1+ H (Negative) Ur Culture Indicated? Cult not indicated Ketones 0.82 H (<0.27) mmol/L Point of Care Testing Test Results Negative Glucose POC 213 Urine Dip Bedside Urine Glucose 100 mg/dl Bedside Urine Bilirubin - Negative Bedside Urine Ketone ++ 40 Urine Specific [place] 1.025 Bedside Urine Occult Blood - Negative Bedside Urine pH 5.5 Bedside Urine Protein - Negative Bedside Urine Urobilinogen - Negative Bedside Urine Nitrite - Negative Bedside Urine Leukocytes - Negative Esterase Point of care testing: Point of Care Testing Test Results Negative Glucose POC 213 Urine Dip Bedside Urine Glucose 100 mg/dl Bedside Urine Bilirubin - Negative Bedside Urine Ketone ++ 40 Urine Specific [place] 1.025 Bedside Urine Occult Blood - Negative Bedside Urine pH 5.5 Bedside Urine Protein - Negative Bedside Urine Urobilinogen - Negative Bedside Urine Nitrite - Negative Bedside Urine Leukocytes - Negative Esterase MDM Narrative Medical decision making narrative: Patient 42-year-old female with newly diagnosis of diabetes presents today with uncontrolled blood sugars. She is a continuous glucose monitor that wakes her up at night with elevated glucose. This morning it is 211. She is absolutely no evidence of DKA despite having ketones and glucose in her urine. VBG has a pH of 7.4 normal bicarb and other labs are reassuring. She has not yet met with a dietitian. According to notes she sometimes forgets some of her medication. At this time I see no need for any further workup or intervention. She chronically has some nasal congestion she reports is not new she is afebrile with vitals. May need adjustment to her Lantus dose at night. Discharge Plan Departure Patient Disposition: Home Clinical Impression: Hyperglycemia Instructions: DI for Diabetes Type 1 -- Adult Activity Restrictions/Additional Instructions: *You have been diagnosed with hyperglycemia *What to do: At this time there is absolutely no evidence DKA. Please discuss with your primary care provider about changing your Lantus dose at night to help elevated glucose levels *Continue to take medications as directed *Follow up with your primary care provider in 2-3 days or call [phone] *Return to ER if you should have glucose levels greater than 500, or less than 70, nausea vomiting abdominal pain fever or any new, worsening or concerning symptoms Prescriptions: No Action alprazolam 1 mg tablet 1 mg PO BID-TID PRN (Reason: anxiety) Qty: 120 3RF (DME) lancets [OneTouch Delica Plus Lancet] 33 gauge misc See Rx Instructions .Route Qty: 200 2RF Rx Instructions: Use to test four times daily gemfibrozil 600 mg tablet 600 mg PO BIDAC Qty: 40 0RF (DME) FreeStyle Josh 2 [place] Misc See Rx Instructions .ROUTE .MEDSUPPLY Qty: 1 1RF Rx Instructions: USE TO TEST BLOOD GLUCOSE LEVELS CONTINUOUSLY. REPLACE AFTER 3 YEARS OR DAMAGED (DME) FreeStyle Josh 2 Sensor Kit See Rx Instructions .ROUTE .MEDSUPPLY Qty: 2 12RF Rx Instructions: USE TO CHECK BLOOD GLUCOSE LEVELS CONTINUOUSLY. REPLACE EVERY 14 DAYS. insulin glargine [Lantus Solostar U-100 Insulin] 100 unit/mL (3 mL) insulin pen 30 unit SUBCUT DAILY Qty: 15 0RF cetirizine [Zyrtec] 10 mg tablet 10 mg PO DAILY metformin 500 mg tablet extended release 24hr 500 mg PO DAILY Qty: 90 0RF rosuvastatin [Crestor] 5 mg tablet See Rx Instructions PO .nightly Qty: 180 1RF Rx Instructions: orally NIGHTLY; start taking 1 tab po nightly for 1 week then increase to 2 tabs po nightly thereafter insulin lispro 100 unit/mL insulin pen 5 unit SUBCUT AC Qty: 15 0RF ondansetron 4 mg tablet,disintegrating 4 mg PO Q6-8H PRN (Reason: nausea and vomiting) Qty: 30 0RF (DME) pen needle, diabetic [Pen Needle] 32 gauge x 5/32 needle See Rx Instructions .Route Qty: 400 0RF Rx Instructions: Use to inject up to 4x daily (DME) Accu-Chek Guide test strips Strip See Rx Instructions .Route Qty: 400 0RF Rx Instructions: Use to check up to 4x daily Referrals: Marco Saenz MD [Primary Care Provider] - Stand Alone Forms: Patient Portal/API
[2023-03-01 09:03] LABS: Add Manual Diff / Slide Review NO; Basophils Absolute Auto 0 /uL (0-100); Basophils Percent Auto 0.8 % (0-2); Eosinophils Absolute Auto 500 /uL (0-450); Eosinophils Percent Auto 9.7 % (2-4); Hematocrit 40.5 % (36-46); Hemoglobin 13.5 g/dL (12.0-16.0); Lymphocytes Absolute Auto 1500 /uL (1100-4500); Lymphocytes Percent Auto 31.4 % (25-40); Mean Corpuscular HGB Conc 33.3 % (30-36); Mean Corpuscular Hemoglobin 30.4 PG (26-34); Mean Corpuscular Volume 91.2 fL (80-100); Monocytes Absolute Auto 700 /uL (0-900); Monocytes Percent Auto 15.3 % (3-14); Neutrophils Absolute Auto 2100 /uL (1500-7000); Neutrophils Percent Auto 42.8 % (50-75); Platelet Count 281 X10^3/uL (150-400); Red Blood Cell Count 4.44 X10^6/uL (4.0-5.2); Red Cell Distribution Width 12.7 % (11.6-14.8); White Blood Cell Count 4.8 X10^3/uL (4.5-11.0)
[2023-03-01 09:04] LABS: HEMOLYSIS 24 (0-50)
[2023-03-01 09:08] LABS: Lactate (Lactic Acid) 1.1 mmol/L (0.7-2.1)
[2023-03-01 09:09] LABS: Alanine Aminotransferase 21 IU/L (<35); Albumin 4.2 g/dL (3.5-5.0); Albumin Globulin Ratio 1.2 (1.0-2.8); Alkaline Phosphatase 53 U/L (38-126); Aspartate Aminotransferase 30 IU/L (14-36); Bilirubin Total 0.5 mg/dL (0.2-1.3); Blood Urea Nitrogen 12 mg/dL (7-17); Calcium 9.2 mg/dL (8.4-10.2); Carbon Dioxide 22 mmol/L (22-32); Chloride 104 mmol/L (98-107); Estimated Glomerular Filt Rate > 60 mL/min (>60); Globulin 3.4 g/dL (1.7-4.1); Glucose 211 mg/dL (70-100); Potassium 4.2 mmol/L (3.4-5.1); Sodium 135 mmol/L (137-145); Total Protein 7.6 g/dL (6.3-8.2)
[2023-03-01] MEDS: SODIUM CHLORIDE 0.9% 1,000 ML 1000 ML IV (09:10)
[2023-03-01 09:21] LABS: Ketones (Beta-Hydroxybutyrate) 0.82 mmol/L (<0.27)
[2023-03-01 09:21] LABS: PO2 VBG 25 mmHg (35-45); pH VBG 7.41 (7.33-7.43)
[2023-03-01 09:22] LABS: Fractionated Inspired Oxygen 21; HCO3 VBG 23 mmol/L (24-28); Oxygen Saturation VBG 48 % (70-75); Total CO2 VBG 24 mmol/L (24-29)
[2023-03-01 10:16] LABS: RBC Urine None Seen (0-5/HPF); WBC Urine 0-1/HPF (0-5/HPF)
[2023-03-01 10:17] LABS: Bacteria Urine Occasional (0-1); Culture Indicated Urine Cult Not Indicated; Mucus Urine 1+ (Negative); Squamous Epithelial Cell Urine 0-1 /HPF (0-5/HPF)
== END 2023-03-01 10:15 | disposition home or self-care (01) ==
PROVIDERS: Emergency Provider Emergency Medicine; PCP Family Medicine
DX: E10.65 Type 1 diabetes mellitus with hyperglycemia (principal)
CPT/HCPCS: 36415; 80053; 81003; 81015; 81025; 82009; 82805; 82962; 83605; 85025; 87086; 96360; 99284

== ENCOUNTER → 2023-03-18 08:40 | Outpatient (CLI) | payer OTHER, SELFPAY ==
[2022-12-21 13:12] VITALS: BMI 20.1
[2023-03-18 10:23] LABS: Albumin 3.6 g/dL (3.5-5.0); BUN Creatinine Ratio 20.4 (6-22); Blood Urea Nitrogen 10 mg/dL (7-17); Calcium 9.4 mg/dL (8.4-10.2); Carbon Dioxide 27 mmol/L (22-32); Chloride 102 mmol/L (98-107); Cholesterol 208 mg/dL (140-199); Estimated Glomerular Filt Rate > 60 mL/min (>60); Glucose 148 mg/dL (70-100); HDL Cholesterol 47 mg/dL (40-60); HEMOLYSIS < 15 (0-50); LDL Cholesterol Calculated 131 mg/dL (<100); Phosphorous 3.7 mg/dL (2.5-4.5); Potassium 4.3 mmol/L (3.4-5.1); Sodium 134 mmol/L (137-145); Triglycerides 149 mg/dL (35-150)
[2023-03-18 15:16] LABS: Creatinine Urine Random 114.4 mg/dL
[2023-03-18 15:20] LABS: Microalbumin Urine Random < 0.6 mg/dL (0-1.6)
[2023-03-19 07:09] LABS: C Peptide 0.6 ng/mL (1.1-4.4)
== END ==
PROVIDERS: PCP Family Medicine; Referring Provider Student in an Organized Health Care Education/Training Program; Visit Provider Student in an Organized Health Care Education/Training Program
DX: E10.69 Type 1 diabetes mellitus with other specified complication (principal)
CPT/HCPCS: 36415; 80061; 80069; 82043; 82570; 84681

== ENCOUNTER → 2023-03-27 12:51 | Outpatient (CLI) | payer OTHER, SELFPAY ==
[2022-12-21 13:12] VITALS: BMI 20.1
--- NOTE | 2023-04-08 16:57 | DIAB.INIT ---
Initial Diabetes Education Assessment Name: Emmy Neri Date: 03/27/23 Time: 105-220p Dx: Diabetes Provider: Letty Emmy presents for initial dm visit. Recently admitted with DKA. Saw endo in Feb and confirmed not T1DM. Did not confirm T2 versus JOHNNIE. Emmy reports she is not interested in pump therapy. Prefers injection therapy at this time. Not injecting mealtime insulin q meal. Instead of using I:C provided by endo of 1:15, avoids carbs most meals. Indicates her goal is to have BG 250-260mg/dl HS due to how BG drops in evening. Unable to connect to tibdit CGM today, but elevations per samanta are mostly between 12p-12a with average BG of 184mg/dl. Weight of 110# recently, wants 102#, had been 120# last year reportedly. States she cut carbs and was able to lose weight. According to EMR, hair loss and irregular menstrual cycles. Has Metformin rx. GI distress hx with taking. Considering restarting. Physical Activity: No program. Worries about BG during exercise. Self-Monitoring Blood Glucose: Per CGM samanta: time in range >250mg/dl: 9% 181-250mg/dl: 40% in goal: 51% lows: 0% Avg BG 7 days: 184 mg/dl Reports she wakes with 120-140mg/dl. Highest BG per samanta between 12p-12a. Diabetes Medications: 17u Lantus HS Humalog Metformin (not taking) Pertinent Labs: HgA1c: 12/2022 10.4% 01/2023: 9.2% Past Medical History: (Last Updated 02/03/23 @ 13:01 by Marco Saenz MD) Alopecia 01/2023: followed by Derm, started on minoxidil Anxiety Borderline hypothyroidism Chronic seasonal allergic rhinitis Depression GERD (gastroesophageal reflux disease) Hair loss Irregular periods/menstrual cycles Lichen sclerosus et atrophicus of the vulva Moderate mixed hyperlipidemia not requiring statin therapy Urinary frequency UTI (urinary tract infection) Intervention: This participant was very receptive. Provided appropriate educational handouts. Discussed the following topics: Completed intake assessment. Discussed barriers to care. Pathophysiology of type 2, type 1, and JOHNNIE HgA1c, its correlation to blood glucose numbers, and rationale for goal BG goals Rule of 15 for tx of lows: juice or glucose tabs for travel Medication management: insulin vs orals action Created SMART goals for patient self-care and success. Goals: Check out glucose tabs for travel Make notes in CGM of food and insulin doses Get new CGm password to connect Try Metformin as rx'd again with dinner/food Follow-up: NIKITA MCKEON follow-up in 2-3 weeks Kristen Graham RDN, LINDA Certified Diabetes Care and Individual Small Group Instructor P: [phone] Thank you for this referral
== END ==
LOC: DIET 12:51
PROVIDERS: PCP Family Medicine; Referring Provider Family Medicine; Visit Provider Family Medicine
DX: E11.9 Type 2 diabetes mellitus without complications (principal); Z79.4 Long term (current) use of insulin; Z71.3 Dietary counseling and surveillance; E03.9 Hypothyroidism, unspecified; E78.5 Hyperlipidemia, unspecified
CPT/HCPCS: G0108

== ENCOUNTER → 2023-04-11 12:54 | Outpatient (CLI) | payer OTHER, SELFPAY ==
[2022-12-21 13:12] VITALS: BMI 20.1
--- NOTE | 2023-04-18 09:30 | DIAB.MNT ---
Initial Diabetes Medical Nutrition Therapy Assessment Name: Emmy Neri Date: 04/11/23 Time: 1220p Dx: Diabetes Emmy presents for nutrition visit regarding DM. States adriane has confirmed though she does not have T1, he plans to treat her as someone with T1. He discouraged Metformin, though this could potentially lower her insulin needs in this RD/CDCES opinion. Regardless, encouraged her to follow endo recs. Also reports endo advised that she should not be on more than 16u Lantus, however she is having elevations overnight on this dose. She self elected to increase to 17u and BG have improved. States she feels she is afraid to eat. States she does not want to inject insulin if she can avoid it, so she avoids carbs and even worries about foods with low carbs, ie broccoli. Endorses fears of both highs and lows, especially hypoglycemia understandably. States she is a perfectionist. Feels BG is very variable, which this RD agrees. Has questions about carb counting, eating out. States she has been more conscious of hyperglycemia due to our conversations previously about cardiovascular health risks with hyperglycemia. Anthropometrics: Ht: 5' Wt: 110# Physical Activity: went on a walk for the first time since diagnosis. Noticed BG did not change. Self-Monitoring Blood Glucose: Improved time in range since last visit. Close to goal of 75% or more time in range. Today: time in range >250mg/dl: 3% 181-250mg/dl: 27% in goal: 70% lows: 0% Avg BG 7 days: 164 mg/dl GMI: 7.2% Last visit: time in range >250mg/dl: 9% 181-250mg/dl: 40% in goal: 51% lows: 0% Avg BG 7 days: 184 mg/dl Diabetes Medications: Lantus 17u Humalo-4u Metformin (not taking) Pertinent Labs: HgA1c: 12/2022 10.4% 01/2023: 9.2% Past Medical History: (Last Updated 02/03/23 @ 13:01 by Marco Saenz MD) Alopecia 01/2023: followed by Derm, started on minoxidil Anxiety Borderline hypothyroidism Chronic seasonal allergic rhinitis Depression GERD (gastroesophageal reflux disease) Hair loss Irregular periods/menstrual cycles Lichen sclerosus et atrophicus of the vulva Moderate mixed hyperlipidemia not requiring statin therapy Urinary frequency UTI (urinary tract infection) Nutrition Rx: Carbohydrates: Meal:30g Snack:15-30g Nutrition Diagnosis: - Inadequate CHO intake r/t fear of hyperglycemia and avoiding mealtime insulin aeb pt report - Nutrition and food related knowledge deficit r/t new dx of dm aeb hga1c and pt report Intervention: This participant was very receptive. Provided appropriate educational handouts. Discussed the following topics: Completed intake assessment. Discussed barriers to care. Pathophysiology of T2DM HgA1c, its correlation to blood glucose numbers, and rationale for goal Plate Method, impact of macronutrients on blood sugar, meal timing, label reading, net carbs versus total carbs, pairing macronutrients and spreading out carbohydrates for better blood glucose management Recommended servings for carbohydrates at meals and snacks Eating out Correction 1:50 Balancing Dm and life, no one is perfect BG recs per ADA Physical activity and impact on BG (stress hormones impact) Created SMART goals for patient self-care and success. Goals: Check out glucose tabs for travel- met Make notes in CGM of food and insulin doses- not met Get new CGm password to connect - met Try Metformin as rx'd again with dinner/food- d/c Try evening snack to help reduce risk of lows overnight- new Correct BG >250mg/dl If eating low carb, dose insulin by total carbs Follow-up: NIKITA MCKEON follow-up in 2-3 weeks Kristen Graham RDN, LINDA Certified Diabetes Care and Gut Sorter P: [phone] Thank you for this referral
== END ==
LOC: DIET 12:55
PROVIDERS: PCP Family Medicine; Referring Provider Family Medicine; Visit Provider Family Medicine
DX: E11.9 Type 2 diabetes mellitus without complications (principal); Z79.4 Long term (current) use of insulin; Z71.3 Dietary counseling and surveillance
CPT/HCPCS: 97802

== ENCOUNTER → 2023-04-24 12:50 | Outpatient (CLI) | payer OTHER, SELFPAY ==
[2022-12-21 13:12] VITALS: BMI 20.1
[2023-04-24 15:09] LABS: Amylase 64 U/L (30-110); Lipase 67 U/L (23-300)
== END ==
PROVIDERS: PCP Family Medicine; Referring Provider Physician Assistant; Visit Provider Physician Assistant
DX: R10.9 Unspecified abdominal pain (principal); Z87.19 Personal history of other diseases of the digestive system
CPT/HCPCS: 36415; 82150; 83690

== ENCOUNTER → 2023-05-08 13:55 | Outpatient (CLI) | payer OTHER, SELFPAY ==
[2022-12-21 13:12] VITALS: BMI 20.1
--- NOTE | 2023-05-16 09:34 | DIAB.MNTFU ---
Addendum entered by Kristen Graham 05/16/23 10:21: Diagnosis not Type II Diabetes Diagnosis: Diabetes, unspecified Original Note: Follow-up Diabetes Medical Nutrition Therapy Assessment Name: Emmy Neri Date: 05/08/23 Time: 2-310p Dx: Type II Diabetes Emmy presents for Dm follow-up. States she spoke with endo over the phone earlier this week. States he rec'd insulin pump again. She is adamant at this time that she does not want this. We did review different technology options, ie tubeless pump v self adjusting pump v insulin patch v inhaler insulin. She is open to information but not wanting to go beyond MDI at this time. Has req a new referral for endo in [place]. Expressed frustrations with knowing her type of DM. 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 This RD thinks this could be likely. Has questions regarding priming insulin pens prior to injection. Questions regarding dosing for protein while on a very low carb diet. Waking from low alert due to setting low alarm at 90 for fear of hypoglycemia. Then correcting with 1 glucose tab and bar, which cause BG to go up to 180-185 at 2-[address]am. RD has some concern for disordered eating signs. Has h/o irregular menstruation and hair loss x 2 years. Self reports self as a perfectionist. Weight of 110# for last year reported. Prior to this wt of 125# x 10 years. Reports exhaustion. Has demonstrated concerns for weight gain. When discussed, states she had previously been screened for disordered eating purging as a child. States chiropractor diagnosed her with a pinched nerve that treatment seemed to impact her purging behaviors. Denies disordered eating due to other diagnosis that she reports explain her menstruation irregularities and hair loss, Lichen sclerosus. Anthropometrics: Ht: 5' Wt: 110# reported Physical Activity: 30min walk 1x per week after meal. Self-Monitoring Blood Glucose: Improved time in range since last visit. Goal of 75% or more time in range met. Taking low humalog amout per day compared to Lantus. Usual rec would be 5-6u TID with 17u Lantus; however she has reservations about taking more humalog at this time. This requires additional injections. If she decides to reduce Lantus due to running lower at night, she would most certainly need to increase humalog during the day to continue good bg management. Today: time in range >250mg/dl: 0% 181-250mg/dl: 12% in goal: 88% lows: 0% Avg BG 7 days: 147 mg/dl GMI: 6.8% Last visit: time in range >250mg/dl: 3% 181-250mg/dl: 27% in goal: 70% lows: 0% Avg BG 7 days: 164 mg/dl GMI: 7.2% Diabetes Medications: Lantus 17u Humalo-8u per day Metformin (not taking) Pertinent Labs: HgA1c: 12/2022 10.4% 01/2023: 9.2% Past Medical History: (Last Updated 04/24/23 @ 12:58 by Ary Romero PA-C) Alopecia 01/2023: followed by Derm, started on minoxidil Anxiety Borderline hypothyroidism Chronic seasonal allergic rhinitis Depression DKA (diabetic ketoacidosis) demise due to miscarriage GERD (gastroesophageal reflux disease) Hair loss Irregular periods/menstrual cycles Lichen sclerosus et atrophicus of the vulva Moderate mixed hyperlipidemia not requiring statin therapy Pancreatitis Urinary frequency UTI (urinary tract infection) Nutrition Rx: Carbohydrates: Meal:30g Snack:15-30g Nutrition Diagnosis: - Inadequate CHO intake r/t fear of hyperglycemia and avoiding mealtime insulin aeb pt report - continued - Nutrition and food related knowledge deficit r/t new dx of dm aeb hga1c and pt report - improved - Nutrition and food related knowledge deficit r/t over correction of 90mg/dl with tabs and bar aeb pt report Intervention: This participant was very receptive. Provided appropriate educational handouts. Discussed the following topics: Blood sugar review and trends. Discouraged very low carb diet Discussed how to potentially cover protein with insulin prn Reviewed dm tech Reviewed insulin needs and potential for her diabetes being type 3c Rec for hypoglycemia alerts and tx. Physical activity plan and progress Created SMART goals for patient self-care and success. Goals: Try evening snack to help reduce risk of lows overnight- not met Correct BG >250mg/dl- met If eating low carb, dose insulin by total carbs- met Look up Afrezza insulin- new Try protein drink or milk in night for lower BG 70-90mg/dl- new Consider moving low alert to 70-80mg/dl- new If continuously waking with a low, may reduce Lantus- new Follow-up: NIKITA MCKEON follow-up in 2-3 weeks Kristen Graham RDN, CDCES Certified Diabetes Care and Television Newscast Director P: [phone] Thank you for this referral
== END ==
PROVIDERS: PCP Family Medicine; Referring Provider Family Medicine; Visit Provider Family Medicine
DX: E11.9 Type 2 diabetes mellitus without complications (principal); Z79.4 Long term (current) use of insulin; Z71.3 Dietary counseling and surveillance
CPT/HCPCS: 97803

== ENCOUNTER → 2023-06-06 09:37 | Outpatient (CLI) | payer OTHER, SELFPAY ==
[2022-12-21 13:12] VITALS: BMI 20.1
[2023-06-06 11:27] LABS: Hemoglobin A1C% w Est Avg Glu 7.1 % (4.0-6.0)
[2023-06-06 11:36] LABS: Alanine Aminotransferase 29 IU/L (<35); Albumin Globulin Ratio 1.5 (1.0-2.8); Alkaline Phosphatase 48 U/L (38-126); Aspartate Aminotransferase 25 IU/L (14-36); Bilirubin Total 0.6 mg/dL (0.2-1.3); Blood Urea Nitrogen 16 mg/dL (7-17); Calcium 9.4 mg/dL (8.4-10.2); Carbon Dioxide 24 mmol/L (22-32); Chloride 106 mmol/L (98-107); Estimated Glomerular Filt Rate > 60 mL/min (>60); Globulin 2.7 g/dL (1.7-4.1); Glucose 130 mg/dL (70-100); HEMOLYSIS < 15 (0-50); Potassium 4.6 mmol/L (3.4-5.1); Sodium 137 mmol/L (137-145); Total Protein 6.7 g/dL (6.3-8.2)
== END ==
PROVIDERS: PCP Family Medicine; Referring Provider Family Medicine; Visit Provider Family Medicine
DX: E78.1 Pure hyperglyceridemia (principal); E11.9 Type 2 diabetes mellitus without complications; E78.5 Hyperlipidemia, unspecified
CPT/HCPCS: 36415; 80053; 83036

== ENCOUNTER → 2023-06-18 07:06 | Outpatient (CLI) | payer OTHER, SELFPAY ==
[2022-12-21 13:12] VITALS: BMI 20.1
[2023-06-18 09:27] LABS: Add Manual Diff / Slide Review NO; Basophils Absolute Auto 0 /uL (0-100); Basophils Percent Auto 0.5 % (0-2); Eosinophils Absolute Auto 600 /uL (0-450); Eosinophils Percent Auto 8.7 % (2-4); Hematocrit 39.7 % (36-46); Hemoglobin 13.3 g/dL (12.0-16.0); Lymphocytes Absolute Auto 1900 /uL (1100-4500); Lymphocytes Percent Auto 27.9 % (25-40); Mean Corpuscular HGB Conc 33.5 % (30-36); Mean Corpuscular Hemoglobin 30.1 PG (26-34); Mean Corpuscular Volume 89.6 fL (80-100); Monocytes Absolute Auto 500 /uL (0-900); Monocytes Percent Auto 7.8 % (3-14); Neutrophils Absolute Auto 3900 /uL (1500-7000); Neutrophils Percent Auto 55.1 % (50-75); Platelet Count 312 X10^3/uL (150-400); Red Blood Cell Count 4.44 X10^6/uL (4.0-5.2); Red Cell Distribution Width 13.4 % (11.6-14.8)
[2023-06-18 09:33] LABS: Hemoglobin A1C% w Est Avg Glu 6.9 % (4.0-6.0)
[2023-06-18 09:50] LABS: Alanine Aminotransferase 37 IU/L (<35); Albumin 3.9 g/dL (3.5-5.0); Albumin Globulin Ratio 1.3 (1.0-2.8); Alkaline Phosphatase 53 U/L (38-126); Aspartate Aminotransferase 34 IU/L (14-36); BUN Creatinine Ratio 27.1 (6-22); Bilirubin Total 0.7 mg/dL (0.2-1.3); Blood Urea Nitrogen 16 mg/dL (7-17); Calcium 9.3 mg/dL (8.4-10.2); Carbon Dioxide 28 mmol/L (22-32); Chloride 103 mmol/L (98-107); Cholesterol 153 mg/dL (140-199); Estimated Glomerular Filt Rate > 60 mL/min (>60); Globulin 2.9 g/dL (1.7-4.1); Glucose 163 mg/dL (70-100); HDL Cholesterol 77 mg/dL (40-60); HEMOLYSIS < 15 (0-50); LDL Cholesterol Calculated 67 mg/dL (<100); Potassium 4.3 mmol/L (3.4-5.1); Sodium 137 mmol/L (137-145); Total Protein 6.8 g/dL (6.3-8.2); Triglycerides 43 mg/dL (35-150)
[2023-06-18 10:02] LABS: Follicle Stimulating Hormone 6.38 mIU/mL
[2023-06-18 10:16] LABS: TSH w/ Reflex to FT4 0.67 uIU/mL (0.47-4.68)
[2023-06-18 10:18] LABS: Creatinine Urine Random 64.1 mg/dL
[2023-06-18 10:25] LABS: Microalbumin Urine Random < 0.6 mg/dL (0-1.6)
[2023-06-18 10:34] LABS: Vitamin B12 Reflex MMA if <400 447 pg/mL (239-931)
[2023-06-19 04:47] LABS: Apolipoprotein B 63 mg/dL (<90)
[2023-06-23 18:42] LABS: Percent Free Testosterone 2.27 % (0.50-2.80); Testosterone Free 0.42 ng/dL (0.10-0.85); Testosterone Total 18.5 ng/dL (.)
[2023-06-24 06:18] LABS: Estrogen 366 pg/mL (.)
== END ==
PROVIDERS: PCP Family Medicine; Referring Provider Family Medicine; Visit Provider Family Medicine
DX: F41.9 Anxiety disorder, unspecified (principal); F32.A Depression, unspecified; D64.9 Anemia, unspecified; E78.1 Pure hyperglyceridemia; E11.9 Type 2 diabetes mellitus without complications; E78.2 Mixed hyperlipidemia; E03.9 Hypothyroidism, unspecified; Z87.19 Personal history of other diseases of the digestive system
CPT/HCPCS: 36415; 80053; 80061; 82043; 82172; 82570; 82607; 82672; 83001; 83036; 84402; 84403; 84443; 85025

== ENCOUNTER → 2023-07-30 13:12 | Outpatient (CLI) | payer OTHER, SELFPAY ==
[2022-12-21 13:12] VITALS: BMI 20.1
--- NOTE | 2023-07-30 13:13 | DI.CT.S_ITS ---
PROCEDURE: CT SINUS SCREEN WO CON INDICATIONS: CHRONIC PANSINUSITIS TECHNIQUE: Noncontrast 3.0 mm axial images acquired from the frontal sinuses to the mid-sella, with coronal and sagittal reformats. For radiation dose reduction, the following was used: automated exposure control, adjustment of mA and/or kV according to patient size. COMPARISON: [facility], CT, CT SINUS SCREEN WO CON, 01/10/2023, 13:01. FINDINGS: Image quality: Excellent. Maxillary Sinuses: No bony remodeling or destruction. Moderate mucosal thickening bilaterally.. Ethmoid Air Cells: No bony remodeling or destruction. Near complete opacification bilaterally. Sphenoid Sinuses: No bony remodeling or destruction. Near complete opacification with frothy secretions bilaterally. Frontal Sinuses: Right frontal sinus is hypoplastic. The bilateral frontal sinuses are completely opacified. Ostiomeatal Complexes: Ostiomeatal complexes are opacified bilaterally. No Lis cells. Miscellaneous: Visualized intra-orbital contents are normal. No uche bullosa or paradoxical turbinate curvature. Mild leftward nasal septal deviation with spurring. IMPRESSION: Significant paranasal sinus disease as described above with near complete opacification of the ethmoid air cells and sphenoid sinuses with frothy secretions, suggesting acute sinusitis. Complete opacification of the frontal sinuses. Dictated by: Garrett Collier M.D. on 07/30/2023 at 15:40 Approved by: Garrett Collier M.D. on 07/30/2023 at 15:43
== END ==
LOC: CT 13:12
PROVIDERS: PCP Family Medicine; Referring Provider Otolaryngology; Visit Provider Otolaryngology
DX: J32.4 Chronic pansinusitis (principal); J33.9 Nasal polyp, unspecified; J34.89 Other specified disorders of nose and nasal sinuses; J30.1 Allergic rhinitis due to pollen; E10.9 Type 1 diabetes mellitus without complications; J34.2 Deviated nasal septum
CPT/HCPCS: 70486

== ENCOUNTER 2023-11-22 09:47 | Emergency (ER) | payer OTHER, SELFPAY ==
[2022-12-21 13:12] VITALS: BMI 20.1
[2023-11-22] VITALS (17 sets, daily range): BP systolic 98–137; BP diastolic 57–89; PULSE 78–101; RESP 14; TEMP 36.7; O2SAT 95–99; BMI 22.4
--- NOTE | 2023-11-22 09:59 | EKG_ITS ---
[address] [address] Test Date: 2023-11-22 Pat Name: Emmy Neri Department: [facility] Room: Gender: Female Residency Director: MICHOACANO : 1980 Requested By: Order Number: [id number] Reading MD: Darell Johnson MD Measurements Intervals Ensign Rate: 80 P: 64 CT: 112 QRS: 58 QRSD: 80 T: 43 QT: 388 QTc: 447 Interpretive Statements Normal sinus rhythm Electronically Signed On 11-22-2023 21:34:33 PDT by Darell Johnson MD
[2023-11-22 10:06] LABS: Appearance Urine UA CLEAR; Bilirubin Urine UA NEGATIVE (NEGATIVE); Color Urine UA YELLOW; Glucose Urine UA NEGATIVE (Negative); Ketones Urine UA NEGATIVE (NEGATIVE); Leukocyte Esterase Urine UA NEGATIVE (NEGATIVE); Nitrite Urine UA NEGATIVE (Negative); Occult Blood Urine UA NEGATIVE (Negative); Protein Urine UA NEGATIVE (Negative); Specific Gravity Urine UA <=1.005 (1.000-1.035); Urobilinogen Urine UA 0.2 E.U./dL (0.2)
[2023-11-22 10:07] LABS: Pregnancy Test Urine Negative (Negative)
[2023-11-22 10:09] LABS: Add Manual Diff / Slide Review NO; Basophils Absolute Auto 0 /uL (0-100); Basophils Percent Auto 0.4 % (0-2); Eosinophils Absolute Auto 400 /uL (0-450); Eosinophils Percent Auto 5.5 % (2-4); Hematocrit 40.4 % (36-46); Hemoglobin 13.5 g/dL (12.0-16.0); Lymphocytes Absolute Auto 1800 /uL (1100-4500); Lymphocytes Percent Auto 24.3 % (25-40); Mean Corpuscular HGB Conc 33.4 % (30-36); Mean Corpuscular Hemoglobin 30.7 PG (26-34); Monocytes Absolute Auto 800 /uL (0-900); Monocytes Percent Auto 10.1 % (3-14); Neutrophils Absolute Auto 4500 /uL (1500-7000); Neutrophils Percent Auto 59.7 % (50-75); Platelet Count 290 X10^3/uL (150-400); Red Blood Cell Count 4.39 X10^6/uL (4.0-5.2); Red Cell Distribution Width 12.5 % (11.6-14.8); White Blood Cell Count 7.5 X10^3/uL (4.5-11.0)
[2023-11-22 10:14] LABS: Bacteria Urine None Seen; Culture Indicated Urine Specimen Cultured; RBC Urine None Seen (0-5/HPF); Squamous Epithelial Cell Urine 1-5 /HPF (0-5/HPF); Urine Volume 10mL (spun); WBC Urine 1-5/HPF (0-5/HPF)
[2023-11-22 10:20] LABS: Alanine Aminotransferase 31 IU/L (<35); Albumin 4.4 g/dL (3.5-5.0); Albumin Globulin Ratio 1.3 (1.0-2.8); Alkaline Phosphatase 53 U/L (38-126); Aspartate Aminotransferase 29 IU/L (14-36); BUN Creatinine Ratio 21.8 (6-22); Bilirubin Total 0.5 mg/dL (0.2-1.3); Blood Urea Nitrogen 12 mg/dL (7-17); Calcium 8.9 mg/dL (8.4-10.2); Carbon Dioxide 23 mmol/L (22-32); Chloride 102 mmol/L (98-107); Estimated Glomerular Filt Rate > 60 mL/min (>60); Globulin 3.3 g/dL (1.7-4.1); Glucose 120 mg/dL (70-100); HEMOLYSIS < 15 (0-50); Lipase 96 U/L (23-300); Potassium 3.7 mmol/L (3.4-5.1); Sodium 134 mmol/L (137-145); Total Protein 7.7 g/dL (6.3-8.2)
--- NOTE | 2023-11-22 10:35 | ED.ABDPAIN ---
HPI - Abdominal Pain General Chief Complaint: Abdominal Pain Stated Complaint: dizzy, maybe UTI,Pancreatitis Time Seen by Provider: 11/22/23 10:11 Source: patient Mode of arrival: Ambulatory History of Present Illness HPI narrative: 43-year-old female with history of pancreatitis felt to be due to hypertriglyceridemia, taking anti lipid oral therapy, now with 2 days duration of increasing epigastric pain, nausea and retching, no black or red stools, no injury or trauma or new activities, no recent antibiotics, no fevers or chills. Denies painful urination or frequency of urination. Last bowel movement earlier yesterday unremarkable. No previous upper endoscopy, not taking any chronic antacid therapies. Also feels sinus congestion, awaiting sinus surgery next month, some dizziness, no focal weakness to face arm leg. Related Data Home Medications Medication Instructions Recorded Confirmed finasteride 5 mg tablet 5 mg PO DAILY 04/14/23 06/09/23 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 meter,continuous 06/09/23 06/09/23 (FreeStyle Josh 3 [place]) insulin lispro 100 unit/mL 1 sliding scale dose SUBCUT AC 08/05/23 subcutaneous pen Previous Rx's Medication Instructions Recorded blood sugar diagnostic (Accu-Chek #400 ea 12/25/22 Guide test strips) lancets 33 gauge (OneTouch Delica #200 ea 01/13/23 Plus Lancet) alprazolam 1 mg tablet 1 mg PO BID-TID PRN anxiety #45 06/09/23 tabs rosuvastatin 5 mg tablet (Crestor) 10 mg (2 x 5 mg) PO .QHS #180 tabs 08/19/23 insulin glargine 100 unit/mL (3 30 unit (0.3 mL) SUBCUT DAILY #15 09/04/23 mL) subcutaneous pen (Lantus mL Solostar U-100 Insulin) metformin 500 mg tablet,extended 1,000 mg (2 x 500 mg) PO BID #270 10/27/23 release 24 hr tabs venlafaxine 37.5 mg 37.5 mg PO DAILY #90 caps 10/27/23 capsule,extended release 24 hr pen needle, diabetic 32 gauge x #400 ea 11/18/23 (Pen Needle) cefdinir 300 mg capsule 300 mg PO BID 10 days #20 caps 11/22/23 ondansetron 4 mg disintegrating 4 mg PO Q6H PRN nausea and 11/22/23 tablet vomiting #10 tabs Allergies Allergy/AdvReac Type Severity Reaction Status Date / Time hydromorphone [HYDROMORPHONE] AdvReac Severe severe Verified 11/22/23 10:00 vomiting and dizziness levothyroxine AdvReac Intermediate Bloating Verified 11/22/23 10:00 amoxicillin [From AUGMENTIN] AdvReac Mild vomiting Verified 11/22/23 10:00 ciprofloxacin [From CIPRO] AdvReac Mild vomiting Verified 11/22/23 10:00 clavulanic acid AdvReac Mild vomiting Verified 11/22/23 10:00 [From AUGMENTIN] favian [FAVIAN] AdvReac Mild vomiting Verified 11/22/23 10:00 papaya [PAPAYA] AdvReac Mild vomiting Verified 11/22/23 10:00 tramadol [TRAMADOL] AdvReac Mild vomiting Verified 11/22/23 10:00 Review of Systems Review of Systems Narrative: see HPI Patient History Medical History (Updated 11/22/23 @ 16:52 by Mesfin Qureshi MD) Pancreatitis DKA (diabetic ketoacidosis) demise due to miscarriage UTI (urinary tract infection) Urinary frequency Hair loss Chronic seasonal allergic rhinitis Irregular periods/menstrual cycles Moderate mixed hyperlipidemia not requiring statin therapy Borderline hypothyroidism Alopecia Lichen sclerosus et atrophicus of the vulva Depression Anxiety GERD (gastroesophageal reflux disease) Surgical History History of nephrolithotomy with removal of calculi (2012) History of third molar tooth extraction (1998) Status post delivery (2008) Family History Mother Thyroid disease Father Heart valve disorder Social History household members: spouse and children Smoking Status: Former smoker alcohol intake: current Smoking Status: Former smoker tobacco type: cigarettes alcohol intake frequency: 0-2 drinks per day Substance Use Type: does not use Exam Narrative Exam Narrative: GENERAL: Well-developed patient, in mild distress. HEAD: Atraumatic. Normocephalic. EYES: Pupils equal round and reactive. Extraocular motions intact. No scleral icterus. No injection or drainage. ENT: Nose without bleeding, purulent drainage. Throat without erythema, tonsillar hypertrophy or exudate. Airway patent. NECK: Trachea midline. Non tender CARDIOVASCULAR: Regular rate and rhythm without murmurs, gallops, or rubs. RESPIRATORY: Clear to auscultation. Breath sounds equal bilaterally. No wheezes, rales, or rhonchi. GASTROINTESTINAL: Epigastric mild tenderness, no tenderness right upper quadrant or left upper quadrant or periumbilical, no ventral hernias obvious, nondistended, no guarding or rebound tenderness. EXTREMITIES: No edema or joint tenderness. BACK: Nontender without deformity or crepitance. No flank tenderness. NEURO: AOx3. Nonfocal gross motor exam SKIN: No rash or erythema of visible areas Initial Vital Signs Initial Vital Signs: Vital Signs Temperature 98.1 F 11/22/23 09:55 Pulse Rate 78 11/22/23 09:55 Respiratory Rate 14 11/22/23 09:55 Blood Pressure 137/89 11/22/23 09:55 Pulse Oximetry 98 11/22/23 09:55 Oxygen Delivery Method Room Air 11/22/23 09:55 Course Orders Ordered: ED Orders 11/22/23 14:31 CT head/brain wo con Stat Discontinued Medications Sodium Chloride (Normal Saline 0.9%) 1,000 mls @ 1,000 mls/hr IV BOLUS ONE Stop: 11/22/23 14:22 Last Infusion: 11/22/23 14:52 Dose: Infused Documented By: Admin: 11/22/23 13:41 Dose: 1,000 mls/hr Documented By: ASHLEY Sodium Chloride (Normal Saline 0.9%) 1,000 mls @ 1,000 mls/hr IV BOLUS ONE Stop: 11/22/23 16:13 Last Infusion: 11/22/23 16:27 Dose: Infused Documented By: Admin: 11/22/23 15:20 Dose: 1,000 mls/hr Documented By: MIKE Ceftriaxone Sodium 1,000 mg/ (Sodium Chloride) 100 mls @ 200 mls/hr IV NOW ONE Stop: 11/22/23 16:52 Last Infusion: 11/22/23 17:31 Dose: Infused Documented By: Admin: 11/22/23 17:00 Dose: 200 mls/hr Documented By: ASHLEY Lorazepam (Lorazepam 2 Mg/Ml Inj) 1 mg IV NOW ONE Stop: 11/22/23 16:45 Last Admin: 11/22/23 16:52 Dose: 1 mg Documented By: ASHLEY Meclizine HCl (Meclizine Hcl 12.5 Mg Tablet) 25 mg PO NOW ONE Stop: 11/22/23 14:32 Last Admin: 11/22/23 14:51 Dose: 25 mg Documented By: MIKE Metoclopramide HCl (Metoclopramide 10 Mg/2 Ml Inj) 10 mg IV NOW ONE Stop: 11/22/23 15:15 Last Admin: 11/22/23 15:20 Dose: 10 mg Documented By: MIKE Morphine Sulfate (Morphine 4 Mg/Ml Inj) 4 mg IV NOW ONE Stop: 11/22/23 11:08 Last Admin: 11/22/23 11:25 Dose: 4 mg Documented By: ASHLEY Morphine Sulfate (Morphine 4 Mg/Ml Inj) 4 mg IV NOW ONE Stop: 11/22/23 13:23 Last Admin: 11/22/23 13:41 Dose: 4 mg Documented By: ASHLEY Ondansetron HCl (Ondansetron 4 Mg/2 Ml Inj) 4 mg IV NOW PRN PRN Reason: Nausea And Vomiting Last Admin: 11/22/23 14:55 Dose: 4 mg Documented By: MIKE Ondansetron HCl (Ondansetron 4 Mg Odt) 4 mg PO NOW PRN PRN Reason: Nausea And Vomiting Ondansetron HCl (Ondansetron 4 Mg/2 Ml Inj) 4 mg IV NOW ONE Stop: 11/22/23 11:08 Last Admin: 11/22/23 11:25 Dose: 4 mg Documented By: ASHLEY Ondansetron HCl (Ondansetron 4 Mg/2 Ml Inj) 4 mg IV NOW ONE Stop: 11/22/23 13:23 Last Admin: 11/22/23 13:41 Dose: 4 mg Documented By: ASHLEY Pantoprazole Sodium (Pantoprazole 40 Mg Vial) 40 mg IV NOW ONE Stop: 11/22/23 11:08 Last Admin: 11/22/23 11:25 Dose: 40 mg Documented By: ASHLEY Vital Signs Vital signs: Vital Signs - 8 hr 11/22/23 13:45 11/22/23 13:45 11/22/23 14:00 Pulse Rate 94 H Blood Pressure 120/81 111/77 Pulse Oximetry 99 11/22/23 14:00 11/22/23 14:30 11/22/23 14:30 Pulse Rate 85 90 Blood Pressure 124/74 Pulse Oximetry 99 98 11/22/23 15:00 11/22/23 15:00 11/22/23 15:30 Pulse Rate 89 Blood Pressure 104/57 L 105/66 Pulse Oximetry 98 11/22/23 15:30 11/22/23 16:00 11/22/23 16:00 Pulse Rate 88 90 Blood Pressure 98/63 Pulse Oximetry 98 96 11/22/23 16:30 11/22/23 16:51 11/22/23 16:51 Pulse Rate 90 84 Blood Pressure 104/67 Pulse Oximetry 99 99 11/22/23 17:00 11/22/23 17:00 11/22/23 17:30 Pulse Rate 84 101 H Blood Pressure 105/66 Pulse Oximetry 99 98 11/22/23 17:30 11/22/23 18:00 11/22/23 18:06 Pulse Rate 90 95 H Blood Pressure 102/63 Pulse Oximetry 98 95 11/22/23 18:06 Pulse Rate Blood Pressure 101/60 Pulse Oximetry MDM - Abdominal Pain Lab Data Attestation: I reviewed the patient's lab results. 11/22/23 10:02 11/22/23 10:02 Labs: Lab Results 11/22/23 11/22/23 Range/Units 09:56 10:02 WBC 7.5 (4.5-11.0) X10^3/uL RBC 4.39 (4.0-5.2) X10^6/uL Hgb 13.5 (12.0-16.0) g/dL Hct 40.4 (36-46) % MCV 92.0 (80-100) fL MCH 30.7 (26-34) PG MCHC 33.4 (30-36) % RDW 12.5 (11.6-14.8) % Plt Count 290 (150-400) X10^3/uL Neut % (Auto) 59.7 (50-75) % Lymph % (Auto) 24.3 L (25-40) % [place] % (Auto) 10.1 (3-14) % Eos % (Auto) 5.5 H (2-4) % Baso % (Auto) 0.4 (0-2) % Neut # (Auto) 4500 (3870-0188) /uL Lymph # (Auto) 1800 (6213-1609) /uL [place] # (Auto) 800 (0-900) /uL Eos # (Auto) 400 (0-450) /uL Baso # (Auto) 0 (0-100) /uL Sodium 134 L (137-145) mmol/L Potassium 3.7 (3.4-5.1) mmol/L Chloride 102 (98-107) mmol/L Carbon Dioxide 23 (22-32) mmol/L BUN 12 (7-17) mg/dL Creatinine 0.55 (0.52-1.04) mg/dL Estimated GFR > 60 (>60) mL/min BUN/Creatinine Ratio 21.8 (6-22) Glucose 120 H (70-100) mg/dL Calcium 8.9 (8.4-10.2) mg/dL Total Bilirubin 0.5 (0.2-1.3) mg/dL AST 29 (14-36) IU/L ALT 31 (<35) IU/L Alkaline Phosphatase 53 (38-126) U/L Total Protein 7.7 (6.3-8.2) g/dL Albumin 4.4 (3.5-5.0) g/dL Globulin 3.3 (1.7-4.1) g/dL Albumin/Globulin Ratio 1.3 (1.0-2.8) Lipase 96 (23-300) U/L Urine Color Yellow Urine Appearance Clear Urine pH 6.0 (4.5-8.0) Ur Specific [place] <=1.005 (1.000-1.035) Urine Protein Negative (Negative) Urine Glucose (UA) Negative (Negative) g/dL Urine Ketones Negative (NEGATIVE) Urine Occult Blood Negative (Negative) Urine Nitrate Negative (Negative) Urine Bilirubin Negative (NEGATIVE) Urine Urobilinogen 0.2 (0.2) E.U./dL Ur Leukocyte Esterase Negative (NEGATIVE) Urine RBC None seen (0-5/HPF) Urine WBC 1-5/hpf (0-5/HPF) Ur Squamous Epith Cells 1-5 /hpf (0-5/HPF) Urine Bacteria None seen (None) Ur Culture Indicated? Specimen cultured Vol Urine Centrifuged 10ml (spun) Urine Test Negative (Negative) Imaging Data CT scan - abdomen/pelvis: Radiologist's Impression: [address] [address] [address] Scan Report Signed Patient: Emmy Neri MR#: [id number] : 1980 Acct:[id number] Age/Sex: 43 / F Date of Service: 11/22/23 Loc: ED Accession Number: [id number] Procedure: CT abdomen pelvis w con Ordering Provider: Mesfin Qureshi MD PROCEDURE: CT ABDOMEN PELVIS W CON INDICATIONS: abd pain TECHNIQUE: After the administration of intravenous contrast, axial sections acquired from the lung bases to the pubic symphysis. Coronal and sagittal reformats were performed. For radiation dose reduction, the following was used: automated exposure control, adjustment of mA and/or kV according to patient size. COMPARISON: [facility], CT, ABDOMEN/PELVIS WITH CONTRAST, 03/11/2013, 11:26. FINDINGS: Image quality: Diagnostic. Lower Chest: No significant findings. ABDOMEN: Liver: No solid mass. Gallbladder: No radiopaque gallstones or wall thickening. Biliary ducts: No biliary dilation. Pancreas: No ductal dilation. Spleen: Size is within normal limits. Adrenal Glands: No adrenal nodules. Kidneys and Ureters: No hydronephrosis. No solid mass. No complex renal cystic lesion which requires follow up. Stomach and Bowel: Normal colonic caliber, without significant wall thickening. At least 3 duodenal diverticula are shown with air-fluid levels but no wall thickening. The appendix is normal. Peritoneum: No abnormal intraperitoneal fluid. No free air. Ventral Wall: No significant ventral hernia. Abdominal Nodes: No retroperitoneal or mesenteric adenopathy by size criteria. Vessels: Aorta and inferior vena cava are normal in size. PELVIS: Pelvic Organs: There is a 3.4 cm left ovarian cyst, likely physiologic. Otherwise normal. Bladder: No bladder wall thickening, accounting for underdistention. Pelvic Nodes: No enlarged lymph nodes. Miscellaneous: No inguinal hernias are seen. Bones: No aggressive osseous abnormality. IMPRESSION: Duodenal diverticula, only one of which is identified on the previous exam, and which are distended with air-fluid levels. This is of uncertain clinical significance in the setting of an otherwise normal duodenum but may be contributing to the patient's symptoms. Dictated by: Germania Huntley M.D. on 11/22/2023 at 10:45 Approved by: Germania Huntley M.D. on 11/22/2023 at 10:54 CT scan - head: Radiologist's Impression: [address] [address] [address] Scan Report Signed Patient: Emmy Neri MR#: [id number] : 1980 Acct:[id number] Age/Sex: 43 / F Date of Service: 11/22/23 Loc: ED Accession Number: [id number] Procedure: CT head/brain wo con Ordering Provider: Mesfin Qureshi MD PROCEDURE: CT HEAD/BRAIN WO CON INDICATIONS: Dizziness TECHNIQUE: Noncontrast 4.5 mm thick angled axial sections acquired from the foramen magnum to the vertex, with coronal and sagittal reformats. For radiation dose reduction, the following was used: automated exposure control, adjustment of mA and/or kV according to patient size. COMPARISON: None. FINDINGS: Image quality: Diagnostic. CSF spaces: Basal cisterns are patent. No extra-axial fluid collections. Ventricles are normal in size and shape. Again seen is a left posterior fossa arachnoid cyst. Brain: No midline shift. No intracranial masses or hemorrhage. Leija-white matter interface is normal. Skull and face: Calvarium and visualized facial bones are intact, without suspicious lesions. Sinuses: There is moderate to severe mucoperiosteal thickening within the anterior ethmoid air cells and mild to moderate mucoperiosteal thickening within the sphenoid, maxillary, and frontal sinuses. IMPRESSION: No acute intracranial pathology. Moderate chronic pansinusitis. Dictated by: Germania Huntley M.D. on 11/22/2023 at 13:55 Approved by: Germania Huntley M.D. on 11/22/2023 at 13:58 ECG Data Attestation: I personally reviewed and interpreted this ECG as follows: Interpretation: Normal sinus rhythm with rate of 80. No obvious ST segment elevation or depression changes. Flat T-waves lead 3 noted, upright T-waves in leads 2 and F. ME 112, QRS 80, QTC 447. [facility] Narrative Medical decision making narrative: 43-year-old female history of hypertriglyceride-associated pancreatitis, epigastric discomfort, has tenderness on exam, no guarding or rebound tenderness, nondistended. Afebrile, sirs screen negative. White blood cell count, hemoglobin, LFTs, lipase unremarkable. Still having pain. IV morphine/Zofran, can not take Dilaudid, IV Protonix. CT abdomen and pelvis imaging ordered. CT abdomen and pelvis shows duodenal diverticula, only one was present on previous exam, other apparently are new, distended with air-fluid levels, of unclear significance, otherwise normal. No abscess or perforation or obstruction changes. 1430, case discussed with Dr. Aguilar of surgery, no significant finding with diverticular duodenal changes, no mention of inflammatory changes, just fluid present, no perforation or abscess, no obstruction changes. Discharge home. Results reviewed with patient, who had no questions about diverticular changes, however is concerned about persisting dizziness, wants CT head scanning, oral meclizine dose. CT head noncontrast study ordered. CT Head shows pansinusitis, no acute brain changes noted. See radiology report. IV Ceftriaxone, Rx for Cefdinir. Symptoms improved, follow-up with PCP if symptoms not improved, and with ENT as planned for sinus surgery Critical Care Time Critical Care Time Total Critical Care Time: 31 Attestation: The high probability of a clinically significant, sudden or life threatening deterioration of the [gastrointestinal, abdominopelvic, neurologic] system(s) required my full and direct attention, intervention and personal management. The aggregate critical care time was [31] minutes. This time is in addition to time spent performing reported procedures but includes the following: [x] Data Review and interpretation [x] Patient assessment and monitoring of vital signs [x] Documentation [x] Medication orders and management Discharge Plan Departure Patient Disposition: Home Clinical Impression: Abdominal pain, Diverticulum of duodenum, Dizziness, Sinusitis Activity Restrictions/Additional Instructions: Abdominal discomfort with nausea and vomiting and dizziness. History of sinus infection, awaiting sinus surgery next month. Screening labs unremarkable. Urinalysis negative. CT scan abdomen and pelvis showed small duodenal diverticuli with fluid, no inflammatory changes or obstruction or abscess changes. Case was discussed with general surgery who did not feel this is an emergent condition. You could consider antacid therapy such as omeprazole [id number]. You had persistent dizziness, CT scan was done, no brain injuries or masses, there was sinusitis changes throughout the sinuses. This might be chronic but might be related to your dizziness. Trial of antibiotics. You had taken cephalosporins in the past. IV ceftriaxone given, prescription for cefdinir further antibiotic course to take as an outpatient. 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 Recheck symptoms with your regular doctor if not improving in the next couple of days. Return to this/nearest emergency department for any change worsening symptoms or any concerns prior Prescriptions: New cefdinir 300 mg capsule 300 mg PO BID 10 Days Qty: 20 0RF ondansetron 4 mg tablet,disintegrating 4 mg PO Q6H PRN (Reason: nausea and vomiting) Qty: 10 0RF No Action finasteride 5 mg tablet 5 mg PO DAILY (DME) lancets [OneTouch Delica Plus Lancet] 33 gauge misc See Rx Instructions .Route Qty: 200 2RF Rx Instructions: Use to test four times daily rosuvastatin [Crestor] 5 mg tablet 10 mg PO .QHS Qty: 180 0RF insulin glargine [Lantus Solostar U-100 Insulin] 100 unit/mL (3 mL) insulin pen 30 unit SUBCUT DAILY Qty: 15 2RF (DME) pen needle, diabetic [Pen Needle] 32 gauge x 5/32 needle See Rx Instructions .Route Qty: 400 0RF Rx Instructions: Use to inject up to 4x daily (DME) FreeStyle Josh 3 [place] Misc See Rx Instructions .Route Rx Instructions: As directed alprazolam 1 mg tablet 1 mg PO BID-TID PRN (Reason: anxiety) Qty: 45 3RF metformin 500 mg tablet extended release 24 hr 1,000 mg PO BID Qty: 270 3RF venlafaxine 37.5 mg capsule,extended release 24hr 37.5 mg PO DAILY Qty: 90 3RF insulin lispro 100 unit/mL insulin pen 1 sliding scale dose SUBCUT AC Rx Instructions: Sliding scale: Give 1U of humalog per 15g of carbs Give extra units based on BG readings: 150-200: +1U of Humalog 200-250: +2U of Humalog 250-300: +3U of Humalog 300-350: +3U of Humalog 350-400: +5U of Humalog >400: +6U of Humalog (DME) Accu-Chek Guide test strips Strip See Rx Instructions .Route Qty: 400 0RF Rx Instructions: Use to check up to 4x daily Referrals: Marco aSenz MD [Primary Care Provider] - Stand Alone Forms: Patient Portal/API
--- NOTE | 2023-11-22 11:08 | DI.CT.S_ITS ---
PROCEDURE: CT ABDOMEN PELVIS W CON INDICATIONS: abd pain TECHNIQUE: After the administration of intravenous contrast, axial sections acquired from the lung bases to the pubic symphysis. Coronal and sagittal reformats were performed. For radiation dose reduction, the following was used: automated exposure control, adjustment of mA and/or kV according to patient size. COMPARISON: [facility], CT, ABDOMEN/PELVIS WITH CONTRAST, 03/11/2013, 11:26. FINDINGS: Image quality: Diagnostic. Lower Chest: No significant findings. ABDOMEN: Liver: No solid mass. Gallbladder: No radiopaque gallstones or wall thickening. Biliary ducts: No biliary dilation. Pancreas: No ductal dilation. Spleen: Size is within normal limits. Adrenal Glands: No adrenal nodules. Kidneys and Ureters: No hydronephrosis. No solid mass. No complex renal cystic lesion which requires follow up. Stomach and Bowel: Normal colonic caliber, without significant wall thickening. At least 3 duodenal diverticula are shown with air-fluid levels but no wall thickening. The appendix is normal. Peritoneum: No abnormal intraperitoneal fluid. No free air. Ventral Wall: No significant ventral hernia. Abdominal Nodes: No retroperitoneal or mesenteric adenopathy by size criteria. Vessels: Aorta and inferior vena cava are normal in size. PELVIS: Pelvic Organs: There is a 3.4 cm left ovarian cyst, likely physiologic. Otherwise normal. Bladder: No bladder wall thickening, accounting for underdistention. Pelvic Nodes: No enlarged lymph nodes. Miscellaneous: No inguinal hernias are seen. Bones: No aggressive osseous abnormality. IMPRESSION: Duodenal diverticula, only one of which is identified on the previous exam, and which are distended with air-fluid levels. This is of uncertain clinical significance in the setting of an otherwise normal duodenum but may be contributing to the patient's symptoms. Dictated by: Germania Huntley M.D. on 11/22/2023 at 10:45 Approved by: Germania Huntley M.D. on 11/22/2023 at 10:54
[2023-11-22] MEDS: PANTOPRAZOLE 40 MG VIAL IV (11:25)
[2023-11-22] MEDS: MORPHINE 4 MG/ML INJ IV ×2 (11:25→13:41)
[2023-11-22] MEDS: ONDANSETRON 4 MG/2 ML INJ IV ×3 (11:25→14:55)
[2023-11-22] MEDS: SODIUM CHLORIDE 0.9% 1,000 ML 1000 ML IV ×2 (13:41→15:20)
--- NOTE | 2023-11-22 14:31 | DI.CT.S_ITS ---
PROCEDURE: CT HEAD/BRAIN WO CON INDICATIONS: Dizziness TECHNIQUE: Noncontrast 4.5 mm thick angled axial sections acquired from the foramen magnum to the vertex, with coronal and sagittal reformats. For radiation dose reduction, the following was used: automated exposure control, adjustment of mA and/or kV according to patient size. COMPARISON: None. FINDINGS: Image quality: Diagnostic. CSF spaces: Basal cisterns are patent. No extra-axial fluid collections. Ventricles are normal in size and shape. Again seen is a left posterior fossa arachnoid cyst. Brain: No midline shift. No intracranial masses or hemorrhage. Leija-white matter interface is normal. Skull and face: Calvarium and visualized facial bones are intact, without suspicious lesions. Sinuses: There is moderate to severe mucoperiosteal thickening within the anterior ethmoid air cells and mild to moderate mucoperiosteal thickening within the sphenoid, maxillary, and frontal sinuses. IMPRESSION: No acute intracranial pathology. Moderate chronic pansinusitis. Dictated by: Germania Huntley M.D. on 11/22/2023 at 13:55 Approved by: Germania Huntley M.D. on 11/22/2023 at 13:58
[2023-11-22] MEDS: MECLIZINE HCL 12.5 MG TABLET 25 MG PO (14:51)
--- NOTE | 2023-11-22 15:15 | PC.NURSE ---
Patient vomited after receiving PO dose of meclazine. Patient reported seeing the two pills in her emesis. MD aware and new orders for IV Reglan received.
[2023-11-22] MEDS: METOCLOPRAMIDE 10 MG/2 ML INJ IV (15:20)
[2023-11-22] MEDS: LORazepam 2 MG/ML INJ 1 MG IV (16:52)
[2023-11-22] MEDS: cefTRIAXone 1,000 MG in SODIUM CHLORIDE 0.9% 100 ML 200 MG IV (17:00)
== END 2023-11-22 18:41 | disposition home or self-care (01) ==
PROVIDERS: Emergency Provider Emergency Medicine; PCP Family Medicine
DX: K57.10 Diverticulosis of small intestine without perforation or abscess without bleeding (principal); R10.13 Epigastric pain; R42 Dizziness and giddiness; J32.9 Chronic sinusitis, unspecified; Z79.899 Other long term (current) drug therapy; Z87.19 Personal history of other diseases of the digestive system
CPT/HCPCS: 36415; 70450; 74177; 80053; 81001; 81025; 83690; 85025; 87086; 93005; 93010; 96361; 96365; 96375; 96376; 99284; J0696; J2060; J2270; J2405; J2470; J2765; Q9967

== ENCOUNTER → 2024-01-04 11:17 | Outpatient (CLI) | payer OTHER, SELFPAY ==
[2022-12-21 13:12] VITALS: BMI 20.1
== END ==
PROVIDERS: PCP Family Medicine; Visit Provider Physician Assistant Medical
DX: N94.9 Unspecified condition associated with female genital organs and menstrual cycle (principal); R10.9 Unspecified abdominal pain
CPT/HCPCS: 87077; 87086; 87186; 87210

== ENCOUNTER → 2024-01-22 08:11 | Outpatient (CLI) | payer OTHER, SELFPAY ==
[2022-12-21 13:12] VITALS: BMI 20.1
[2024-01-22 09:08] LABS: Add Manual Diff / Slide Review NO; Basophils Absolute Auto 0 /uL (0-100); Basophils Percent Auto 0.4 % (0-2); Eosinophils Absolute Auto 200 /uL (0-450); Eosinophils Percent Auto 3.8 % (2-4); Hematocrit 38.8 % (36-46); Hemoglobin 12.9 g/dL (12.0-16.0); Lymphocytes Absolute Auto 1600 /uL (1100-4500); Lymphocytes Percent Auto 24.3 % (25-40); Mean Corpuscular HGB Conc 33.2 % (30-36); Mean Corpuscular Hemoglobin 31.2 PG (26-34); Monocytes Absolute Auto 500 /uL (0-900); Monocytes Percent Auto 7.1 % (3-14); Neutrophils Absolute Auto 4200 /uL (1500-7000); Neutrophils Percent Auto 64.4 % (50-75); Platelet Count 478 X10^3/uL (150-400); Red Blood Cell Count 4.12 X10^6/uL (4.0-5.2); Red Cell Distribution Width 13.3 % (11.6-14.8); White Blood Cell Count 6.4 X10^3/uL (4.5-11.0)
[2024-01-22 09:39] LABS: Alanine Aminotransferase 25 IU/L (<35); Albumin 4.2 g/dL (3.5-5.0); Albumin Globulin Ratio 1.7 (1.0-2.8); Alkaline Phosphatase 71 U/L (38-126); Aspartate Aminotransferase 27 IU/L (14-36); BUN Creatinine Ratio 14.8 (6-22); Bilirubin Total 0.4 mg/dL (0.2-1.3); Blood Urea Nitrogen 8 mg/dL (7-17); Calcium 9.5 mg/dL (8.4-10.2); Carbon Dioxide 25 mmol/L (22-32); Chloride 105 mmol/L (98-107); Estimated Glomerular Filt Rate > 60 mL/min (>60); Globulin 2.5 g/dL (1.7-4.1); Glucose 134 mg/dL (70-100); HEMOLYSIS < 15 (0-50); Potassium 4.6 mmol/L (3.4-5.1); Sodium 139 mmol/L (137-145); Total Protein 6.7 g/dL (6.3-8.2)
[2024-01-22 09:44] LABS: Hemoglobin A1C% w Est Avg Glu 6.9 % (4.0-6.0)
== END ==
PROVIDERS: PCP Family Medicine; Referring Provider Family Medicine; Visit Provider Family Medicine
DX: E13.9 Other specified diabetes mellitus without complications (principal); F41.9 Anxiety disorder, unspecified; F32.A Depression, unspecified; E78.1 Pure hyperglyceridemia; E78.2 Mixed hyperlipidemia
CPT/HCPCS: 36415; 80053; 83036; 85025

== ENCOUNTER → 2024-05-06 15:45 | Outpatient (CLI) | payer OTHER, SELFPAY ==
[2022-12-21 13:12] VITALS: BMI 20.1
--- NOTE | 2024-05-06 15:46 | DI.CT.S_ITS ---
PROCEDURE: CT SINUS SCREEN WO CON INDICATIONS: chronic sinusitis s/p sinus surgery TECHNIQUE: Noncontrast 3.0 mm axial images acquired from the frontal sinuses to the mid-sella, with coronal and sagittal reformats. For radiation dose reduction, the following was used: automated exposure control, adjustment of mA and/or kV according to patient size. COMPARISON: [facility], CT, CT SINUS SCREEN WO CON, 07/30/2023, 13:19. FINDINGS: Image quality: Excellent. Maxillary Sinuses: No bony remodeling or destruction. Moderate mucosal thickening on the right. Mild mucosal thickening inferiorly on the left is improved. Ethmoid Air Cells: No bony remodeling or destruction. Near complete opacification of the ethmoid air cells. Postoperative changes are noted. Sphenoid Sinuses: Postoperative changes. Mild to moderate mucosal thickening is improved compared to prior. Frontal Sinuses: Right frontal sinuses hypoplastic and opacified. Left frontal sinus is clear, improved compared to prior. Ostiomeatal Complexes: Bilateral maxillary antrostomies.. No Lis cells. Miscellaneous: Visualized intra-orbital contents are normal. No uche bullosa or paradoxical turbinate curvature. Mild leftward nasal septal deviation with spurring. IMPRESSION: Postoperative changes from prior endoscopic sinonasal surgery. Again seen significant paranasal sinus disease as described above which is mildly improved compared to prior. Dictated by: Garrett Collier M.D. on 05/06/2024 at 16:39 Approved by: Garrett Collier M.D. on 05/06/2024 at 16:42
== END ==
PROVIDERS: PCP Family Medicine; Referring Provider Family Medicine; Visit Provider Family Medicine
DX: J32.8 Other chronic sinusitis (principal); J30.2 Other seasonal allergic rhinitis; R42 Dizziness and giddiness
CPT/HCPCS: 70486

== ENCOUNTER → 2024-07-23 07:46 | Outpatient (CLI) | payer OTHER, SELFPAY ==
[2022-12-21 13:12] VITALS: BMI 20.1
[2024-07-23 08:27] LABS: Add Manual Diff / Slide Review NO; Basophils Absolute Auto 100 /uL (0-100); Basophils Percent Auto 0.8 % (0-2); Eosinophils Absolute Auto 500 /uL (0-450); Eosinophils Percent Auto 6.8 % (2-4); Hematocrit 41.7 % (36-46); Hemoglobin 14.1 g/dL (12.0-16.0); Lymphocytes Absolute Auto 1800 /uL (1100-4500); Lymphocytes Percent Auto 27.6 % (25-40); Mean Corpuscular HGB Conc 33.8 % (30-36); Mean Corpuscular Hemoglobin 32.1 PG (26-34); Mean Corpuscular Volume 95.1 fL (80-100); Monocytes Absolute Auto 600 /uL (0-900); Monocytes Percent Auto 9.2 % (3-14); Neutrophils Absolute Auto 3700 /uL (1500-7000); Neutrophils Percent Auto 55.6 % (50-75); Platelet Count 256 X10^3/uL (150-400); Red Blood Cell Count 4.39 X10^6/uL (4.0-5.2); Red Cell Distribution Width 13.1 % (11.6-14.8); White Blood Cell Count 6.7 X10^3/uL (4.5-11.0)
[2024-07-23 08:42] LABS: Hemoglobin A1C% w Est Avg Glu 6.7 % (4.0-6.0)
[2024-07-23 10:17] LABS: Follicle Stimulating Hormone 12.2 mIU/mL
[2024-07-23 10:43] LABS: Alanine Aminotransferase 116 IU/L (<35); Albumin 4.3 g/dL (3.5-5.0); Albumin Globulin Ratio 1.7 (1.0-2.8); Alkaline Phosphatase 71 U/L (38-126); Aspartate Aminotransferase 60 IU/L (14-36); BUN Creatinine Ratio 18.9 (6-22); Bilirubin Total 0.5 mg/dL (0.2-1.3); Blood Urea Nitrogen 10 mg/dL (7-17); Calcium 9.5 mg/dL (8.4-10.2); Carbon Dioxide 24 mmol/L (22-32); Chloride 100 mmol/L (98-107); Cholesterol 173 mg/dL (140-199); Estimated Glomerular Filt Rate > 60 mL/min (>60); Globulin 2.5 g/dL (1.7-4.1); Glucose 186 mg/dL (70-99); HDL Cholesterol 53 mg/dL (40-60); HEMOLYSIS < 15 (0-50); LDL Cholesterol Calculated 95 mg/dL (<100); Potassium 4.3 mmol/L (3.4-5.1); Sodium 137 mmol/L (137-145); Total Protein 6.8 g/dL (6.3-8.2); Triglycerides 126 mg/dL (35-150)
== END ==
PROVIDERS: PCP Family Medicine; Referring Provider Family Medicine; Visit Provider Family Medicine
DX: E13.65 Other specified diabetes mellitus with hyperglycemia (principal); F41.9 Anxiety disorder, unspecified; F32.A Depression, unspecified; E78.1 Pure hyperglyceridemia; E78.5 Hyperlipidemia, unspecified; D64.9 Anemia, unspecified; L65.9 Nonscarring hair loss, unspecified; Z79.4 Long term (current) use of insulin
CPT/HCPCS: 36415; 80053; 80061; 82672; 83001; 83036; 84443; 85025

== ENCOUNTER 2024-12-18 13:45 | Inpatient (IN) | payer OTHER, SELFPAY ==
[2022-12-21 13:12] VITALS: BMI 20.1
[2024-12-18] VITALS (14 sets, daily range): BP systolic 111–155; BP diastolic 60–93; PULSE 79–119; RESP 14–20; TEMP 36.5–36.9; O2SAT 96–100; BMI 25.4; BMI 27.7
--- NOTE | 2024-12-18 14:18 | DI.CT.S_ITS ---
PROCEDURE: CT ABDOMEN PELVIS W CON INDICATIONS: pancreatitis TECHNIQUE: After the administration of intravenous contrast, axial sections acquired from the lung bases to the pubic symphysis. Coronal and sagittal reformats were performed. For radiation dose reduction, the following was used: automated exposure control, adjustment of mA and/or kV according to patient size. COMPARISON: [facility], CT, CT ABDOMEN PELVIS W CON, 11/22/2023, 11:21. FINDINGS: Image quality: Diagnostic. Lower Chest: No significant findings. ABDOMEN: Liver: No solid mass. There is diffuse hypoattenuation of the liver parenchyma relative to the spleen compatible with hepatic steatosis. Gallbladder: Gallbladder is decompressed. Mild gallbladder wall thickening likely inflammatory changes secondary to adjacent pancreatitis. Biliary ducts: No biliary dilation. Pancreas: There is homogeneous pancreatic parenchymal enhancement. Possible intraluminal filling defect of the superior mesenteric vein near the junction with the splenic vein. Moderate peripancreatic inflammatory changes most pronounced over the pancreatic head and uncinate process. No organized fluid collection seen. Spleen: Size is within normal limits. Adrenal Glands: No adrenal nodules. Kidneys and Ureters: No hydronephrosis. No solid mass. No complex renal cystic lesion which requires follow up. Stomach and Bowel: Normal colonic caliber, without significant wall thickening. Scattered colonic diverticula without acute inflammation. No evidence for small bowel obstruction or associated inflammatory changes. Normal appendix. Peritoneum: No abnormal intraperitoneal fluid. No free air. Ventral Wall: No significant ventral hernia. Abdominal Nodes: No retroperitoneal or mesenteric adenopathy by size criteria. Vessels: Aorta and inferior vena cava are normal in size. PELVIS: Pelvic Organs: Suggestion of bicornuate uterine morphology. Bladder: No bladder wall thickening, accounting for underdistention. Pelvic Nodes: No enlarged lymph nodes. Miscellaneous: No inguinal hernias are seen. Bones: No aggressive osseous abnormality. Visualized osseous structures appear intact without acute fracture or focal destructive lesion. No acute compression fractures of the imaged spine. IMPRESSION: Findings compatible with acute pancreatitis of the pancreatic head and uncinate process with suggestion of mild thrombosis involving segment of the superior mesenteric vein near the junction with the splenic vein. No other findings to suggest necrotizing pancreatitis. No organized fluid collection seen. Diffuse hepatic steatosis. Other chronic/non-acute findings as above. Findings were discussed with Dr. Christina at 1455 hrs. Dictated by: Jerad Jacobo M.D. on 12/18/2024 at 14:38 Approved by: Jerad Jacobo M.D. on 12/18/2024 at 14:55
[2024-12-18 14:21] LABS: Add Manual Diff / Slide Review NO; Hematocrit 44.3 % (36-46); Hemoglobin 14.8 g/dL (12.0-16.0); Lymphocytes Absolute Auto 900 /uL (1100-4500); Mean Corpuscular HGB Conc 33.4 % (30-36); Mean Corpuscular Hemoglobin 32.1 PG (26-34); Mean Corpuscular Volume 96.2 fL (80-100); Platelet Count 236 X10^3/uL (150-400)
[2024-12-18 14:35] LABS: Alanine Aminotransferase 119 IU/L (<35); Albumin 4.6 g/dL (3.5-5.0); Albumin Globulin Ratio 1.4 (1.0-2.8); Alkaline Phosphatase 81 U/L (38-126); Blood Urea Nitrogen 10 mg/dL (7-17); Calcium 9.3 mg/dL (8.4-10.2); Carbon Dioxide 20 mmol/L (22-32); Chloride 98 mmol/L (98-107); Estimated Glomerular Filt Rate > 60 mL/min (>60); Globulin 3.3 g/dL (1.7-4.1); Glucose 167 mg/dL (70-99); HEMOLYSIS < 15 (0-50); Lipase 1520 U/L (23-300); Potassium 4.0 mmol/L (3.4-5.1); Sodium 134 mmol/L (137-145); Total Protein 7.9 g/dL (6.3-8.2)
[2024-12-18] MEDS: KETOROLAC 30 MG/ML VIAL 15 MG IV (14:39)
[2024-12-18] MEDS: LACTATED RINGERS 1,000 ML 1000 ML IV ×2 (14:47→15:35)
[2024-12-18] MEDS: ONDANSETRON 4 MG/2 ML INJ IV ×2 (14:47→19:58)
--- NOTE | 2024-12-18 15:10 | ED.ABDPAIN ---
HPI - Abdominal Pain General Chief Complaint: Abdominal Pain Stated Complaint: pancreatitis Time Seen by Provider: 12/18/24 14:18 Source: patient Mode of arrival: Ambulatory History of Present Illness HPI narrative: 44-year-old female history of pancreatitis and diabetes felt due to be hyper triglyceridemia presents with few days of increasing epigastric pain and nausea and no back pain vomiting diarrhea constipation hematuria fever chills body aches or urinary complaint. She denies chest pain shortness of breath dyspnea on exertion recent heavy alcohol use. Other than what is stated 14 point review of system is negative. 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 #1 ea 02/23/24 (FreeStyle Josh 3 [place]) semaglutide 0.25 mg or 0.5 mg (2 0.25 mg (0.368 mL) SUBCUT QWEEK #3 02/23/24 mg/3 mL) subcutaneous pen injector mL alprazolam 1 mg tablet 1 mg PO BID-TID PRN anxiety #45 02/24/24 tabs pen needle, diabetic 32 gauge x #400 ea 03/23/24 (Pen Needle) clobetasol 0.05 % topical ointment See Rx Instructions .Route 04/15/24 .COMPLEX #30 grams cefuroxime axetil 500 mg tablet 500 mg PO BID #20 tabs 04/27/24 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 sensor (FreeStyle #3 ea 05/18/24 Josh 3 Plus Sensor device) triamcinolone acetonide 0.1 % 1 applic topical BID #30 grams 08/05/24 topical cream glucagon 1 mg solution for 1 mg SUBCUT Q20M PRN hypoglycemia 08/12/24 injection (Glucagon Emergency Kit) #1 ea lancets 33 gauge ([employer] [place] #200 ea 08/12/24 Plus Lancet) insulin glargine 100 unit/mL (3 30 unit (0.3 mL) SUBCUT DAILY #15 09/11/24 mL) subcutaneous pen (Lantus mL Solostar U-100 Insulin) insulin lispro 100 unit/mL 1 sliding scale dose SUBCUT 10/18/24 subcutaneous pen TIDWMEAL #15 mL rosuvastatin 5 mg tablet 10 mg (2 x 5 mg) PO .QHS #180 tabs 10/21/24 venlafaxine 37.5 mg 37.5 mg PO DAILY #90 caps 10/29/24 capsule,extended release 24 hr Allergies Allergy/AdvReac Type Severity Reaction Status Date / Time hydromorphone (HYDROMORPHONE) AdvReac Severe severe Verified 12/18/24 14:00 vomiting and dizziness levothyroxine AdvReac Intermediate Bloating Verified 12/18/24 14:00 amoxicillin (From AUGMENTIN) AdvReac Mild vomiting Verified 12/18/24 14:00 ciprofloxacin (From CIPRO) AdvReac Mild vomiting Verified 12/18/24 14:00 clavulanic acid (From AdvReac Mild vomiting Verified 12/18/24 14:00 AUGMENTIN) favian (FAVIAN) AdvReac Mild vomiting Verified 12/18/24 14:00 papaya (PAPAYA) AdvReac Mild vomiting Verified 12/18/24 14:00 tramadol (TRAMADOL) AdvReac Mild vomiting Verified 12/18/24 14:00 Review of Systems Review of Systems ROS Unobtainable: All systems reviewed & are unremarkable except as noted in HPI and below Patient History Medical History (Updated 12/18/24 @ 16:32 by Darell Christina DO) Other specified diabetes mellitus with hyperglycemia Pancreatitis DKA (diabetic ketoacidosis) demise due to miscarriage UTI (urinary tract infection) Urinary frequency Hair loss Chronic seasonal allergic rhinitis Irregular periods/menstrual cycles Moderate mixed hyperlipidemia not requiring statin therapy Borderline hypothyroidism Alopecia Lichen sclerosus et atrophicus of the vulva Depression Anxiety GERD (gastroesophageal reflux disease) Surgical History History of nephrolithotomy with removal of calculi (2012) History of third molar tooth extraction (1998) Status post delivery (2008) Family History Mother Thyroid disease Father Heart valve disorder Social History household members: spouse and children alcohol intake: current Smoking Status: Former smoker tobacco type: cigarettes alcohol intake frequency: 0-2 drinks per day Exam Narrative Exam Narrative: GENERAL: [44] year old patient appears stated age. Well-developed patient, in mild distress. HEAD: Atraumatic. Normocephalic. EYES: Pupils equal round and reactive. Extraocular motions intact. No scleral icterus. No injection or drainage. ENT: Nose without bleeding, purulent drainage. Throat without erythema, tonsillar hypertrophy or exudate. Airway patent. NECK: Trachea midline. Non tender CARDIOVASCULAR: Regular rate and rhythm without murmurs, gallops, or rubs. RESPIRATORY: Clear to auscultation. Breath sounds equal bilaterally. No wheezes, rales, or rhonchi. GASTROINTESTINAL: Abdomen soft, epigastric TTP but no r/r/g, nondistended. EXTREMITIES: No edema or joint tenderness. BACK: Nontender without deformity or crepitance. No flank tenderness. NEURO: AOx3. SKIN: No rash or erythema of visible areas Initial Vital Signs Initial Vital Signs: Vital Signs Temperature 98.5 F 12/18/24 13:55 Pulse Rate 111 H 12/18/24 13:55 Respiratory Rate 18 12/18/24 13:55 Blood Pressure 131/93 H 12/18/24 13:55 Pulse Oximetry 96 12/18/24 13:55 Oxygen Delivery Method Room Air 12/18/24 13:55 Course Orders Ordered: ED Orders 12/18/24 14:10 Complete Blood Count AUTO DIFF Stat Comprehensive Metabolic Panel Stat Lipase Stat 12/18/24 14:18 CT abdomen pelvis w con Stat Lactated Ringer's (Lactated Ringers) 1,000 mls @ 1,000 mls/hr IV BOLUS ONE Stop: 12/18/24 15:17 Last Admin: 12/18/24 14:47 Dose: 1,000 mls/hr Documented By: AGGIE Ondansetron HCl (Ondansetron 4 Mg/2 Ml Inj) 4 mg IV NOW PRN PRN Reason: Nausea And Vomiting Last Admin: 12/18/24 14:47 Dose: 4 mg Documented By: AI Ondansetron HCl (Ondansetron 4 Mg Odt) 4 mg PO NOW PRN PRN Reason: Nausea And Vomiting Discontinued Medications Ketorolac Tromethamine (Ketorolac 30 Mg/Ml Vial) 15 mg IV NOW ONE Stop: 12/18/24 14:19 Last Admin: 12/18/24 14:39 Dose: 15 mg Documented By: AGGIE Vital Signs Vital signs: Vital Signs - 8 hr 12/18/24 13:55 12/18/24 14:03 12/18/24 14:04 Temperature 98.5 F Pulse Rate 111 H 114 H Respiratory Rate 18 Blood Pressure 131/93 H 155/60 H Pulse Oximetry 96 97 Oxygen Delivery Method Room Air 12/18/24 14:04 12/18/24 14:33 Temperature Pulse Rate 102 H 119 H Respiratory Rate 20 Blood Pressure Pulse Oximetry 97 100 Oxygen Delivery Method MDM - Abdominal Pain Lab Data 12/18/24 14:10 12/18/24 14:10 Labs: Lab Results 12/18/24 Range/Units 14:10 WBC 5.1 (4.5-11.0) X10^3/uL RBC 4.60 (4.0-5.2) X10^6/uL Hgb 14.8 (12.0-16.0) g/dL Hct 44.3 (36-46) % MCV 96.2 (80-100) fL MCH 32.1 (26-34) PG MCHC 33.4 (30-36) % RDW 12.6 (11.6-14.8) % Plt Count 236 (150-400) X10^3/uL Neut % (Auto) 67.9 (50-75) % Lymph % (Auto) 17.6 L (25-40) % [place] % (Auto) 8.1 (3-14) % Eos % (Auto) 5.6 H (2-4) % Baso % (Auto) 0.8 (0-2) % Neut # (Auto) 3500 (6395-5387) /uL Lymph # (Auto) 900 L (1091-4384) /uL [place] # (Auto) 400 (0-900) /uL Eos # (Auto) 300 (0-450) /uL Baso # (Auto) 0 (0-100) /uL Sodium 134 L (137-145) mmol/L Potassium 4.0 (3.4-5.1) mmol/L Chloride 98 (98-107) mmol/L Carbon Dioxide 20 L (22-32) mmol/L BUN 10 (7-17) mg/dL Creatinine 0.60 (0.52-1.04) mg/dL Estimated GFR > 60 (>60) mL/min BUN/Creatinine Ratio 16.7 (6-22) Glucose 167 H (70-99) mg/dL Calcium 9.3 (8.4-10.2) mg/dL Total Bilirubin 0.8 (0.2-1.3) mg/dL AST 107 H (14-36) IU/L ALT 119 H (<35) IU/L Alkaline Phosphatase 81 (38-126) U/L Total Protein 7.9 (6.3-8.2) g/dL Albumin 4.6 (3.5-5.0) g/dL Globulin 3.3 (1.7-4.1) g/dL Albumin/Globulin Ratio 1.4 (1.0-2.8) Lipase 1520 H (23-300) U/L Imaging Data CT scan - abdomen/pelvis: Radiologist's Impression: [place] [address] CT Scan Report Signed Patient: Emmy Neri MR#: [id number] : 1980 Acct:[id number] Age/Sex: 44 / F Date of Service: 12/18/24 Loc: ED Accession Number: [id number] Procedure: CT abdomen pelvis w con Ordering Provider: Darell Christina D.O. PROCEDURE: CT ABDOMEN PELVIS W CON INDICATIONS: pancreatitis TECHNIQUE: After the administration of intravenous contrast, axial sections acquired from the lung bases to the pubic symphysis. Coronal and sagittal reformats were performed. For radiation dose reduction, the following was used: automated exposure control, adjustment of mA and/or kV according to patient size. COMPARISON: [facility], CT, CT ABDOMEN PELVIS W CON, 11/22/2023, 11:21. FINDINGS: Image quality: Diagnostic. Lower Chest: No significant findings. ABDOMEN: Liver: No solid mass. There is diffuse hypoattenuation of the liver parenchyma relative to the spleen compatible with hepatic steatosis. Gallbladder: Gallbladder is decompressed. Mild gallbladder wall thickening likely inflammatory changes secondary to adjacent pancreatitis. Biliary ducts: No biliary dilation. Pancreas: There is homogeneous pancreatic parenchymal enhancement. Possible intraluminal filling defect of the superior mesenteric vein near the junction with the splenic vein. Moderate peripancreatic inflammatory changes most pronounced over the pancreatic head and uncinate process. No organized fluid collection seen. Spleen: Size is within normal limits. Adrenal Glands: No adrenal nodules. Kidneys and Ureters: No hydronephrosis. No solid mass. No complex renal cystic lesion which requires follow up. Stomach and Bowel: Normal colonic caliber, without significant wall thickening. Scattered colonic diverticula without acute inflammation. No evidence for small bowel obstruction or associated inflammatory changes. Normal appendix. Peritoneum: No abnormal intraperitoneal fluid. No free air. Ventral Wall: No significant ventral hernia. Abdominal Nodes: No retroperitoneal or mesenteric adenopathy by size criteria. Vessels: Aorta and inferior vena cava are normal in size. PELVIS: Pelvic Organs: Suggestion of bicornuate uterine morphology. Bladder: No bladder wall thickening, accounting for underdistention. Pelvic Nodes: No enlarged lymph nodes. Miscellaneous: No inguinal hernias are seen. Bones: No aggressive osseous abnormality. Visualized osseous structures appear intact without acute fracture or focal destructive lesion. No acute compression fractures of the imaged spine. IMPRESSION: Findings compatible with acute pancreatitis of the pancreatic head and uncinate process with suggestion of mild thrombosis involving segment of the superior mesenteric vein near the junction with the splenic vein. No other findings to suggest necrotizing pancreatitis. No organized fluid collection seen. Diffuse hepatic steatosis. Other chronic/non-acute findings as above. Findings were discussed with Dr. Christina at 1455 hrs. [facility] Narrative Medical decision making narrative: All lab work, vital signs, nurse triage note, medication list, previous ER visits, and all imaging studies reviewed. CT abdomen and pelvis findings compatible with acute pancreatitis of the pancreatic head and uncinate process with suggestion of thrombosis involving the segment of the superior mesenteric vein near the junction of the splenic vein. No other findings to suggest necrotizing pancreatitis. No organized fluid collection seen. Diffuse hepatic steatosis. Patient given fluids and morphine here. Case discussed with Dr. Perez who stated no acute intervention at this time. Case discussed with Dr. Slater who has graciously accepted the patient for inpatient admission. Discharge Plan Departure Patient Disposition: Admitted as Observation Clinical Impression: Acute pancreatitis Qualifiers: Pancreatitis type: other Acute pancreatitis complication: no infection or necrosis Qualified Code(s): K85.80 - Other acute pancreatitis without necrosis or infection Admit Date/Time: 12/18/24 16:30 Admit Provider: Varghese Valencia
[2024-12-18] MEDS: MORPHINE 4 MG/ML INJ IV ×2 (15:36→20:29)
[2024-12-18] MEDS: SODIUM CHLORIDE 0.9% 1,000 ML 100 ML IV (17:38)
--- NOTE | 2024-12-18 20:11 | P.HP_ITS ---
History of Present Illness History of Present Illness Date Patient Seen: 12/18/24 Chief complaint: pancreatitis Narrative: Chief complaint: Three days of nausea vomiting with recurrent pancreatitis idiopathic type History of present illness: 44-year-old female with insulin dependent diabetes although never has had DKA is history of pancreatitis 2 years ago which took 4 days to resolve has not had any significant problems since does not follow strength that free diet and occasionally drinks alcohol but has not had any alcohol in the last 10 days. Has progressive epigastric pain nausea for past 3 days Findings emergency department significant for lipase of 1600, pancreatitis and superior mesenteric vein thrombosis mild Pancreas: There is homogeneous pancreatic parenchymal enhancement. Possible intraluminal filling defect of the superior mesenteric vein near the junction with the splenic vein. Moderate peripancreatic inflammatory changes most pronounced over the pancreatic head and uncinate process. No organized fluid collection seen. Past medical history: Pancreatitis DKA (diabetic ketoacidosis) demise due to miscarriage UTI (urinary tract infection) Urinary frequency Hair loss Chronic seasonal allergic rhinitis Irregular periods/menstrual cycles Moderate mixed hyperlipidemia not requiring statin therapy Review of systems: No unusual weight loss weight gain No shortness for breath palpitations wheezing The paresthesia 0 fever or chills Physical exam: Middle-aged female appearing younger than stated age HEENT unremarkable Heart rate and rhythm regular Abdomen is diffusely tender Extremities no edema Alert and oriented Assessment and plan: Recurrent pancreatitis unknown type may or may not be associated with diabetes and dyslipidemia and mesenteric vein thrombosis * Bowel rest NPO * IV fluid * Analgesia and antiemetics * Follow lipase * Advanced to clear liquids when vomiting and pain discontinue * 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 Diabetes mellitus on insulin * Continue lower dose of basal insulin * Sliding scale for hyperglycemia DVT prophylaxis * Covered with Eliquis Code status: * Full code blue Disposition: * Inpatient anticipate 3-4 days of hospitalization Time based billing: * 55 minutes were involved in the evaluation of this patient including [id number] evaluation physical examination of the patient review of previous records objective laboratory and imaging data including direct visualization of images discussion with emergency provider and nursing treatment team [facility] Medical History (Updated 12/18/24 @ 16:32 by Darell Christina DO) Other specified diabetes mellitus with hyperglycemia Pancreatitis DKA (diabetic ketoacidosis) demise due to miscarriage UTI (urinary tract infection) Urinary frequency Hair loss Chronic seasonal allergic rhinitis Irregular periods/menstrual cycles Moderate mixed hyperlipidemia not requiring statin therapy Borderline hypothyroidism Alopecia Lichen sclerosus et atrophicus of the vulva Depression Anxiety GERD (gastroesophageal reflux disease) Surgical History History of nephrolithotomy with removal of calculi (2012) History of third molar tooth extraction (1998) Status post delivery (2008) Family History Mother Thyroid disease Father Heart valve disorder Social History household members: spouse and children Smoking Status: Former smoker alcohol intake: current Meds Home Medications and Allergies Home Medications ?Medication ?Instructions ?Recorded ?Confirmed ?Type blood sugar diagnostic (Accu-Chek #400 ea 12/25/2207/09 Rx Guide test strips) finasteride 5 mg tablet 5 mg PO DAILY 04/14/2312/18 History ondansetron 4 mg disintegrating 4 mg PO Q6H PRN nausea and 11/22/23 12/18/24 Rx tablet vomiting #10 tabs 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,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,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 #1 ea 02/23/24 12/18/24 Rx (FreeStyle Josh 3 [place]) alprazolam 1 mg tablet 1 mg PO BID-TID PRN anxiety #45 02/24/24 12/18/24 Rx tabs pen needle, diabetic 32 gauge x #400 ea 03/23/2412/18 Rx 5/32 (Pen Needle) 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 sensor (FreeStyle #3 ea 05/18/24 5 Rx Josh 3 Plus Sensor device) glucagon 1 mg solution for 1 mg SUBCUT Q20M PRN hypogl ycemia 08/12/24 12/18/24 Rx injection (Glucagon Emergency Kit) #1 ea lancets 33 gauge (OneTouch [place] #200 ea 08/12/2407/09 Rx Plus Lancet) insulin lispro 100 unit/mL 1 sliding scale dose SUBCUT 10/18/24 12/18/24 Rx subcutaneous pen TIDWMEAL #15 mL rosuvastatin 5 mg tablet 10 mg (2 x 5 mg) PO .QHS #18 0 tabs 10/21/24 12/18/24 Rx venlafaxine 37.5 mg 37.5 mg PO DAILY #90 caps 12/18/24 Rx capsule,extended release 24 hr insulin glargine 100 unit/mL (3 18 unit SUBCUT DAILY 1 12/18/24 History mL) subcutaneous pen (Lantus Solostar U-100 Insulin) Allergies Allergy/AdvReac Type Severity Reaction Status Date / Time hydromorphone (HYDROMORPHONE) AdvReac Severe severe Verified 12/18/24 14:00 vomiting and dizziness levothyroxine AdvReac Intermediate Bloating Verified 12/18/24 14:00 amoxicillin (From AUGMENTIN) AdvReac Mild vomiting Verified 12/18/24 14:00 ciprofloxacin (From CIPRO) AdvReac Mild vomiting Verified 12/18/24 14:00 clavulanic acid (From AdvReac Mild vomiting Verified 12/18/24 14:00 AUGMENTIN) favian (FAVIAN) AdvReac Mild vomiting Verified 12/18/24 14:00 papaya (PAPAYA) AdvReac Mild vomiting Verified 12/18/24 14:00 tramadol (TRAMADOL) AdvReac Mild vomiting Verified 12/18/24 14:00 Exam Vital Signs (past 8 hours): - 12/18/24 13:55 12/18/24 14:03 12/18/24 14:04 Temperature 98.5 F Pulse Rate 111 H 114 H Respiratory Rate 18 Blood Pressure 131/93 H 155/60 H Pulse Oximetry 96 97 Oxygen Delivery Method Room Air Oxygen Flow Rate 12/18/24 14:04 12/18/24 14:33 12/18/24 15:00 Temperature Pulse Rate 102 H 119 H 79 Respiratory Rate 20 Blood Pressure Pulse Oximetry 97 100 100 Oxygen Delivery Method Oxygen Flow Rate 12/18/24 15:01 12/18/24 15:01 12/18/24 15:30 Temperature Pulse Rate 87 Respiratory Rate 19 Blood Pressure 141/63 H 111/74 Pulse Oximetry 100 Oxygen Delivery Method Oxygen Flow Rate 12/18/24 15:30 12/18/24 15:48 12/18/24 15:48 Temperature Pulse Rate 87 95 H Respiratory Rate 16 Blood Pressure 118/66 Pulse Oximetry 100 97 Oxygen Delivery Method Oxygen Flow Rate 12/18/24 16:00 12/18/24 16:00 12/18/24 16:30 Temperature Pulse Rate 85 Respiratory Rate Blood Pressure 140/63 113/76 Pulse Oximetry 99 Oxygen Delivery Method Oxygen Flow Rate 12/18/24 16:30 12/18/24 17:00 12/18/24 17:00 Temperature Pulse Rate 84 92 H Respiratory Rate 16 19 Blood Pressure 122/84 Pulse Oximetry 96 98 Oxygen Delivery Method Oxygen Flow Rate 12/18/24 17:30 12/18/24 17:30 12/18/24 17:45 Temperature 97.7 F Pulse Rate 92 H 94 H Respiratory Rate 14 15 Blood Pressure 121/63 121/86 Pulse Oximetry 97 98 Oxygen Delivery Method Oxygen Flow Rate 0 Oxygen Delivery Method Room Air Oxygen Flow Rate 0 Objective Labs 12/18/24 14:10 12/18/24 14:10 Labs: Laboratory Results - last 24 hr 12/18/24 12/18/24 12/18/24 14:10 15:50 19:49 WBC 5.1 RBC 4.60 Hgb 14.8 Hct 44.3 MCV 96.2 MCH 32.1 MCHC 33.4 RDW 12.6 Plt Count 236 Neut % (Auto) 67.9 Lymph % (Auto) 17.6 L [place] % (Auto) 8.1 Eos % (Auto) 5.6 H Baso % (Auto) 0.8 Neut # (Auto) 3500 Lymph # (Auto) 900 L [place] # (Auto) 400 Eos # (Auto) 300 Baso # (Auto) 0 Sodium 134 L Potassium 4.0 Chloride 98 Carbon Dioxide 20 L BUN 10 Creatinine 0.60 Estimated GFR > 60 BUN/Creatinine Ratio 16.7 Glucose 167 H POC Whole Bld Glucose 222 H Calcium 9.3 Total Bilirubin 0.8 AST 107 H ALT 119 H Alkaline Phosphatase 81 Total Protein 7.9 Albumin 4.6 Globulin 3.3 Albumin/Globulin Ratio 1.4 Lipase 1520 H Urine RBC None seen Urine WBC None seen Ur Squamous Epith Cells 0-1 /hpf Urine Bacteria None seen Vol Urine Centrifuged 10ml (spun) Assessment & Plan Time-Based Coding :: [TOTAL MINUTES] spent with patient and on the chart (including review of chart, obtaining history, exam, reviewing outside data, placing orders, documenting exam and treatment plan, and counseling patient) on [DATE]. Quality VTE Deep Vein Thrombosis/Pulmonary Embolism Present on Admission: No
[2024-12-18] MEDS: VENLAFAXINE ER 37.5 MG CAP PO (20:30)
[2024-12-18] MEDS: ENOXAPARIN 100 MG/ML SYRINGE 60 MG SUBCUT (20:30)
[2024-12-18] MEDS: INSULIN GLARGINE 100 UNIT/ML 3ML PEN 10 UNIT SUBCUT (20:31)
[2024-12-19] MEDS: MORPHINE 4 MG/ML INJ IV ×5 (00:52→23:02)
[2024-12-19] MEDS: ONDANSETRON 4 MG/2 ML INJ IV (00:52)
[2024-12-19] MEDS: SODIUM CHLORIDE 0.9% 1,000 ML 100 ML IV (03:08)
[2024-12-19] MEDS: FAMOTIDINE 20 MG TABLET PO (03:19)
[2024-12-19 04:09] VITALS: BP 128/85; PULSE 106
[2024-12-19] MEDS: PROCHLORPERAZINE 10 MG/2 ML VIAL IV ×4 (04:09→22:59)
[2024-12-19] MEDS: INSULIN LISPRO 100 UNIT/ML 3ML VIAL SUBCUT (07:58)
[2024-12-19 08:00] VITALS: BP 116/71; PULSE 90; RESP 16; TEMP 36.3; O2SAT 98
[2024-12-19] MEDS: ENOXAPARIN 100 MG/ML SYRINGE 60 MG SUBCUT ×2 (08:00→20:16)
[2024-12-19 10:00] LABS: Add Manual Diff / Slide Review NO; Hematocrit 39.8 % (36-46); Hemoglobin 13.2 g/dL (12.0-16.0); Lymphocytes Absolute Auto 1100 /uL (1100-4500); Mean Corpuscular HGB Conc 33.2 % (30-36); Mean Corpuscular Hemoglobin 32.4 PG (26-34); Mean Corpuscular Volume 97.7 fL (80-100); Platelet Count 228 X10^3/uL (150-400)
[2024-12-19 10:12] LABS: Alanine Aminotransferase 77 IU/L (<35); Albumin 4.0 g/dL (3.5-5.0); Albumin Globulin Ratio 1.3 (1.0-2.8); Alkaline Phosphatase 71 U/L (38-126); Blood Urea Nitrogen 5 mg/dL (7-17); Calcium 8.2 mg/dL (8.4-10.2); Carbon Dioxide 11 mmol/L (22-32); Chloride 105 mmol/L (98-107); Estimated Glomerular Filt Rate > 60 mL/min (>60); Globulin 3.0 g/dL (1.7-4.1); Glucose 230 mg/dL (70-99); HEMOLYSIS < 15 (0-50); Potassium 4.0 mmol/L (3.4-5.1); Sodium 136 mmol/L (137-145); Total Protein 7.0 g/dL (6.3-8.2)
[2024-12-19 10:25] LABS: Lipase 3372 U/L (23-300)
[2024-12-19] MEDS: SODIUM CHLORIDE 0.9% 500 ML 1000 ML IV (10:26)
[2024-12-19] MEDS: SODIUM CHLORIDE 0.9% 1,000 ML 150 ML IV ×2 (13:00→22:41)
--- NOTE | 2024-12-19 14:12 | P.PN_ITS ---
Subjective Subjective Date Patient Seen: 12/19/24 Interval history: Chief complaint: Three days of nausea vomiting with recurrent pancreatitis idiopathic type History of present illness: 12/18: 44-year-old female with insulin dependent diabetes although never has had DKA is history of pancreatitis 2 years ago which took 4 days to resolve has not had any significant problems since does not follow strength that free diet and occasionally drinks alcohol but has not had any alcohol in the last 10 days. Has progressive epigastric pain nausea for past 3 days Findings emergency department significant for lipase of 1600, pancreatitis and superior mesenteric vein thrombosis mild Pancreas: There is homogeneous pancreatic parenchymal enhancement. Possible intraluminal filling defect of the superior mesenteric vein near the junction with the splenic vein. Moderate peripancreatic inflammatory changes most pronounced over the pancreatic head and uncinate process. No organized fluid collection seen. Hospital course: 12/19: Continues to have epigastric pain and discomfort with nausea and vomiting Compazine works better than Zofran morphine is relieving some of the pain but she does not want to increase the dose at this time lipase escalated to 3375 from 1600 Review of systems: No unusual weight loss weight gain No shortness for breath palpitations wheezing The paresthesia 0 fever or chills Physical exam: Middle-aged female appearing younger than stated age HEENT unremarkable Heart rate and rhythm regular Abdomen is diffusely tender Extremities no edema Alert and oriented Assessment and plan: Recurrent pancreatitis unknown type may or may not be associated with diabetes and dyslipidemia and mesenteric vein thrombosis * Bowel rest NPO * IV fluid * Analgesia and antiemetics * Follow lipase * Advanced to clear liquids when vomiting and pain discontinue * 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 Diabetes mellitus on insulin * Continue lower dose of basal insulin * Sliding scale for hyperglycemia DVT prophylaxis * Covered with Eliquis Code status: * Full code blue Disposition: * Inpatient anticipate 3-4 days of hospitalization Time based billing: * 35 minutes were involved in the evaluation of this patient including [id number] evaluation physical examination of the patient review of previous records objective laboratory and imaging data including direct visualization of images Exam Vital Signs (past 8 hours): - 12/19/24 08:00 Temperature 97.4 F L Pulse Rate 90 Respiratory Rate 16 Blood Pressure 116/71 Pulse Oximetry 98 Oxygen Flow Rate 0 Oxygen Delivery Method Room Air Oxygen Flow Rate 0 Objective Labs 12/19/24 09:40 12/19/24 09:40 Labs: Laboratory Results - last 24 hr 12/18/24 12/18/24 12/18/24 14:10 15:50 19:49 WBC 5.1 RBC 4.60 Hgb 14.8 Hct 44.3 MCV 96.2 MCH 32.1 MCHC 33.4 RDW 12.6 Plt Count 236 Neut % (Auto) 67.9 Lymph % (Auto) 17.6 L [place] % (Auto) 8.1 Eos % (Auto) 5.6 H Baso % (Auto) 0.8 Neut # (Auto) 3500 Lymph # (Auto) 900 L [place] # (Auto) 400 Eos # (Auto) 300 Baso # (Auto) 0 Sodium 134 L Potassium 4.0 Chloride 98 Carbon Dioxide 20 L BUN 10 Creatinine 0.60 Estimated GFR > 60 BUN/Creatinine Ratio 16.7 Glucose 167 H POC Whole Bld Glucose 222 H Calcium 9.3 Total Bilirubin 0.8 AST 107 H ALT 119 H Alkaline Phosphatase 81 Total Protein 7.9 Albumin 4.6 Globulin 3.3 Albumin/Globulin Ratio 1.4 Lipase 1520 H Urine RBC None seen Urine WBC None seen Ur Squamous Epith Cells 0-1 /hpf Urine Bacteria None seen Vol Urine Centrifuged 10ml (spun) 12/19/24 12/19/24 12/19/24 03:08 07:41 09:40 WBC 6.5 RBC 4.07 Hgb 13.2 Hct 39.8 MCV 97.7 MCH 32.4 MCHC 33.2 RDW 13.0 Plt Count 228 Neut % (Auto) 73.3 Lymph % (Auto) 16.2 L [place] % (Auto) 9.4 Eos % (Auto) 0.8 L Baso % (Auto) 0.3 Neut # (Auto) 4800 Lymph # (Auto) 1100 [place] # (Auto) 600 Eos # (Auto) 100 Baso # (Auto) 0 Sodium 136 L Potassium 4.0 Chloride 105 Carbon Dioxide 11 L BUN 5 L Creatinine 0.57 Estimated GFR > 60 BUN/Creatinine Ratio 8.8 Glucose 230 H POC Whole Bld Glucose 238 H 256 H Calcium 8.2 L Total Bilirubin 0.6 AST 44 H ALT 77 H Alkaline Phosphatase 71 Total Protein 7.0 Albumin 4.0 Globulin 3.0 Albumin/Globulin Ratio 1.3 Lipase 3372 H D Urine RBC Urine WBC Ur Squamous Epith Cells Urine Bacteria Vol Urine Centrifuged 12/19/24 12:19 WBC RBC Hgb Hct MCV MCH MCHC RDW Plt Count Neut % (Auto) Lymph % (Auto) [place] % (Auto) Eos % (Auto) Baso % (Auto) Neut # (Auto) Lymph # (Auto) [place] # (Auto) Eos # (Auto) Baso # (Auto) Sodium Potassium Chloride Carbon Dioxide BUN Creatinine Estimated GFR BUN/Creatinine Ratio Glucose POC Whole Bld Glucose 195 H Calcium Total Bilirubin AST ALT Alkaline Phosphatase Total Protein Albumin Globulin Albumin/Globulin Ratio Lipase Urine RBC Urine WBC Ur Squamous Epith Cells Urine Bacteria Vol Urine Centrifuged [facility] Medical History (Updated 12/18/24 @ 16:32 by Darell Christina DO) Other specified diabetes mellitus with hyperglycemia Pancreatitis DKA (diabetic ketoacidosis) demise due to miscarriage UTI (urinary tract infection) Urinary frequency Hair loss Chronic seasonal allergic rhinitis Irregular periods/menstrual cycles Moderate mixed hyperlipidemia not requiring statin therapy Borderline hypothyroidism Alopecia Lichen sclerosus et atrophicus of the vulva Depression Anxiety GERD (gastroesophageal reflux disease) Surgical History History of nephrolithotomy with removal of calculi (2012) History of third molar tooth extraction (1998) Status post delivery (2008) Family History Mother Thyroid disease Father Heart valve disorder Social History household members: spouse and children Smoking Status: Former smoker alcohol intake: current Assessment & Plan Time-Based Coding :: [TOTAL MINUTES] spent with patient and on the chart (including review of chart, obtaining history, exam, reviewing outside data, placing orders, documenting exam and treatment plan, and counseling patient) on [DATE]. Quality VTE Deep Vein Thrombosis/Pulmonary Embolism Present on Admission: No
--- NOTE | 2024-12-19 14:37 | CM.DANOTE ---
DCP Assessment Note: Pt is a 44yo female, resident of [place], is admitted for pancreatitis. Pt lives in a house with her spouse and children. Pt's Primary Care Provider is Dr. Marco Saenz and insurance is [facility]. Reviewed chart and discussed with multidisciplinary team pt's medical status and initial discharge needs. Per hospitalist, pt to obtain IV fluids, antiemetics, and advancing diet slowly. DCP met w/patient at bedside; introduced self and role. Patient was found in bed, alert and oriented, cooperative with assessment. Pt confirmed living situation and good support in . Pt expressed preference in discharge home when cleared. Pt has no history of home health or SNF. No needs identified at discharge by patient. Plan: Anticipating discharge home with family in 3-4 days (MARCY: 12/22 or 12/23). CM team will follow closely for coordination of discharge plans. Татьяна La [facility] Discharge Planning/Care Management CM Discharge Assessment Start: 12/18/24 17:00 Freq: Status: Active Protocol: Document 12/19/24 14:35 MW (Rec: 12/19/24 14:37 MW [id number]) Discharge Planning Assessment Assigned Discharge JUAN M aVz Product Marketing Director Provider Dr. Marco Saenz Insurance [place] DPOA/Assigned Quang Neri, Designee Name Contact Information [phone] Advance Directives? No History Provided By Patient,Medical Record Has Patient been No admitted in last 30 days? Prior Living House Arrangements Household Members spouse,children Type of Drives own vehicle transporation used prior to admit Independent with ADL Yes 's Is patient alert and Yes oriented? Caregiver for Yes Another Discharge Plan Home Transportation in POV Arrangement Referrals Initiated None needed Review Status In Process Please Provide Date 12/19/24 Initial DC Assessment Was Performed Next Review Type Continued Stay Review
[2024-12-19 20:12] VITALS: BP 132/81; PULSE 95; RESP 17; TEMP 36.7; O2SAT 100
[2024-12-19] MEDS: INSULIN GLARGINE 100 UNIT/ML 3ML PEN 10 UNIT SUBCUT (20:16)
[2024-12-19] MEDS: VENLAFAXINE ER 37.5 MG CAP PO (20:16)
[2024-12-19 22:59] VITALS: BP 131/74; PULSE 96
[2024-12-20] MEDS: SODIUM CHLORIDE 0.9% 1,000 ML 150 ML IV ×3 (05:10→19:01)
[2024-12-20 06:50] VITALS: BP 121/88; PULSE 96
[2024-12-20] MEDS: PROCHLORPERAZINE 10 MG/2 ML VIAL IV ×3 (06:50→21:04)
[2024-12-20] MEDS: MORPHINE 4 MG/ML INJ IV ×4 (06:50→21:04)
[2024-12-20 06:53] LABS: Add Manual Diff / Slide Review NO; Hematocrit 34.9 % (36-46); Hemoglobin 11.7 g/dL (12.0-16.0); Lymphocytes Absolute Auto 500 /uL (1100-4500); Mean Corpuscular HGB Conc 33.5 % (30-36); Mean Corpuscular Hemoglobin 32.2 PG (26-34); Mean Corpuscular Volume 96.0 fL (80-100); Platelet Count 192 X10^3/uL (150-400)
[2024-12-20 07:03] LABS: Alanine Aminotransferase 51 IU/L (<35); Albumin 3.2 g/dL (3.5-5.0); Albumin Globulin Ratio 1.2 (1.0-2.8); Alkaline Phosphatase 60 U/L (38-126); Blood Urea Nitrogen 4 mg/dL (7-17); Calcium 7.5 mg/dL (8.4-10.2); Carbon Dioxide 15 mmol/L (22-32); Chloride 110 mmol/L (98-107); Estimated Glomerular Filt Rate > 60 mL/min (>60); Globulin 2.7 g/dL (1.7-4.1); Glucose 161 mg/dL (70-99); HEMOLYSIS < 15 (0-50); Potassium 3.8 mmol/L (3.4-5.1); Sodium 135 mmol/L (137-145); Total Protein 5.9 g/dL (6.3-8.2)
[2024-12-20 07:32] LABS: Lipase 2069 U/L (23-300)
[2024-12-20] MEDS: ENOXAPARIN 100 MG/ML SYRINGE 60 MG SUBCUT ×2 (08:47→20:35)
[2024-12-20] MEDS: SUCRALFATE 1 GM/10 ML ORAL SUSP PO (09:02)
[2024-12-20 12:10] VITALS: BP 119/78; PULSE 91; RESP 12; TEMP 36.6; O2SAT 100
--- NOTE | 2024-12-20 16:34 | PM.PN.1 ---
Subjective Subjective Date Patient Seen: 12/20/24 Interval history: Chief complaint: Three days of nausea vomiting with recurrent pancreatitis idiopathic type History of present illness: 12/18: 44-year-old female with insulin dependent diabetes although never has had DKA is history of pancreatitis 2 years ago which took 4 days to resolve has not had any significant problems since does not follow strength that free diet and occasionally drinks alcohol but has not had any alcohol in the last 10 days. Has progressive epigastric pain nausea for past 3 days Findings emergency department significant for lipase of 1600, pancreatitis and superior mesenteric vein thrombosis mild Pancreas: There is homogeneous pancreatic parenchymal enhancement. Possible intraluminal filling defect of the superior mesenteric vein near the junction with the splenic vein. Moderate peripancreatic inflammatory changes most pronounced over the pancreatic head and uncinate process. No organized fluid collection seen. Hospital course: 12/19: Continues to have epigastric pain and discomfort with nausea and vomiting Compazine works better than Zofran morphine is relieving some of the pain but she does not want to increase the dose at this time lipase escalated to 3375 from 1600 12/20: Epigastric pain intermittent lipase done in 1999 tolerating sips of water Review of systems: No unusual weight loss weight gain No shortness for breath palpitations wheezing The paresthesia 0 fever or chills Physical exam: Middle-aged female appearing younger than stated age HEENT unremarkable Heart rate and rhythm regular Abdomen is diffusely tender Extremities no edema Alert and oriented Assessment and plan: Recurrent pancreatitis unknown type may or may not be associated with diabetes and dyslipidemia and mesenteric vein thrombosis Bowel rest NPO IV fluid Analgesia and antiemetics Follow lipase Advanced to clear liquids when vomiting and pain discontinue 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 Diabetes mellitus on insulin Continue lower dose of basal insulin Sliding scale for hyperglycemia DVT prophylaxis Covered with Eliquis Code status: Full code blue Disposition: Inpatient possible discharge in 24-48 hours Time based billin minutes were involved in the evaluation of this patient including [id number] evaluation physical examination of the patient review of previous records objective laboratory and imaging data including direct visualization of images Exam Vital Signs (past 8 hours): - 12/20/24 12:10 Temperature 97.8 F Pulse Rate 91 H Respiratory Rate 12 Blood Pressure 119/78 Pulse Oximetry 100 Oxygen Flow Rate 0 Oxygen Delivery Method Room Air Oxygen Flow Rate 0 Objective Labs 12/20/24 06:35 12/20/24 06:35 Labs: Laboratory Results - last 24 hr 12/19/24 12/19/24 12/20/24 16:30 20:11 02:10 WBC RBC Hgb Hct MCV MCH MCHC RDW Plt Count Neut % (Auto) Lymph % (Auto) [place] % (Auto) Eos % (Auto) Baso % (Auto) Neut # (Auto) Lymph # (Auto) [place] # (Auto) Eos # (Auto) Baso # (Auto) Sodium Potassium Chloride Carbon Dioxide BUN Creatinine Estimated GFR BUN/Creatinine Ratio Glucose POC Whole Bld Glucose 206 H 203 H 181 H Calcium Total Bilirubin AST ALT Alkaline Phosphatase Total Protein Albumin Globulin Albumin/Globulin Ratio Lipase 12/20/24 12/20/24 12/20/24 06:35 06:43 11:44 WBC 4.7 RBC 3.63 L Hgb 11.7 L Hct 34.9 L MCV 96.0 MCH 32.2 MCHC 33.5 RDW 12.8 Plt Count 192 Neut % (Auto) 72.2 Lymph % (Auto) 11.6 L [place] % (Auto) 13.3 Eos % (Auto) 2.2 Baso % (Auto) 0.7 Neut # (Auto) 3400 Lymph # (Auto) 500 L [place] # (Auto) 600 Eos # (Auto) 100 Baso # (Auto) 0 Sodium 135 L Potassium 3.8 Chloride 110 H Carbon Dioxide 15 L BUN 4 L Creatinine 0.49 L Estimated GFR > 60 BUN/Creatinine Ratio 8.2 Glucose 161 H POC Whole Bld Glucose 150 H 187 H Calcium 7.5 L Total Bilirubin 0.4 AST 28 ALT 51 H Alkaline Phosphatase 60 Total Protein 5.9 L Albumin 3.2 L Globulin 2.7 Albumin/Globulin Ratio 1.2 Lipase 2069 H [facility] Medical History (Updated 12/18/24 @ 16:32 by Darell Christina DO) Other specified diabetes mellitus with hyperglycemia Pancreatitis DKA (diabetic ketoacidosis) demise due to miscarriage UTI (urinary tract infection) Urinary frequency Hair loss Chronic seasonal allergic rhinitis Irregular periods/menstrual cycles Moderate mixed hyperlipidemia not requiring statin therapy Borderline hypothyroidism Alopecia Lichen sclerosus et atrophicus of the vulva Depression Anxiety GERD (gastroesophageal reflux disease) Surgical History History of nephrolithotomy with removal of calculi (2012) History of third molar tooth extraction (1998) Status post delivery (2008) Family History Mother Thyroid disease Father Heart valve disorder Social History household members: spouse and children Smoking Status: Former smoker alcohol intake: current Assessment & Plan Time-Based Coding :: [TOTAL MINUTES] spent with patient and on the chart (including review of chart, obtaining history, exam, reviewing outside data, placing orders, documenting exam and treatment plan, and counseling patient) on [DATE]. Quality VTE Deep Vein Thrombosis/Pulmonary Embolism Present on Admission: No
--- NOTE | 2024-12-20 17:17 | DIET.CONS ---
Dietary Consultation Note Admission Date: 12/18/2024 16:30 Assessment: 44 y F admitted for pancreatitis. Dietitian screened per RN concern of pt going multiple days without po intakes. Met with pt at bedside. Reports last meal this past Friday (on day 3 no PO intakes). Reports normal intakes and normal appetite before then with multiple meals daily. Just starting to tolerate water today. Denies any recent weight loss. No wt loss seen in chart. Pt is + Pt previously has seen DM educator. Reports no issues with prescriptions or supplies. Last A1c 6.7% on 07/23/24. Ht: 152.4 cm Wt: 64.5 kg BMI: 27.7 UBW: 58-59 kg per recent EMR weights Last BM: 12/18/24 (12/18/24 17:49) MNA: 14 Terrell Score: 15 Diet: 12/18/24 Dinner Clear Liquid Diet Diet Modifications: Labs: RBC 3.63 X10^6/uL (4.0-5.2) L 12/20/24 06:35 Hgb 11.7 g/dL (12.0-16.0) L 12/20/24 06:35 Hct 34.9 % (36-46) L 12/20/24 06:35 Creatinine 0.49 mg/dL (0.52-1.04) L 12/20/24 06:35 Nutrition Diagnosis: Inadequate oral intake r/t altered function of GI related organ aeb pancreatitis and day 3 of NPO/clears Interventions: Monitoring days on clears and for diet advancement Monitoring/Evaluations: BG and PO intakes Electronically Signed by: Dalila Laird 12/20/24 17:17 Clinical Dietitian [address] [address]
[2024-12-20] MEDS: INSULIN GLARGINE 100 UNIT/ML 3ML PEN 10 UNIT SUBCUT (20:34)
[2024-12-20] MEDS: VENLAFAXINE ER 37.5 MG CAP PO (20:35)
[2024-12-20 21:04] VITALS: BP 126/90; PULSE 96
[2024-12-20 21:06] VITALS: BP 126/90; PULSE 96; RESP 18; TEMP 36.7; O2SAT 100
[2024-12-21] MEDS: SODIUM CHLORIDE 0.9% 1,000 ML 150 ML IV ×4 (01:07→21:32)
[2024-12-21 06:40] LABS: Add Manual Diff / Slide Review NO; Hematocrit 34.1 % (36-46); Hemoglobin 11.4 g/dL (12.0-16.0); Lymphocytes Absolute Auto 700 /uL (1100-4500); Mean Corpuscular HGB Conc 33.4 % (30-36); Mean Corpuscular Hemoglobin 32.3 PG (26-34); Mean Corpuscular Volume 96.7 fL (80-100); Platelet Count 190 X10^3/uL (150-400)
[2024-12-21 06:49] LABS: Lipase 327 U/L (23-300)
[2024-12-21 06:50] LABS: Alanine Aminotransferase 40 IU/L (<35); Albumin 3.1 g/dL (3.5-5.0); Albumin Globulin Ratio 1.1 (1.0-2.8); Alkaline Phosphatase 61 U/L (38-126); Blood Urea Nitrogen 3 mg/dL (7-17); Calcium 7.4 mg/dL (8.4-10.2); Carbon Dioxide 13 mmol/L (22-32); Chloride 108 mmol/L (98-107); Estimated Glomerular Filt Rate > 60 mL/min (>60); Globulin 2.8 g/dL (1.7-4.1); Glucose 174 mg/dL (70-99); HEMOLYSIS < 15 (0-50); Potassium 3.6 mmol/L (3.4-5.1); Sodium 136 mmol/L (137-145); Total Protein 5.9 g/dL (6.3-8.2)
[2024-12-21 06:55] VITALS: BP 118/79; PULSE 84
[2024-12-21] MEDS: PROCHLORPERAZINE 10 MG/2 ML VIAL IV ×3 (06:55→21:27)
[2024-12-21] MEDS: MORPHINE 4 MG/ML INJ IV ×4 (06:56→21:28)
[2024-12-21] MEDS: ENOXAPARIN 100 MG/ML SYRINGE 60 MG SUBCUT (08:36)
[2024-12-21] MEDS: SUCRALFATE 1 GM/10 ML ORAL SUSP PO ×2 (08:37→14:26)
--- NOTE | 2024-12-21 13:12 | P.PN_ITS ---
Subjective Subjective Date Patient Seen: 12/21/24 Interval history: Chief complaint: Three days of nausea vomiting with recurrent pancreatitis idiopathic type History of present illness: 12/18: 44-year-old female with insulin dependent diabetes although never has had DKA is history of pancreatitis 2 years ago which took 4 days to resolve has not had any significant problems since does not follow strength that free diet and occasionally drinks alcohol but has not had any alcohol in the last 10 days. Has progressive epigastric pain nausea for past 3 days Findings emergency department significant for lipase of 1600, pancreatitis and superior mesenteric vein thrombosis mild Pancreas: There is homogeneous pancreatic parenchymal enhancement. Possible intraluminal filling defect of the superior mesenteric vein near the junction with the splenic vein. Moderate peripancreatic inflammatory changes most pronounced over the pancreatic head and uncinate process. No organized fluid collection seen. Hospital course: 12/19: Continues to have epigastric pain and discomfort with nausea and vomiting Compazine works better than Zofran morphine is relieving some of the pain but she does not want to increase the dose at this time lipase escalated to 3375 from 1600 12/20: Epigastric pain intermittent lipase done in 1999 tolerating sips of water 12/21: Intermittent epigastric pain no worse with sips of clear liquids no emesis this morning lipase is down to 300 Review of systems: No unusual weight loss weight gain No shortness for breath palpitations wheezing The paresthesia 0 fever or chills Physical exam: Middle-aged female appearing younger than stated age HEENT unremarkable Heart rate and rhythm regular Abdomen is diffusely tender Extremities no edema Alert and oriented Assessment and plan: Recurrent pancreatitis unknown type may or may not be associated with diabetes and dyslipidemia and mesenteric vein thrombosis * Bowel rest NPO * IV fluid * Analgesia and antiemetics * Follow lipase * Advanced to clear liquids when vomiting and pain discontinue * 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 Diabetes mellitus on insulin * Continue lower dose of basal insulin * Sliding scale for hyperglycemia DVT prophylaxis * Covered with Eliquis Code status: * Full code blue Disposition: * Inpatient possible discharge in 24-48 hours Time based billing: * 35 minutes were involved in the evaluation of this patient including [id number] evaluation physical examination of the patient review of previous records objective laboratory and imaging data including direct visualization of images Exam Vital Signs (past 8 hours): - 12/21/24 06:55 Pulse Rate 84 Blood Pressure 118/79 Oxygen Delivery Method Room Air Oxygen Flow Rate 0 Objective Labs 12/21/24 06:20 12/21/24 06:20 Labs: Laboratory Results - last 24 hr 12/20/24 12/20/24 12/21/24 16:47 20:26 03:14 WBC RBC Hgb Hct MCV MCH MCHC RDW Plt Count Neut % (Auto) Lymph % (Auto) [place] % (Auto) Eos % (Auto) Baso % (Auto) Neut # (Auto) Lymph # (Auto) [place] # (Auto) Eos # (Auto) Baso # (Auto) Sodium Potassium Chloride Carbon Dioxide BUN Creatinine Estimated GFR BUN/Creatinine Ratio Glucose POC Whole Bld Glucose 219 H 215 H 178 H Calcium Total Bilirubin AST ALT Alkaline Phosphatase Total Protein Albumin Globulin Albumin/Globulin Ratio Lipase 12/21/24 12/21/24 12/21/24 06:20 07:50 11:55 WBC 4.3 L RBC 3.52 L Hgb 11.4 L Hct 34.1 L MCV 96.7 MCH 32.3 MCHC 33.4 RDW 12.4 Plt Count 190 Neut % (Auto) 66.3 Lymph % (Auto) 16.7 L [place] % (Auto) 11.4 Eos % (Auto) 5.0 H Baso % (Auto) 0.6 Neut # (Auto) 2900 Lymph # (Auto) 700 L [place] # (Auto) 500 Eos # (Auto) 200 Baso # (Auto) 0 Sodium 136 L Potassium 3.6 Chloride 108 H Carbon Dioxide 13 L BUN 3 L Creatinine 0.50 L Estimated GFR > 60 BUN/Creatinine Ratio 6.0 Glucose 174 H POC Whole Bld Glucose 178 H 205 H Calcium 7.4 L Total Bilirubin 0.5 AST 25 ALT 40 H Alkaline Phosphatase 61 Total Protein 5.9 L Albumin 3.1 L Globulin 2.8 Albumin/Globulin Ratio 1.1 Lipase 327 H D [facility] Medical History (Updated 12/18/24 @ 16:32 by Darell Christina DO) Other specified diabetes mellitus with hyperglycemia Pancreatitis DKA (diabetic ketoacidosis) demise due to miscarriage UTI (urinary tract infection) Urinary frequency Hair loss Chronic seasonal allergic rhinitis Irregular periods/menstrual cycles Moderate mixed hyperlipidemia not requiring statin therapy Borderline hypothyroidism Alopecia Lichen sclerosus et atrophicus of the vulva Depression Anxiety GERD (gastroesophageal reflux disease) Surgical History History of nephrolithotomy with removal of calculi (2012) History of third molar tooth extraction (1998) Status post delivery (2008) Family History Mother Thyroid disease Father Heart valve disorder Social History household members: spouse and children Smoking Status: Former smoker alcohol intake: current Assessment & Plan Time-Based Coding :: [TOTAL MINUTES] spent with patient and on the chart (including review of chart, obtaining history, exam, reviewing outside data, placing orders, documenting exam and treatment plan, and counseling patient) on [DATE]. Quality VTE Deep Vein Thrombosis/Pulmonary Embolism Present on Admission: No
[2024-12-21 14:25] VITALS: BP 118/79; PULSE 84
--- NOTE | 2024-12-21 17:23 | DIET.PN1 ---
Dietary Progress Note Assessment: Per RN pt had questions regarding diet and pancreatitis. Met with pt at bedside and provided pancreatitis nutrition therapy and handout. Ht: 152.4 cm Wt: 64.5 kg BMI: 27.7 UBW: Last BM: 12/18/24 (12/18/24 17:49) MNA: 14 Terrell Score: 21 Diet: 12/18/24 Dinner Clear Liquid Diet Diet Modifications: Nutrition Percent Meal Consumed 0% 12/20/24 18:24 Labs: RBC 3.52 X10^6/uL (4.0-5.2) L 12/21/24 06:20 Hgb 11.4 g/dL (12.0-16.0) L 12/21/24 06:20 Hct 34.1 % (36-46) L 12/21/24 06:20 Creatinine 0.50 mg/dL (0.52-1.04) L 12/21/24 06:20 Electronically Signed by: Dalila Laird 12/21/24 17:23 Clinical Dietitian [address] [address]
[2024-12-21 20:00] VITALS: BP 138/90; PULSE 95; RESP 18; TEMP 36.6; O2SAT 100
[2024-12-21] MEDS: INSULIN GLARGINE 100 UNIT/ML 3ML PEN 10 UNIT SUBCUT (21:26)
[2024-12-21] MEDS: ENOXAPARIN 60 MG/0.6 ML SYRINGE SUBCUT (21:26)
[2024-12-21 21:27] VITALS: BP 138/90
[2024-12-21] MEDS: VENLAFAXINE ER 37.5 MG CAP PO (21:29)
--- NOTE | 2024-12-22 03:56 | PC.NURSE ---
Pt is A&O,on room air. Blood glucose monitored- [facility]. N/S @150ml/hr. Given Morphine for pain and Compazine to relieve nausea. For Bowel rest and low fat diet to be implemented.
[2024-12-22] MEDS: SODIUM CHLORIDE 0.9% 1,000 ML 150 ML IV (05:25)
[2024-12-22 05:48] LABS: Add Manual Diff / Slide Review NO; Hematocrit 35.5 % (36-46); Hemoglobin 11.9 g/dL (12.0-16.0); Lymphocytes Absolute Auto 900 /uL (1100-4500); Mean Corpuscular HGB Conc 33.6 % (30-36); Mean Corpuscular Hemoglobin 32.3 PG (26-34); Mean Corpuscular Volume 96.2 fL (80-100); Platelet Count 217 X10^3/uL (150-400)
[2024-12-22 06:07] LABS: Lipase 281 U/L (23-300)
[2024-12-22 06:08] LABS: Alanine Aminotransferase 39 IU/L (<35); Albumin 3.2 g/dL (3.5-5.0); Albumin Globulin Ratio 1.1 (1.0-2.8); Alkaline Phosphatase 70 U/L (38-126); Calcium 7.5 mg/dL (8.4-10.2); Carbon Dioxide 10 mmol/L (22-32); Chloride 110 mmol/L (98-107); Estimated Glomerular Filt Rate > 60 mL/min (>60); Globulin 2.8 g/dL (1.7-4.1); Glucose 203 mg/dL (70-99); HEMOLYSIS < 15 (0-50); Potassium 3.4 mmol/L (3.4-5.1); Sodium 137 mmol/L (137-145); Total Protein 6.0 g/dL (6.3-8.2)
[2024-12-22 06:15] LABS: Blood Urea Nitrogen 2 mg/dL (7-17)
[2024-12-22] MEDS: SUCRALFATE 1 GM/10 ML ORAL SUSP PO (08:24)
[2024-12-22] MEDS: MORPHINE 4 MG/ML INJ IV (08:25)
[2024-12-22] MEDS: PROCHLORPERAZINE 10 MG/2 ML VIAL IV (08:26)
--- NOTE | 2024-12-22 08:49 | PM.DS.1 ---
History of Present Illness History of Present Illness Chief complaint: pancreatitis Narrative: From H&P: 44-year-old female with insulin dependent diabetes although never has had DKA is history of pancreatitis 2 years ago which took 4 days to resolve has not had any significant problems since does not follow strength that free diet and occasionally drinks alcohol but has not had any alcohol in the last 10 days. Has progressive epigastric pain nausea for past 3 days Findings emergency department significant for lipase of 1600, pancreatitis and superior mesenteric vein thrombosis mild Pancreas: There is homogeneous pancreatic parenchymal enhancement. Possible intraluminal filling defect of the superior mesenteric vein near the junction with the splenic vein. Moderate peripancreatic inflammatory changes most pronounced over the pancreatic head and uncinate process. No organized fluid collection seen. Discharge Providers Provider Date of admission: 12/18/24 16:30 Discharge Date: 12/22/24 Primary care physician: Marco Saenz MD Consults: None. Discharge provider: Jr Cabrera MD Summary Hospital Course Discharge Diagnosis: 1. Recurrent pancreatitis, improved 2. 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 DM Hospital Course: She was admitted and treated with bowel rest with good improvement of symptoms. In the day of discharge she was requested discharge home of pain medications. Imaging indicated a possible superior mesenteric thrombosis and she was started on full-dose Lovenox. The plan was for anticoagulation at discharge and close PCP follow up. Her insurance did not cover Eliquis, she will be discharged on dabigatran 150 p.o. b.i.d.. She will see PCP within 1 week. Status at Discharge Cognitive/behavioral status at discharge: oriented Functional status at discharge: independent ambulation Overall status at discharge: patient is back to baseline Time Spent with Patient Time spent: Greater than 30 minutes Exam Vital Signs (past 8 hours): Oxygen Delivery Method Room Air Oxygen Flow Rate 0 Narrative Exam Narrative: NAD, alert and oriented. Fluent speech. Lungs are clear, normal rate and effort. Heart is regular, no murmur gallop or rub. Abdomen is soft, non distended. Extremities are free of edema. Objective Imaging Multiple studies:: Radiologist's impression: Abdomen pelvis CT: Findings compatible with acute pancreatitis of the pancreatic head and uncinate process with suggestion of mild thrombosis involving segment of the superior mesenteric vein near the junction with the splenic vein. No other findings to suggest necrotizing pancreatitis. No organized fluid collection seen. Diffuse hepatic steatosis. Other chronic/non-acute findings as above. Labs 10/08/25 04:49 12/22/24 04:49 Labs: Laboratory Results - last 24 hr 12/21/24 12/21/24 12/21/24 11:55 16:49 20:19 WBC RBC Hgb Hct MCV MCH MCHC RDW Plt Count Neut % (Auto) Lymph % (Auto) [place] % (Auto) Eos % (Auto) Baso % (Auto) Neut # (Auto) Lymph # (Auto) [place] # (Auto) Eos # (Auto) Baso # (Auto) Sodium Potassium Chloride Carbon Dioxide BUN Creatinine Estimated GFR BUN/Creatinine Ratio Glucose POC Whole Bld Glucose 205 H 226 H 216 H Calcium Total Bilirubin AST ALT Alkaline Phosphatase Total Protein Albumin Globulin Albumin/Globulin Ratio Lipase 12/22/24 12/22/24 12/22/24 01:33 04:49 08:16 WBC 4.6 RBC 3.69 L Hgb 11.9 L Hct 35.5 L MCV 96.2 MCH 32.3 MCHC 33.6 RDW 12.6 Plt Count 217 Neut % (Auto) 59.2 Lymph % (Auto) 20.4 L [place] % (Auto) 14.2 H Eos % (Auto) 5.5 H Baso % (Auto) 0.7 Neut # (Auto) 2700 Lymph # (Auto) 900 L [place] # (Auto) 700 Eos # (Auto) 300 Baso # (Auto) 0 Sodium 137 Potassium 3.4 Chloride 110 H Carbon Dioxide 10 L BUN 2 L Creatinine 0.48 L Estimated GFR > 60 BUN/Creatinine Ratio 4.2 L Glucose 203 H POC Whole Bld Glucose 195 H 216 H Calcium 7.5 L Total Bilirubin 0.5 AST 34 ALT 39 H Alkaline Phosphatase 70 Total Protein 6.0 L Albumin 3.2 L Globulin 2.8 Albumin/Globulin Ratio 1.1 Lipase 281 PFSH Medical History Other specified diabetes mellitus with hyperglycemia Pancreatitis DKA (diabetic ketoacidosis) demise due to miscarriage UTI (urinary tract infection) Urinary frequency Hair loss Chronic seasonal allergic rhinitis Irregular periods/menstrual cycles Moderate mixed hyperlipidemia not requiring statin therapy Borderline hypothyroidism Alopecia Lichen sclerosus et atrophicus of the vulva Depression Anxiety GERD (gastroesophageal reflux disease) Surgical History History of nephrolithotomy with removal of calculi (2012) History of third molar tooth extraction (1998) Status post delivery (2008) Family History Mother Thyroid disease Father Heart valve disorder Social History household members: spouse and children alcohol intake: current Discharge Assessment & Plan Assessment and Plan Assessment: 1. Recurrent pancreatitis, improved 2. 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 DM Plan of Treatment: Discharge home, start dabigatran 150 b.i.d.. Pain medications and needed close follow up with PCP. Discharge Plan Discharge Plan Patient Disposition: Home Provider Discharge Comment: Stable for discharge home. Discharge orders & Medications Prescriptions: New prochlorperazine maleate [Compazine] 5 mg tablet 5 mg PO TID PRN (Reason: nausea and vomiting) Qty: 14 0RF hydrocodone-acetaminophen 5-325 mg tablet 1 tab PO Q6H PRN (Reason: pain) Qty: 14 0RF dabigatran etexilate 150 mg capsule 150 mg PO BID Qty: 60 1RF Continued finasteride 5 mg tablet 5 mg PO DAILY (DME) FreeStyle Josh 3 [place] Misc See Rx Instructions .Route Qty: 1 3RF Rx Instructions: Use for continuous blood glucose monitoring. Replace yearly or if broken alprazolam 1 mg tablet 1 mg PO BID-TID PRN (Reason: anxiety) Qty: 45 3RF (DME) pen needle, diabetic [Pen Needle] 32 gauge x 5/32 needle See Rx Instructions .Route Qty: 400 0RF Rx Instructions: Use to inject up to 4x daily (DME) FreeStyle Josh 3 Plus Sensor Device See Rx Instructions .Route Qty: 3 12RF Rx Instructions: Use for continuous blood glucose monitoring. Replace every 10 days (DME) lancets [OneTouch Delica Plus Lancet] 33 gauge misc See Rx Instructions .Route Qty: 200 2RF Rx Instructions: Use to test four times daily Glucagon Emergency Kit (human) 1 mg recon soln 1 mg SUBCUT Q20M PRN (Reason: hypoglycemia) Qty: 1 0RF Rx Instructions: until target blood sugar attained insulin lispro 100 unit/mL insulin pen 1 sliding scale dose SUBCUT TIDWMEAL MDD 30 Units Qty: 15 2RF Rx Instructions: Sliding scale: Give 1U of humalog per 15g of carbs Give extra units based on BG readings: 150-200: +1U of Humalog 200-250: +2U of Humalog 250-300: +3U of Humalog 300-350: +3U of Humalog 350-400: +5U of Humalog >400: +6U of Humalog rosuvastatin 5 mg tablet 10 mg PO .QHS Qty: 180 2RF venlafaxine 37.5 mg capsule,extended release 24hr 37.5 mg PO DAILY Qty: 90 3RF (DME) Accu-Chek Guide test strips Strip See Rx Instructions .Route Qty: 400 0RF Rx Instructions: Use to check up to 4x daily ondansetron 4 mg tablet,disintegrating 4 mg PO Q6H PRN (Reason: nausea and vomiting) Qty: 10 0RF insulin glargine [Lantus Solostar U-100 Insulin] 100 unit/mL (3 mL) insulin pen 18 unit SUBCUT DAILY Follow up/Referrals: Marco Saenz MD [Primary Care Provider, Family Practice] Diet/Activity/Treatments Diet: Carb-consistent/Diabetic Diet comment: Slow advance of diet. Visit Report/Discharge Packet Instructions: DI for Pancreatitis, DI for Deep Vein Thrombosis Stand Alone Forms: Patient Portal/API Discharge Data Primary Care Provider: Marco Saenz Quality VTE Deep Vein Thrombosis/Pulmonary Embolism Present on Admission: No
== END 2024-12-22 10:45 | disposition home or self-care (01) | DRG 438 ==
LOC: ED 15:46 → AC 16:32
PROVIDERS: Admitting Provider Internal Medicine; Emergency Provider Family Medicine; PCP Family Medicine; Referring Provider Family Medicine; Visit Provider Internal Medicine
DX: K85.90 Acute pancreatitis without necrosis or infection, unspecified (principal); K55.059 Acute (reversible) ischemia of intestine, part and extent unspecified; E11.9 Type 2 diabetes mellitus without complications; E78.5 Hyperlipidemia, unspecified; F41.9 Anxiety disorder, unspecified; F32.A Depression, unspecified; Z79.4 Long term (current) use of insulin; Z87.891 Personal history of nicotine dependence
CPT/HCPCS: 36415; 74177; 80053; 81003; 81015; 81025; 82962; 83690; 85025; 96361; 96374; 96375; 99284; A9270; J0780; J1650; J1815; J1885; J2272; J2405; J7030; J7040; J7120; Q9967

== ENCOUNTER 2025-01-19 17:19 | Emergency (ER) | payer OTHER, SELFPAY ==
[2024-12-18 17:49] VITALS: BMI 27.7
[2025-01-19 17:38] VITALS: BP 122/81; PULSE 95; RESP 19; TEMP 36.5; O2SAT 100; BMI 25.0
--- NOTE | 2025-01-19 18:09 | ED_ITS ---
HPI - General Adult
--- NOTE | 2025-01-19 18:09 | ED.GENADULT ---
HPI - General Adult General Chief complaint: Abdominal Pain Stated complaint: painful swallowing/eating- hx of pancreatitis Time Seen by Provider: 01/19/25 18:08 Source: patient Mode of arrival: Ambulatory History of Present Illness HPI narrative: 44-year-old female with history of diabetes mellitus, hypertriglyceridemia, anxiety/depression, umbilical hernia, anemia, had recent admission here for pancreatitis with abdominal venous thrombosis, started on Pradaxa, discharged home, now having 2 days duration difficulty swallowing, worsening epigastric and lower substernal midline chest discomfort. Yesterday felt like she could not swallow well, was frequently spitting, a little bit better today. Still having upper abdominal lower chest discomfort. She takes occasional Pepcid, no other chronic/recent antacid treatments. Denies prior upper endoscopy evaluations. No known esophageal lesions, strictures, cancers. Related Data Home Medications ?Medication ?Instructions ?Recorded ?Confirmed finasteride 5 mg tablet 5 mg PO DAILY 04/14/23 12/28/24 insulin glargine 100 unit/mL (3 18 unit SUBCUT DAILY 12/18/24 12/28/24 mL) subcutaneous pen (Lantus Solostar U-100 Insulin) Previous Rx's ?Medication ?Instructions ?Recorded blood sugar diagnostic (Accu-Chek #400 ea 12/25/22 Guide test strips) ondansetron 4 mg disintegrating 4 mg PO Q6H PRN nausea and 11/22/23 tablet vomiting #10 tabs 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,can sealer,cont #1 ea 02/23/24 (FreeStyle Josh 3 Ridgeway) 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 sensor (FreeStyle #3 ea 05/18/24 Josh 3 Plus Sensor device) glucagon 1 mg solution for 1 mg SUBCUT Q20M PRN hypoglycemia 08/12/24 injection (Glucagon Emergency Kit) #1 ea lancets 33 gauge (OneTouch Delica #200 ea 08/12/24 Plus Lancet) insulin lispro 100 unit/mL 1 sliding scale dose SUBCUT 10/18/24 subcutaneous pen TIDWMEAL #15 mL rosuvastatin 5 mg tablet 10 mg (2 x 5 mg) PO .QHS #180 tabs 10/21/24 venlafaxine 37.5 mg 37.5 mg PO DAILY #90 caps 10/29/24 capsule,extended release 24 hr prochlorperazine maleate 5 mg 5 mg PO TID PRN nausea and 12/22/24 tablet (Compazine) vomiting #14 tabs pen needle, diabetic 32 gauge x #400 ea 12/27/24 (Pen Needle) alprazolam 1 mg tablet 1 mg PO BID-TID PRN anxiety #45 12/28/24 tabs dabigatran etexilate 150 mg capsule 150 mg PO BID #60 caps 12/28/24 hydrocodone 5 mg-acetaminophen 325 1 tab PO Q6H PRN pain #28 tabs 12/28/24 mg tablet omeprazole 20 mg capsule,delayed 20 mg PO DAILY upper abdominal 01/19/25 release pain 30 days #30 caps sucralfate 1 gram tablet (Carafate) 1 g PO BID #60 tabs 01/19/25 Allergies Allergy/AdvReac Type Severity Reaction Status Date / Time hydromorphone (HYDROMORPHONE) AdvReac Severe severe Verified 01/19/25 17:39 vomiting and dizziness levothyroxine AdvReac Intermediate Bloating Verified 01/19/25 17:39 amoxicillin (From AUGMENTIN) AdvReac Mild vomiting Verified 01/19/25 17:39 ciprofloxacin (From CIPRO) AdvReac Mild vomiting Verified 01/19/25 17:39 clavulanic acid (From AdvReac Mild vomiting Verified 01/19/25 17:39 AUGMENTIN) favian (FAVIAN) AdvReac Mild vomiting Verified 01/19/25 17:39 papaya (PAPAYA) AdvReac Mild vomiting Verified 01/19/25 17:39 tramadol (TRAMADOL) AdvReac Mild vomiting Verified 01/19/25 17:39 Patient History Medical History Other specified diabetes mellitus with hyperglycemia Pancreatitis DKA (diabetic ketoacidosis) demise due to miscarriage UTI (urinary tract infection) Urinary frequency Hair loss Chronic seasonal allergic rhinitis Irregular periods/menstrual cycles Moderate mixed hyperlipidemia not requiring statin therapy Borderline hypothyroidism Alopecia Lichen sclerosus et atrophicus of the vulva Depression Anxiety GERD (gastroesophageal reflux disease) Surgical History History of nephrolithotomy with removal of calculi (2012) History of third molar tooth extraction (1998) Status post delivery (2008) Family History Mother Thyroid disease Father Heart valve disorder Social History household members: spouse and children alcohol intake: current tobacco type: cigarettes alcohol intake frequency: 0-2 drinks per day Exam Narrative Exam Narrative: GENERAL: Well-developed patient, in mild distress. HEAD: Atraumatic. Normocephalic. EYES: Pupils equal round and reactive. Extraocular motions intact. No scleral icterus. No injection or drainage. ENT: Nose without bleeding, purulent drainage. Throat without erythema, tonsillar hypertrophy or exudate. Airway patent. NECK: Trachea midline. Non tender CARDIOVASCULAR: Regular rate and rhythm without murmurs, gallops, or rubs. RESPIRATORY: Clear to auscultation. Breath sounds equal bilaterally. No wheezes, rales, or rhonchi. GASTROINTESTINAL: Abdomen soft, non-tender, nondistended. EXTREMITIES: No edema or joint tenderness. BACK: Nontender without deformity or crepitance. No flank tenderness. NEURO: AOx3. Motor functions grossly nonfocal. SKIN: No rash or erythema of visible areas Initial Vital Signs Initial Vital Signs: Vital Signs Temperature 97.7 F 01/19/25 17:38 Pulse Rate 95 H 01/19/25 17:38 Respiratory Rate 19 01/19/25 17:38 Blood Pressure 122/81 01/19/25 17:38 Pulse Oximetry 100 01/19/25 17:38 Oxygen Delivery Method Room Air 01/19/25 17:38 Course Orders Ordered: Discontinued Medications Al Hydrox/Mg Hydrox/Simethicone 30 ml/ Lidocaine HCl 15 ml 0 ml PO NOW ONE Stop: 01/19/25 18:52 Last Admin: 01/19/25 18:55 Dose: 45 ml Documented By: JEAN Lactated Ringer's (Lactated Ringers) 1,000 mls @ 1,000 mls/hr IV BOLUS ONE Stop: 01/19/25 20:11 Last Admin: 01/19/25 21:09 Dose: Not Given Documented By: RUTH Ondansetron HCl (Ondansetron 4 Mg/2 Ml Inj) 4 mg IV NOW PRN PRN Reason: Nausea And Vomiting Ondansetron HCl (Ondansetron 4 Mg Odt) 4 mg PO NOW PRN PRN Reason: Nausea And Vomiting Pantoprazole Sodium (Pantoprazole 40 Mg Vial) 40 mg IV NOW ONE Stop: 01/19/25 18:15 Last Admin: 01/19/25 18:18 Dose: 40 mg Documented By: UNA Vital Signs Vital signs: Vital Signs - 8 hr 01/19/25 17:38 Temperature 97.7 F Pulse Rate 95 H Respiratory Rate 19 Blood Pressure 122/81 Pulse Oximetry 100 Oxygen Delivery Method Room Air Medical Decision Making Lab Data Lab results reviewed: Yes I reviewed the patient's lab results. Lab results narrative: White blood cell count 6200, hemoglobin 13.8, platelets adequate. Glucose 233. Normal renal function, serum potassium, serum sodium. Serum CO2 18 slight decreased. Liver functions and lipase normal. 01/19/25 18:02 01/19/25 18:02 Labs: Lab Results 01/19/25 Range/Units 18:02 WBC 6.2 (4.5-11.0) X10^3/uL RBC 4.31 (4.0-5.2) X10^6/uL Hgb 13.8 (12.0-16.0) g/dL Hct 40.8 (36-46) % MCV 94.5 (80-100) fL MCH 31.9 (26-34) PG MCHC 33.7 (30-36) % RDW 12.9 (11.6-14.8) % Plt Count 280 (150-400) X10^3/uL Neut % (Auto) 64.6 (50-75) % Lymph % (Auto) 19.6 L (25-40) % [place] % (Auto) 11.1 (3-14) % Eos % (Auto) 4.1 H (2-4) % Baso % (Auto) 0.6 (0-2) % Neut # (Auto) 4000 (3016-7734) /uL Lymph # (Auto) 1200 (7655-5252) /uL [place] # (Auto) 700 (0-900) /uL Eos # (Auto) 300 (0-450) /uL Baso # (Auto) 0 (0-100) /uL Sodium 132 L (137-145) mmol/L Potassium 4.1 (3.4-5.1) mmol/L Chloride 98 (98-107) mmol/L Carbon Dioxide 18 L (22-32) mmol/L BUN 9 (7-17) mg/dL Creatinine 0.47 L (0.52-1.04) mg/dL Estimated GFR > 60 (>60) mL/min BUN/Creatinine Ratio 19.1 (6-22) Glucose 233 H (70-99) mg/dL Calcium 9.8 (8.4-10.2) mg/dL Total Bilirubin 0.4 (0.2-1.3) mg/dL AST 27 (14-36) IU/L ALT 26 (<35) IU/L Alkaline Phosphatase 72 (38-126) U/L Total Protein 7.6 (6.3-8.2) g/dL Albumin 4.5 (3.5-5.0) g/dL Globulin 3.1 (1.7-4.1) g/dL Albumin/Globulin Ratio 1.5 (1.0-2.8) Lipase 154 (23-300) U/L Imaging Data CT chest abdomen and pelvis: Radiologist's Impression: [place] [address] CT Scan Report Signed Patient: Emmy Neri MR#: [id number] : 1980 Acct:[id number] Age/Sex: 44 / F Date of Service: 01/19/25 Loc: ED Accession Number: [id number] Procedure: CT chest abd pel w con Ordering Provider: Mesfin Qureshi MD PROCEDURE: CT CHEST ABD PEL W CON INDICATIONS: trouble swallowing, chest/abd pain, recent pancreatitis TECHNIQUE: After the administration of intravenous contrast, 5 mm thick sections acquired from the lung apices to the symphysis. 5 mm coronal and sagittal reformats were performed, with additional 7 mm MIP reformats through the lungs. For radiation dose reduction, the following was used: automated exposure control, adjustment of mA and/or kV according to patient size. COMPARISON: [facility], CT, CT ABDOMEN PELVIS W CON, 12/18/2024, 14:29. FINDINGS: Image quality: Excellent. CHEST: Lower Neck: No enlarged lymph nodes. Thyroid: No thyroid nodules which require sonographic follow up, per consensus guidelines. Axillae: No enlarged lymph nodes. Chest Wall: Unremarkable. Lungs and Pleura: No pneumothorax or pleural effusions. No consolidation or suspicious nodules. Heart: Heart size is normal. No pericardial effusion. Thoracic Vessels: The aorta and pulmonary arteries demonstrate normal size. Mediastinum and Alissa: No enlarged lymph nodes. Esophagus: Mild mid to distal esophageal wall thickening is seen. Small hiatal hernia. ABDOMEN: Liver: No solid mass. Gallbladder: No radiopaque gallstones or wall thickening. Biliary ducts: No biliary dilation. Pancreas: No ductal dilation. Spleen: Size is within normal limits. Adrenal Glands: No adrenal nodules. Kidneys and Ureters: No hydronephrosis. No solid mass. No complex renal cystic lesion which requires follow up. Stomach and Bowel: Normal colonic caliber, without significant wall thickening. Normal appendix. No abscess collection. Peritoneum: No abnormal intraperitoneal fluid. No free air. Ventral Wall: No significant ventral hernia. Abdominal Nodes: No retroperitoneal or mesenteric adenopathy by size criteria. Vessels: Aorta and inferior vena cava are normal in size. PELVIS: Pelvic Organs: Unremarkable. Bladder: No bladder wall thickening, accounting for underdistention. Pelvic Nodes: No enlarged lymph nodes. Miscellaneous: No inguinal hernias are seen. Bones: No aggressive osseous abnormality. IMPRESSION: 1. Questionable mild mid to distal esophageal wall thickening which may represent low-grade esophagitis. 2. Small hiatal hernia. No bowel obstruction or abnormal bowel wall thickening. No free fluid or free air. Normal appendix. 3. No focal infiltrate, pleural effusion or pneumothorax. 4. No abnormally enlarged lymph nodes are seen in chest, abdomen or pelvis. 5. No significant inflammatory changes are noted associated with pancreas. No peripancreatic fluid collection. Dictated by: Saran Johnson M.D. on 01/19/2025 at 18:35 Approved by: Saran Johnson M.D. on 01/19/2025 at 18:38 ECG Data Attestation: I personally reviewed and interpreted this ECG as follows: Interpretation: 181, normal sinus rhythm with rate of 86, no obvious ST segment elevation or depression changes. W[place] 132, QRS 82, QTC 452. MDM Narrative Medical decision making narrative: 44-year-old female with history of diabetes, hypertriglyceridemia, recent admission here for acute pancreatitis, blood clot diagnosed then as well, on Pradaxa, having 2 days duration of difficulty swallowing, epigastric and lower chest discomfort. Not taking regular antacids. Tried Tums without help. Had significant difficulty swallowing secretions yesterday, slightly improvement. Persistent pain. Afebrile, sirs screen negative. DDx esophageal obstruction, esophagitis, extrinsic compression esophagus, esophageal stricture, gastric outlet obstruction, referred pain from recurrent pancreatitis, referred pain from interval formation pancreatic pseudocyst, other. Labs pending. CT chest abdomen and pelvis discussed, GFR pending. Declines IV analgesics when offered. IV Protonix. EKG shows normal sinus rhythm without obvious ischemic changes. Lab data: White blood cell count 6200, hemoglobin 13.8, platelets adequate. Glucose 233. Normal renal function, serum potassium, serum sodium. Serum CO2 18 slight decreased. Liver functions and lipase normal. GFR favorable, CT chest abdomen pelvis with IV contrast ordered. CT chest abdomen and pelvis. IMPRESSION: 1. Questionable mild mid to distal esophageal wall thickening which may represent low-grade esophagitis. 2. Small hiatal hernia. No bowel obstruction or abnormal bowel wall thickening. No free fluid or free air. Normal appendix. 3. No focal infiltrate, pleural effusion or pneumothorax. 4. No abnormally enlarged lymph nodes are seen in chest, abdomen or pelvis. 5. No significant inflammatory changes are noted associated with pancreas. No peripancreatic fluid collection. See radiology report. GI cocktail. IV Protonix given prior. Able to swallow GI cocktail, symptoms improved. Discharged on omeprazole with Carafate, consider outpatient EGD. Prescriptions for omeprazole and Carafate sent to her requested pharmacy. Discharged home with family. Advised EGD, given contact information for local general surgery, though might require referral from PCP. Patient/ expressed understanding. Discharged home. Return precautions discussed. Discharge Plan Departure Patient Disposition: Home Clinical Impression: Esophagitis Activity Restrictions/Additional Instructions: Recent admission for pancreatitis, painful swallowing, slightly improved today versus yesterday but persisting symptoms. Able to swallow your secretions today. CT chest abdomen and pelvis was performed, no acute pancreatitis changes noted, there was some thickening of the mid distal esophagus, consider esophagitis. There was no description of any structure or mass that was pushing extrinsically on the esophagus. Concern for esophagitis, no specific mentioned of stricture or mass. Trial of antacid. IV Protonix given. GI cocktail given. Trial of omeprazole and Carafate antacid. Consider upper endoscopy to further evaluate the esophageal thickening region, possible biopsies, to make sure there is no cancerous or other concern. Contact information given for general surgery for upper endoscopy, you might need referral from your regular doctor. Follow up with your regular doctor in the next couple of days. Return to this/nearest emergency department for any change worsening symptoms or any concerns prior. There were no mentioned of any blood clotting problems on today's imaging of the chest abdomen and pelvis, though you had recent blood clot, and your started on Pradaxa/dabigatran, continue this medication for now. Prescriptions: New sucralfate [Carafate] 1 gram tablet 1 g PO BID Qty: 60 0RF omeprazole 20 mg capsule,delayed release(DR/EC) 20 mg PO DAILY 30 Days Qty: 30 0RF No Action finasteride 5 mg tablet 5 mg PO DAILY (DME) FreeStyle Josh 3 [place]way Misc See Rx Instructions .Route Qty: 1 3RF Rx Instructions: Use for continuous blood glucose monitoring. Replace yearly or if broken (DME) FreeStyle Josh 3 Plus Sensor Device See Rx Instructions .Route Qty: 3 12RF Rx Instructions: Use for continuous blood glucose monitoring. Replace every 10 days (DME) lancets [OneTouch Delica Plus Lancet] 33 gauge misc See Rx Instructions .Route Qty: 200 2RF Rx Instructions: Use to test four times daily Glucagon Emergency Kit (human) 1 mg recon soln 1 mg SUBCUT Q20M PRN (Reason: hypoglycemia) Qty: 1 0RF Rx Instructions: until target blood sugar attained insulin lispro 100 unit/mL insulin pen 1 sliding scale dose SUBCUT TIDWMEAL MDD 30 Units Qty: 15 2RF Rx Instructions: Sliding scale: Give 1U of humalog per 15g of carbs Give extra units based on BG readings: 150-200: +1U of Humalog 200-250: +2U of Humalog 250-300: +3U of Humalog 300-350: +3U of Humalog 350-400: +5U of Humalog >400: +6U of Humalog rosuvastatin 5 mg tablet 10 mg PO .QHS Qty: 180 2RF venlafaxine 37.5 mg capsule,extended release 24hr 37.5 mg PO DAILY Qty: 90 3RF (DME) pen needle, diabetic [Pen Needle] 32 gauge x 5/32 needle See Rx Instructions .Route Qty: 400 0RF Rx Instructions: Use to inject up to 4x daily alprazolam 1 mg tablet 1 mg PO BID-TID PRN (Reason: anxiety) Qty: 45 3RF hydrocodone-acetaminophen 5-325 mg tablet 1 tab PO Q6H PRN (Reason: pain) Qty: 28 0RF dabigatran etexilate 150 mg capsule 150 mg PO BID Qty: 60 2RF (DME) Accu-Chek Guide test strips Strip See Rx Instructions .Route Qty: 400 0RF Rx Instructions: Use to check up to 4x daily ondansetron 4 mg tablet,disintegrating 4 mg PO Q6H PRN (Reason: nausea and vomiting) Qty: 10 0RF insulin glargine [Lantus Solostar U-100 Insulin] 100 unit/mL (3 mL) insulin pen 18 unit SUBCUT DAILY prochlorperazine maleate [Compazine] 5 mg tablet 5 mg PO TID PRN (Reason: nausea and vomiting) Qty: 14 0RF Referrals: Reno Mcgowan MD [Physician, General Surgery] Marco Saenz MD [Primary Care Provider, Family Practice] Stand Alone Forms: Patient Portal/API
[2025-01-19 18:12] LABS: Add Manual Diff / Slide Review NO; Hematocrit 40.8 % (36-46); Hemoglobin 13.8 g/dL (12.0-16.0); Lymphocytes Absolute Auto 1200 /uL (1100-4500); Mean Corpuscular HGB Conc 33.7 % (30-36); Mean Corpuscular Hemoglobin 31.9 PG (26-34); Mean Corpuscular Volume 94.5 fL (80-100); Platelet Count 280 X10^3/uL (150-400)
--- NOTE | 2025-01-19 18:14 | DI.CT.S_ITS ---
PROCEDURE: CT CHEST ABD PEL W CON
--- NOTE | 2025-01-19 18:17 | EKG_ITS ---
[facility]
[2025-01-19] MEDS: PANTOPRAZOLE 40 MG VIAL IV (18:18)
--- NOTE | 2025-01-19 18:18 | PC.NURSE ---
Pt denies abdominal pain
[2025-01-19 18:30] LABS: Alanine Aminotransferase 26 IU/L (<35); Albumin 4.5 g/dL (3.5-5.0); Albumin Globulin Ratio 1.5 (1.0-2.8); Alkaline Phosphatase 72 U/L (38-126); Blood Urea Nitrogen 9 mg/dL (7-17); Calcium 9.8 mg/dL (8.4-10.2); Carbon Dioxide 18 mmol/L (22-32); Chloride 98 mmol/L (98-107); Estimated Glomerular Filt Rate > 60 mL/min (>60); Globulin 3.1 g/dL (1.7-4.1); Glucose 233 mg/dL (70-99); HEMOLYSIS < 15 (0-50); Lipase 154 U/L (23-300); Potassium 4.1 mmol/L (3.4-5.1); Sodium 132 mmol/L (137-145); Total Protein 7.6 g/dL (6.3-8.2)
[2025-01-19] MEDS: MAG HYDROX/ALUMINUM/SIMETH SUS 30 ML, LIDOCAINE VISCOUS 2% 15 ML PO (18:55)
== END 2025-01-19 21:14 | disposition home or self-care (01) ==
PROVIDERS: Emergency Medicine; Emergency Provider Emergency Medicine; PCP Family Medicine
DX: K20.90 Esophagitis, unspecified without bleeding (principal); R07.9 Chest pain, unspecified
CPT/HCPCS: 36415; 71260; 74177; 80053; 83690; 85025; 93005; 96374; 99284; J2470; Q9967

== ENCOUNTER → 2025-01-20 08:39 | Outpatient (CLI) | payer OTHER, SELFPAY ==
[2024-12-18 17:49] VITALS: BMI 27.7
[2025-01-20 09:12] LABS: Hemoglobin A1C% w Est Avg Glu 7.1 % (4.0-6.0)
== END ==
PROVIDERS: PCP Family Medicine; Referring Provider Family Medicine; Visit Provider Family Medicine
DX: E13.65 Other specified diabetes mellitus with hyperglycemia (principal); E78.5 Hyperlipidemia, unspecified; E78.1 Pure hyperglyceridemia
CPT/HCPCS: 83036

== ENCOUNTER 2025-03-04 06:35 | Day surgery (SDC) | payer OTHER, SELFPAY ==
[2024-12-18 17:49] VITALS: BMI 27.7
[2025-02-28 09:24] VITALS: BMI 25.4
[2025-03-04] VITALS (8 sets, daily range): BP systolic 112–125; BP diastolic 55–80; PULSE 99–112; RESP 18–20; TEMP 36.2–36.9; O2SAT 94–96
--- NOTE | 2025-03-04 | PATH_ITS ---
[facility] Accession Number: [id number] No. of containers..04 Tissue . 01 Material submitted: . PART A: stomach - STOMACH, ANTRUM PART B: esophagus, E-G Junction - GASTROESOPHAGEAL JUNCTION PART C: esophagus - ESOPHAGUS, DISTAL PART D: esophagus - ESOPHAGUS, UPPER . 01 Diagnosis: Part A: STOMACH, ANTRUM: Gastric mucosa with mild chronic inflammation. No Helicobacter organisms identified. No intestinal metaplasia, dysplasia, or malignancy identified. . Part B: GASTROESOPHAGEAL JUNCTION: Gastroesophageal junction mucosa with mild chronic inflammation. No goblet cell metaplasia, dysplasia, or malignancy identified. . Part C: ESOPHAGUS, DISTAL: Squamous mucosa with no diagnostic alterations. Eosinophils are not increased. . Part D: ESOPHAGUS, UPPER: Squamous mucosa with no diagnostic alterations. Eosinophils are not increased. [facility] 03/09/20251716 Local . 01 Electronically signed: . David Mckinnon MD, Pathologist NPI- [id number] . 01 Gross description: . A. Received in formalin with two patient identifiers, and antrum are two, 0.2-0.3 cm branch tissue fragments, entirely submitted in A1. . B. Received in formalin with two patient identifiers, and gastroesophageal junction are three, 0.1-0.3 cm, branch tissue fragments, entirely submitted in B1. . C. Received in formalin with two patient identifiers, and distal esophagus are two, 0.1-0.2 cm branch tissue fragments, entirely submitted in C1. . D. Received in formalin with two patient identifiers, and upper esophagus are two, 0.1-0.3 cm branch tissue fragments, entirely submitted in D1. ([id number]) /MRV 03/09/20251716 Local . 01 Microscopic: . Part A: ANTRUM: An immunohistochemical stain was performed to evaluate for Helicobacter organisms and is negative. The control stains appropriately. * This test was developed and the performance characteristics were validated by [employer]. It has not been cleared or approved by the Food and Drug Administration. . Part B: GASTROESOPHAGEAL JUNCTION: An ABPAS stain was performed to evaluate for goblet cell metaplasia and is negative. The control stains appropriately. . 01 Pathologist provided ICD-10: K20.90, K29.50 . 01 CPT . 767770, 181446, 707941, 230978, 861373, [id number] Specimen Comment: A courtesy copy of this report has been sent to [phone] Performed at: [address] [facility] [address] [address], [place], [place] [id number] MD David Mckinnon MD Phone: [phone]
[2025-03-04] MEDS: LACTATED RINGERS 1,000 ML 42 ML IV (07:10)
--- NOTE | 2025-03-04 07:35 | PM.PREOP ---
Pre-operative Note COVID-19 COVID-19 status: Not tested Interval Note History & Physical reviewed/Exam performed by Physician: Yes Changes to H&P: No ASA Class (for procedural sedation): II
--- NOTE | 2025-03-04 07:59 | PM.OP.EGD ---
Operative Date/Time/Diagnoses Date of procedure: 03/04/25 Time of procedure: 07:59 Pre-op diagnosis: Dysphagia Post-op diagnosis: same Procedure & Clinicians Study performed: Esophagogastroduodenoscopy Same procedure(s) as scheduled: Yes Surgeon: Reno Mcgowan Anesthesia Type: MAC +/- Procedure Notes Procedure in detail: Surgeon: Reno Mcgowan MD Anesthesia: Diane Franco INTERVENTIONAL PAIN PHYSICIAN A timeout was performed. A bite blocked was placed. The patient was positioned in the left lateral decubitus position. Anesthesia was administered. The endoscope was inserted through the bite block and passed through the esophagus and stomach and into the duodenum. The duodenal mucosa appeared normal. The scope was withdrawn into the duodenal bulb and no abnormalities were seen. The scope was withdrawn into the stomach. Random biopsies were taken from the antrum with cold forceps. The rest of the stomach was normal. The scope was retroflexed and a very small hiatal hernia was noted. The scope was withdrawn into the esophagus and a very short-segment of salmon-colored mucosa was noted at the GE junction and biopsies were taken with cold forceps.. The remainder of the esophagus was normal. Random biopsies were taken from the distal esophagus and upper esophagus with the cold forceps. The scope was withdrawn. The patient was awakened and brought to recovery. Sedation time: 9 minutes Findings: Short-segment of salmon-colored mucosa at the GE junction Estimated Blood Loss: 5 Complications: none Post-procedure Disposition: PACU
[2025-03-04] MEDS: PROCHLORPERAZINE 10 MG/2 ML VIAL 5 MG IV (08:14)
== END 2025-03-04 08:40 | disposition home or self-care (01) ==
PROVIDERS: PCP Family Medicine; Referring Provider Surgery; Visit Provider Surgery
PROC: 0DJ08ZZ Inspection of Upper Intestinal Tract, Via Natural or Artificial Opening Endoscopic (ICD-10-PCS; CPT 43239; principal; 2025-03-04 07:45)
DX: R13.10 Dysphagia, unspecified (principal); E11.9 Type 2 diabetes mellitus without complications; Z79.4 Long term (current) use of insulin; K85.90 Acute pancreatitis without necrosis or infection, unspecified; Z79.01 Long term (current) use of anticoagulants; K55.059 Acute (reversible) ischemia of intestine, part and extent unspecified; K29.50 Unspecified chronic gastritis without bleeding
CPT/HCPCS: 43239; 82962; J0780; J2704; J7120